=== PATIENT | male | born 1970 | race Caucasian/White ===

== ENCOUNTER 2016-10-01 07:38 | Emergency (ER) | payer OTHER ==
[~2016-10-01] VITALS: Ht 175.3 cm; Wt 98.1 kg
[2016-10-01 07:43] VITALS: BP 171/105
[2016-10-01] MEDS ORDERED: MULT1TAB10 PO (07:46)
[2016-10-01] MEDS ORDERED: AMLO10TA2 PO (07:46)
[2016-10-01] MEDS ORDERED: GABA-283 PO (07:46)
[2016-10-01] MEDS ORDERED: HYDR25TAB PO (07:46)
[2016-10-01] MEDS ORDERED: TETRACAINE 0.5% OPHTH SOLN 4ML OD ONE (08:15)
[2016-10-01] MEDS ORDERED: FLUORESCEIN OPHTH 1 MG STRIP OD ONE (08:15)
[2016-10-01] MEDS ORDERED: OCUF0.25 OD (08:26)
== END 2016-10-01 08:44 | disposition home or self-care (01) ==
LOC: M ED 07:38
DX: S05.01XA Injury of conjunctiva and corneal abrasion without foreign body, right eye, initial encounter (principal); W22.8XXA Striking against or struck by other objects, initial encounter; Y92.019 Unspecified place in single-family (private) house as the place of occurrence of the external cause; Y93.9 Activity, unspecified; Y99.8 Other external cause status; G47.30 Sleep apnea, unspecified; Z87.39 Personal history of other diseases of the musculoskeletal system and connective tissue; Z79.899 Other long term (current) drug therapy

== ENCOUNTER 2017-12-04 08:20 | Emergency (ER) | payer OTHER | END 2017-12-04 08:59 | disposition home or self-care (01) | LOC: M ED 08:20 | DX: S52.592A Other fractures of lower end of left radius, initial encounter for closed fracture (principal); S52.615A Nondisplaced fracture of left ulna styloid process, initial encounter for closed fracture; W01.0XXA Fall on same level from slipping, tripping and stumbling without subsequent striking against object, initial encounter; Y92.410 Unspecified street and highway as the place of occurrence of the external cause; Y93.89 Activity, other specified; Y99.9 Unspecified external cause status; Z79.899 Other long term (current) drug therapy | CPT/HCPCS: 73110 ==

== ENCOUNTER → 2018-05-03 | Outpatient (CLI) | payer OTHER ==
[~2018-05-03] MED LIST: AMLO10TA5 PO; GABA-845 PO; HYDR25TAB PO; MULT1TAB10 PO; OCUF0.25 OD
--- NOTE | 2018-05-04 02:52 | REP ---
Clinical: Trauma. Technique: Frontal view of the chest with six views of the right hemithorax. Findings: Frontal view of the chest best demonstrates an acute posterolateral right 5th rib fracture. Multiple views of the right hemithorax demonstrate acute versus healed lateral right 7th - 10th rib fractures. No consolidation/contusion, effusion, or pneumothorax appreciated. Impression: Acute right lateral fifth rib fracture. Acute versus healed right 7th - 10th rib fractures. Electronically Signed by Vance Lozada MD 05/04/2018 02:43 A
== END ==
LOC: M WUC 18:06
PROVIDERS: ATTEND Physician Assistant
DX: S20.221A Contusion of right back wall of thorax, initial encounter (principal); S22.31XA Fracture of one rib, right side, initial encounter for closed fracture; Y93.9 Activity, unspecified; Y92.9 Unspecified place or not applicable; Y99.9 Unspecified external cause status; X58.XXXA Exposure to other specified factors, initial encounter

== ENCOUNTER 2020-10-13 06:54 | Emergency (ER) | payer OTHER ==
[~2020-10-13] VITALS: Ht 175.3 cm; Wt 99.3 kg
[~2020-10-13 06:54] MED LIST changes: -AMLO10TA5 PO; +AMLO1TAB25 PO; +GABA-283 PO; -GABA-845 PO; +HYDR-3490 PO; -HYDR25TAB PO
[2020-10-13 09:20] LABS: BASO % 0.2 % (0.0-1.0); HEMATOCRIT 46.8 % (42.0-52.0); HEMOGLOBIN 16.6 g/dl (13.5-17.5); LYMPH # 0.9 10^3/uL (1.5-5.0); LYMPH % 7.3 % (24.0-44.0); MEAN CORPUSCULAR HEMOGLOBIN 30.8 pg (27.0-33.0); MEAN CORPUSCULAR HGB CONC 35.5 g/dl (32.0-36.5); MEAN CORPUSCULAR VOLUME 86.8 fl (80.0-96.0); MONO # 0.8 10^3/uL (0.0-0.8); MONO % 6.1 % (2.0-8.0); NEUTROPHILS # 10.6 10^3/uL (1.5-8.5); PLATELET COUNT, AUTOMATED 251 10^3/uL (150-450); RED BLOOD COUNT 5.39 10^6/uL (4.30-6.10); WHITE BLOOD COUNT 12.3 10^3/uL (4.0-10.0)
[2020-10-13 09:52] LABS: ALBUMIN 3.8 GM/DL (3.2-5.2); ALT/SGPT 37 U/L (12-78); BILIRUBIN,DIRECT 0.3 MG/DL (0.0-0.2); BILIRUBIN,TOTAL 0.8 MG/DL (0.2-1.0); BLOOD UREA NITROGEN 16 MG/DL (7-18); CALCIUM LEVEL 8.9 MG/DL (8.5-10.1); CARBON DIOXIDE LEVEL 25 MEQ/L (21-32); CHLORIDE LEVEL 97 MEQ/L (98-107); CREATININE FOR GFR 1.15 MG/DL (0.70-1.30); GLOMERULAR FILTRATION RATE > 60.0 (>60); GLUCOSE, FASTING 111 MG/DL (70-100); POTASSIUM SERUM 3.5 MEQ/L (3.5-5.1); SODIUM LEVEL 132 MEQ/L (136-145); TOTAL PROTEIN 7.6 GM/DL (6.4-8.2)
[2020-10-13] MEDS ORDERED: ZITH500T PO (10:46)
[2020-10-13 11:03] VITALS: BP 126/81
== END 2020-10-13 11:04 | disposition home or self-care (01) ==
LOC: M ED 06:54
DX: A04.5 Campylobacter enteritis (principal); Z79.899 Other long term (current) drug therapy

== ENCOUNTER 2020-10-19 05:11 | Inpatient (IN) | payer OTHER ==
[~2020-10-19] VITALS: Ht 175.3 cm; Wt 89.4 kg
[~2020-10-19 05:11] MED LIST changes: +ZITH500T PO
[2020-10-19] MEDS ORDERED: NS 1,000 ML IV ONE ×2 (07:00→09:10)
[2020-10-19 07:35] LABS: BASO # 0.1 10^3/uL (0.0-0.2); BASO % 0.3 % (0.0-1.0); EOS # 0.2 10^3/uL (0.0-0.5); EOS % 1.1 % (0.0-3.0); HEMATOCRIT 45.9 % (42.0-52.0); HEMOGLOBIN 16.1 g/dl (13.5-17.5); LYMPH # 1.3 10^3/uL (1.5-5.0); MEAN CORPUSCULAR HEMOGLOBIN 30.6 pg (27.0-33.0); MEAN CORPUSCULAR HGB CONC 35.1 g/dl (32.0-36.5); MEAN CORPUSCULAR VOLUME 87.3 fl (80.0-96.0); MONO # 0.6 10^3/uL (0.0-0.8); MONO % 3.3 % (2.0-8.0); NEUTROPHILS # 16.6 10^3/uL (1.5-8.5); NEUTROPHILS % 85.9 % (36.0-66.0); PLATELET COUNT, AUTOMATED 349 10^3/uL (150-450); RED BLOOD COUNT 5.26 10^6/uL (4.30-6.10); WHITE BLOOD COUNT 19.3 10^3/uL (4.0-10.0)
[2020-10-19 07:54] LABS: AMORPHOUS SEDIMENT SMALL (NEGATIVE); APPEARANCE, URINE HAZY (CLEAR); BACTERIA, URINE AUTO 1+ (NEGATIVE); BILIRUBIN, URINE AUTO NEGATIVE (NEGATIVE); BLOOD, URINE BLOOD 3+ (NEGATIVE); COLOR, URINE AMBER (YELLOW); GLUCOSE, URINE (UA) AUTO 1+ mg/dL (NEGATIVE); KETONE, URINE AUTO NEGATIVE (NEGATIVE); LEUKOCYTE ESTERASE, URINE AUTO NEGATIVE (NEGATIVE); MUCUS, URINE SMALL (NEGATIVE); NITRITE, URINE AUTO NEGATIVE (NEGATIVE); PROTEIN, URINE AUTO 2+ mg/dL (NEGATIVE); RBC, URINE AUTO 1 /HPF (0-3); SPECIFIC GRAVITY URINE AUTO 1.009 (1.002-1.035); SQUAMOUS EPITHELIAL CELL UR AU 0 /HPF (0-6); UROBILINOGEN, URINE AUTO 0.2 mg/dL (0.0-2.0); WBC, URINE AUTO 3 /HPF (0-3)
[2020-10-19 08:58] LABS: BILIRUBIN,DIRECT 0.2 MG/DL (0.0-0.2); BILIRUBIN,TOTAL 0.9 MG/DL (0.2-1.0); CALCIUM LEVEL 7.6 MG/DL (8.5-10.1); CREATININE FOR GFR 4.34 MG/DL (0.70-1.30); GLOMERULAR FILTRATION RATE 15.5 (>60); POTASSIUM SERUM 4.2 MEQ/L (3.5-5.1); TOTAL PROTEIN 6.3 GM/DL (6.4-8.2)
[2020-10-19] MEDS ORDERED: GABA-282 PO (09:38)
[2020-10-19] MEDS ORDERED: GLUC500C37 PO (09:44)
[2020-10-19] MEDS ORDERED: SUPETAB44 PO (09:44)
[2020-10-19] MEDS ORDERED: VITMTA PO (09:44)
[2020-10-19] MEDS ORDERED: HOME MED LIST COMPLETE! XX SCH (09:45)
[2020-10-19] MEDS ORDERED: NS 0.45% IV SCH (11:00)
[2020-10-19] MEDS ORDERED: SODIUM BICARBONATE IV SCH (11:00)
[2020-10-19] MEDS ORDERED: POTASSIUM CHLORIDE IV SCH (11:00)
--- NOTE | 2020-10-19 11:14 | HPEPDOC ---
General Date of Admission Oct 19, 2020 at 09:30 Date of Service: Oct 19, 2020 Chief Complaint The patient is a 50-year-old male admitted with a reason for visit of Acute Kidney Injury Rhabdomyolysis. Source: Patient, RN/MD History of Present Illness 50-year-old male with past medical history of hypertension, sleep apnea on CPAP, chronic back pain, obesity, presented to the ED on 10/19/2020 for generalized muscle aches, pains, weakness and inability to ambulate properly. 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 Patient says 'I walk like I am 81 years old". Patient rates the muscle pains as 8/10, dull aching in nature involves his back muscles his leg muscles his arms and hands. Patient was here on 10/13/2020 for diarrhea, abdominal bloating and was found to have a Campylobacter diarrhea and was rachel celestino with a 3-day course of azithromycin which he finished on 10/16/2020. At present his diarrhea has resolved he does not have any nausea or vomiting or abdominal pain. In the ED he was found to have creatinine of 4.5, CPK of over 200,000, AST of over 5000, ALT of 1800. Patient was admitted for rhabdomyolysis and acute kidney injury. Home Medications Scheduled Amlodipine Besylate (Amlodipine Besylate) 10 Mg Tab, 10 MG PO DAILY, (Reported) Folic Acid/Vit B Complex and C (Super B Complex Tablet) 400 Mcg Tablet, 1 TAB PO DAILY, (Reported) Gabapentin (Gabapentin) 300 Mg Capsule, 600 MG PO TID, (Reported) Glucosa Schwarz 2Kcl/Chondroitin Schwarz (Glucosamine & Chondroitin Cap) 1 Each Capsule, 1 CAP PO DAILY, (Reported) Hydrochlorothiazide (Hydrochlorothiazide) 25 Mg Tab, 25 MG PO DAILY, (Reported) Multivitamins (Thera M Plus Tablet) 1 Each Tablet, 1 TAB PO DAILY, (Reported) Allergies Coded Allergies: No Known Allergies (Unverified , 03/04/14) Past Medical History Medical History Hypertension sleep apnea on CPAP chronic back pain obesity Surgical History Right shoulder and left shoulder surgery left bunionectomy right ulnar nerve release at the elbow and the cubital tunnel Family History Significant Family History: Cancer (prostate ca father), Hypertension (mother and father) Social History * Smoker: other (vape) Alcohol: rarely Drugs: denies A-FIB/CHADSVASC A-FIB History Current/History of A-Fib/PAF?: No Review of Systems Constitutional: Reports: Weakness; Denies: Chills, Fever, Night Sweats Eyes: Denies: Pain, Vision change ENT: Denies: Head Aches, Ear Pain, Dysphagia Skin: Denies: Rash, Lesions, Breakdown Pulmonary: Denies: Dyspnea, Cough Cardiovascular: Denies: Chest Pain, Palpitations, Orthopnea, Paroxysmal Noc. Dyspnea, Lt Headedness Gastrointestinal: Denies: Nausea, Vomiting, Abdominal Pain, Diarrhea Genitourinary: Denies: Dysuria, Frequency, Incontinence, Retention Hematologic: Denies: Bruising, Bleeding Excessively Musculoskeletal: Reports: Arm Pain, Leg Pain, Joint Pain, Muscle Pain Neurological: Denies: Change in speech, Confusion Physical Examination General Exam: Positive: Alert, Cooperative, No Acute Distress Eye Exam: Positive: PERRLA, Conjunctiva & lids normal, EOMI; Negative: Sclera icteric ENT Exam: Positive: Atraumatic, Mucous membr. moist/pink, Pharynx Normal Neck Exam: Positive: Supple; Negative: JVD, thyromegaly Chest Exam: Positive: Clear to auscultation, Normal air movement Heart Exam: Positive: Rate Normal, Regular Rhythm, Normal S1, Normal S2; Negative: Murmurs, Rubs Abdomen Exam: Positive: Normal bowel sounds, Soft; Negative: Tenderness, Hepatospenomegaly Extremity Exam: Negative: Clubbing, Cyanosis, Edema Skin Exam: Positive: Nl turgor and temperature; Negative: Breakdown, Lesion Neuro Exam: Positive: Normal Speech, Strength at 5/5 X4 ext, Cranial Nerves 3- 12 NL, Reflexes 2+ Psych Exam: Positive: Memory Intact, Oriented x 3 Vital Signs Vital Signs Date Time Temp Pulse Resp B/P (MAP) Pulse Ox O2 Delivery O2 Flow Rate FiO2 10/19/20 09:15 80 16 147/83 (104) 96 Room Air 10/19/20 07:37 98.6 Laboratory Data Labs 24H Laboratory Tests 2 10/19/20 07:12: Urine Color JALEN, Urine Appearance HAZY, Urine pH 6.0, Urine Specific [place] 1.009, Urine Protein 2+H, Urine Glucose (Auto)(UA) 1+H, Urine Ketones (Auto) NEGATIVE, Urine Blood 3+H, Urine Nitrite NEGATIVE, Urine Bilirubin NEGATIVE, Urine Urobilinogen 0.2, Urine Leukocyte Esterase (Auto) NEGATIVE, Urine WBC (Auto) 3, Urine RBC (Auto) 1, Urine Hyaline Casts (Auto) 0, Urine Bacteria (Auto) 1+H, Urine Squamous Epithelial Cells 0, Urine Amorphous Sediment (Auto) SMALLH, Urine Mucus (Auto) SMALL, Urine Sperm (Auto) , Urine Myoglobin POSITIVE 10/19/20 07:21: Immature Granulocyte % (Auto) 2.4, Neutrophils (%) (Auto) 85.9H, Lymphocytes (%) (Auto) 7.0L, Monocytes (%) (Auto) 3.3, Eosinophils (%) (Auto) 1.1, Basophils (%) (Auto) 0.3, Neutrophils # (Auto) 16.6H, Lymphocytes # (Auto) 1.3L, Monocytes # (Auto) 0.6, Eosinophils # (Auto) 0.2, Basophils # (Auto) 0.1, Nucleated Red Blood Cells % (auto) 0.0, Anion Gap 11, Glomerular Filtration Rate 15.5L, Calc ium Level 7.6L, Total Bilirubin 0.9, Direct Bilirubin 0.2, Aspartate Amino Transf (AST/SGOT) 5624H, Alanine Aminotransferase (ALT/SGPT) 1899H, Alkaline Phosphatase 69, Total Creatine Kinase 183042F, Total Protein 6.3L, Albumin 3.0L, Albumin/Globulin Ratio 0.9 10/19/20 08:56: CBC/BMP Laboratory Tests 10/19/20 07:21 Assessment/Plan 50-year-old male with past medical history of hypertension, sleep apnea on CPAP, chronic back pain, obesity, presented to the ED on 10/19/2020 for generalized muscle aches, pains, weakness and inability to ambulate properly. 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 Patient says 'I walk like I am 81 years old". Patient was here on 10/13/2020 for diarrhea, abdominal bloating and was found to have a Campylobacter diarrhea and was treated with a 3-day course of azithromycin which he finished on 10/16/2020. At present his diarrhea has resolved he does not have any nausea or vomiting or abdominal pain. In the ED he was found to have creatinine of 4.5, CPK of over 200,000, AST of over 5000, ALT of 1800. Patient was admitted for rhabdomyolysis and acute kidney injury. Rhabdomyolysis with ANDREA Received 2 L of fluids in the emergency We will start the patient on bicarb infusion with potassium in it. Intake output every 4 hours, daily weight Nephrology has been consulted Campylobacter diarrhea Resolved Hypertension Continue amlodipine TASHA May use own CPAP Plan / VTE VTE Prophylaxis Ordered?: Yes Hallie Aleman MD Oct 19, 2020 10:03
[2020-10-19 12:00] VITALS: BP 173/102
[2020-10-19] MEDS: POTASSIUM CHLORIDE IV SCH ×3 (12:05→22:49)
[2020-10-19] MEDS: SODIUM BICARBONATE IV SCH ×3 (12:05→22:49)
[2020-10-19] MEDS: NS 0.45% IV SCH ×3 (12:05→22:49)
[2020-10-19 14:00] VITALS: BP 162/79
[2020-10-19 16:34] LABS: ALBUMIN 2.5 GM/DL (3.2-5.2); CALCIUM LEVEL 6.9 MG/DL (8.5-10.1); CREATININE FOR GFR 5.06 MG/DL (0.70-1.30); PHOSPHORUS LEVEL 5.9 MG/DL (2.5-4.9)
[2020-10-19 18:48] LABS: MAGNESIUM LEVEL 2.7 MG/DL (1.8-2.4)
--- NOTE | 2020-10-19 19:08 | CR ---
NEPHROLOGY CONSULTATION DATE: 10/19/2020 REQUESTING PHYSICIAN: Dr. Hallie Aleman CONSULTING PHYSICIAN: Dr. Hans Mcnulty REASON FOR CONSULTATION: Acute renal failure and severe rhabdomyolysis. HISTORY OF PRESENT ILLNESS: Mr. Dunn is a 50-year-old male with a known history of hypertension, sleep apnea and obesity. He is a mar[place] who was here in the Emergency Room on the 13 of October with diarrhea and was found to have Campylobacter and was treated with a 3-day course of Azithromycin which he finished on the . He reports that on the he woke up and could not walk. His muscles have been very sore and limbs and back. He managed to do some things for the last 48 hours, however today he felt very weak and could not walk at all due to which he presented to the Emergency Room. He was found to have a CPK level greater than 200,000 and a creatinine level of 4.5. He is admitted to [facility] and a Nephrology consultation was requested. The patient is seen this afternoon. PAST MEDICAL AND SURGICAL HISTORY: The patient's past medical and surgical history is significant for: 1. Hypertension. 2. Sleep apnea. 3. Obesity. 4. Chronic back pain. PAST SURGICAL HISTORY: The patient's past surgical history is significant for: 1. Right shoulder surgery. 2. Left foot surgery. 3. He also had a right ulnar nerve release. MEDICATIONS: Home medications include: 1. Amlodipine 10 mg daily. 2. Multivitamin one tablet daily. 3. Gabapentin 600 mg three times daily. 4. Glucosamine one capsule daily. 5. Hydrochlorothiazide 25 mg daily. ALLERGIES: He has no known drug allergies. FAMILY HISTORY: The patient's family history is negative for any renal problems. PERSONAL AND SOCIAL HISTORY: The patient rarely drinks alcohol. He denies any drug use. He does vape. REVIEW OF SYSTEMS: Constitutional: The patient did have fever on October 13 when he had diarrhea. Now he denies any fever for the last few days. He developed generalized weakness on the 17 of October. He denies any headache. Ears, Nose and Throat: Unremarkable. Cardiovascular: Significant for hypertension and no leg edema or shortness of breath. Respiratory: He denies any cough or hemoptysis on review of respiratory system. Gastrointestinal: Significant for recent history of diarrhea due to Campylobacter and was treated with Azithromycin for 3 days. He denies any vomiting or diarrhea at present. Genitourinary: Significant for decreased urine output for the last couple of days. Musculoskeletal: Significant for generalized muscle soreness and weakness. Skin: Negative for rashes or ulcers. Neurological: Significant for neuropathy. He denies any history of stroke or seizures. Psychosocial: Negative for depression or anxiety. Endocrine: Negative for diabetes or thyroid problems. PHYSICAL EXAMINATION: VITAL SIGNS: Temperature 97.3 degrees Fahrenheit, heart rate 84 per minute, respiratory rate 16 per minute, blood pressure 162/79 mm of mercury and oxygen saturation is 97% on room air. HEENT: His head is atraumatic. EARS, NOSE AND THROAT: Unremarkable. NECK: Supple and without JVD or thyroid enlargement. HEART: Regular. LUNGS: Clear to auscultation. ABDOMEN: Soft and nontender and bowel sounds are normal. EXTREMITIES: Without any cyanosis or clubbing. NEUROLOGICAL: Awake, alert, oriented x3. SKIN: No rash or ulcers. LABORATORY DATA: Sodium 132, potassium 4.2, CO2 25, chloride 96, BUN 37, creatinine 4.37. Glucose 101 and calcium 7.6. Total bilirubin 0.9, AST 5,624, ALT 1,899 and CPK 200,240. Total protein 6.3 and albumin is 3.0. Urine was positive for myoglobin. Urinalysis showed 2+ protein and 3+ blood. There was only 1 RBC and 3 WBCs. PROBLEMS: 1. Acute renal failure - most likely this is related to rhabdomyolysis and possible dehydration. I have already discussed with the admitting physician and recommended aggressive IV fluid hydration with 200 mL per hour. We are using half normal saline with 50 mEq sodium bicarbonate added. His creatinine is disproportionately elevated due to muscle injury. At this point there is no emergent indication for dialysis. kidney function will be monitored frequently. It is quite likely that the patient might require temporary dialysis, however there is also the possibility that his kidney function will start improving over the next 48 hours. 2. Rhabdomyolysis - The patient has severe rhabdomyolysis with CPK level greater than 200,000. The patient will be hydrated with IV fluids and added sodium bicarbonate in them. CPK level will be repeated again this afternoon and tomorrow morning. 3. Hypertension - blood pressure is slightly elevated. I would recommend not to use Hydrochlorothiazide, however he can take his Amlodipine 10 mg daily. We can also beta bianca if needed. I would also recommend to avoid any hernesto inhibitor or angiotensin receptor blockers in view of acute kidney injury. Thank you for involving me in the care of Mr. Dunn. Nephrology Service will follow him closely.
--- NOTE | 2020-10-19 19:21 | ECGEPIP ---
[facility] - ED Test Date: 2020-10-19 Pat Name: JOSE A HILL Department: Room: - Gender: Male Test Pilot: : 1970 Requested By: STARLA ZAPATA PA-C. Order Number: [id number] Reading MD: Trent Vega Measurements Intervals Shepherd Rate: 78 P: 30 MS: 166 QRS: 12 QRSD: 88 T: 17 QT: 386 QTc: 440 Interpretive Statements Normal sinus rhythm Nonspecific ST T wave changes Delayed R wave progression 07/19/[address] T wave changes Electronically Signed on 10-19-2020 19:21:13 EDT by Trent Vega
[2020-10-19] MEDS: GABAPENTIN 300 MG CAP PO SCH (21:45)
[2020-10-19 22:00] VITALS: BP 154/94
[2020-10-20] MEDS: NS 0.45% IV SCH ×2 (04:24→12:38)
[2020-10-20] MEDS: SODIUM BICARBONATE IV SCH ×2 (04:24→12:38)
[2020-10-20] MEDS: POTASSIUM CHLORIDE IV SCH ×2 (04:24→12:38)
[2020-10-20 06:00] VITALS: BP_SYST 154; BP_SYST 158; BP_DIAS 94
--- NOTE | 2020-10-20 09:20 | IPNPDOC ---
Subjective Date Seen The patient was seen on 10/20/20. Subjective Chief Complaint/HPI Complains of body aches and tightness and stiffness now in thighs, calves. Continues to have difficulty in walking. Objective Physical Examination General Exam: Positive: Alert, Cooperative, No Acute Distress Eye Exam: Positive: PERRLA, Conjunctiva & lids normal, EOMI; Negative: Sclera icteric ENT Exam: Positive: Atraumatic, Mucous membr. moist/pink, Pharynx Normal Neck Exam: Positive: Supple; Negative: JVD, thyromegaly Chest Exam: Positive: Clear to auscultation, Normal air movement Heart Exam: Positive: Rate Normal, Regular Rhythm, Normal S1, Normal S2; Negative: Murmurs, Rubs Abdomen Exam: Positive: Normal bowel sounds, Soft; Negative: Tenderness, Hepatospenomegaly Extremity Exam: Negative: Clubbing, Cyanosis, Edema Skin Exam: Positive: Nl turgor and temperature; Negative: Breakdown, Lesion Neuro Exam: Positive: Normal Speech, Strength at 5/5 X4 ext, Cranial Nerves 3- 12 NL, Reflexes 2+ Psych Exam: Positive: Memory Intact, Oriented x 3 Assessment /Plan Assessment 50-year-old male with past medical history of hypertension, sleep apnea on CPAP, chronic back pain, obesity, presented to the ED on 10/19/2020 for generalized muscle aches, pains, weakness and inability to ambulate properly. 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 Patient says 'I walk like I am 81 years old". Patient was here on 10/13/2020 for diarrhea, abdominal bloating and was found to have a Campylobacter diarrhea and was treated with a 3-day course of azithromycin which he finished on 10/16/2020. At present his diarrhea has resolved he does not have any nausea or vomiting or abdominal pain. In the ED he was found to have creatinine of 4.5, CPK of over 200,000, AST of over 5000, ALT of 1800. Patient was admitted for rhabdomyolysis and acute kidney injury. Rhabdomyolysis with ANDREA Creatinine up to 5.6 yesterday afternoon, Made about 675 urine in the last 24 hours with a positive balance of > 5L , todays lab pending. Will stop the Bicarb gtt. If renal functions does not start improving in the next 24 hours may need HD. Nephrology following. Campylobacter diarrhea Resolved Hypertension Continue amlodipine TASHA May use own CPAP Plan/VTE VTE Prophylaxis Ordered?: Yes VS, I&O, 24H, Fishbone Vital Signs/I&O Vital Signs Date Time Temp Pulse Resp B/P (MAP) Pulse Ox O2 Delivery O2 Flow Rate FiO2 10/20/20 06:00 98.9 78 18 158/94 (115) 96 Room Air I&O- Last 24 Hours up to 6 AM 10/20/20 06:00 Intake Total 7115 ml Output Total 675 ml Balance 6440 ml Laboratory Data 24H LABS Laboratory Tests 2 10/19/20 08:56: Coronavirus (COVID-19)(PCR) NEGATIVE 10/19/20 15:57: Anion Gap 7L, Glomerular Filtration Rate 13.0L, Calcium Level 6.9L, Phosphorus Level 5.9H, Magnesium Level 2.7H, Total Creatine Kinase 02314H, Albumin 2.5L CBC/BMP Laboratory Tests 10/19/20 15:57 Hallie Aleman MD Oct 20, 2020 07:43
[2020-10-20 09:30] LABS: BASO % 0.2 % (0.0-1.0); EOS # 0.2 10^3/uL (0.0-0.5); EOS % 1.1 % (0.0-3.0); HEMATOCRIT 39.7 % (42.0-52.0); LYMPH # 0.9 10^3/uL (1.5-5.0); LYMPH % 5.8 % (24.0-44.0); MEAN CORPUSCULAR HEMOGLOBIN 30.2 pg (27.0-33.0); MEAN CORPUSCULAR VOLUME 86.1 fl (80.0-96.0); MONO # 0.5 10^3/uL (0.0-0.8); MONO % 2.9 % (2.0-8.0); NEUTROPHILS # 14.4 10^3/uL (1.5-8.5); NEUTROPHILS % 88.2 % (36.0-66.0); PLATELET COUNT, AUTOMATED 308 10^3/uL (150-450); RED BLOOD COUNT 4.61 10^6/uL (4.30-6.10); WHITE BLOOD COUNT 16.3 10^3/uL (4.0-10.0)
[2020-10-20 09:34] LABS: HEMOGLOBIN 13.9 g/dl (13.5-17.5)
[2020-10-20] MEDS ORDERED: FUROSEMIDE 100MG/10ML VIAL (J1940) IV ONE ×2 (10:20→17:00)
[2020-10-20 11:20] LABS: ALBUMIN 2.3 GM/DL (3.2-5.2); BILIRUBIN,TOTAL 0.6 MG/DL (0.2-1.0); CALCIUM LEVEL 6.8 MG/DL (8.5-10.1); CREATININE FOR GFR 6.42 MG/DL (0.70-1.30); GLOMERULAR FILTRATION RATE 9.9 (>60); MAGNESIUM LEVEL 2.6 MG/DL (1.8-2.4); PHOSPHORUS LEVEL 5.7 MG/DL (2.5-4.9); POTASSIUM SERUM 4.5 MEQ/L (3.5-5.1); TOTAL PROTEIN 5.4 GM/DL (6.4-8.2)
--- NOTE | 2020-10-20 12:28 | IPN ---
NEPHROLOGY PROGRESS NOTE DATE: 10/20/2020 SUBJECTIVE: Patient was seen and examined at the bedside today morning. He is afebrile, hemodynamically stable. However, he remains oliguric. There is no improvement in the renal function. Creatinine continues to rise. He was complaining of some shortness of breath today morning. He was more than 5 liters positive fluid balance. Primary team already decreased his intravenous (IV) fluids to 100 mL/h. He is still unable to walk to the restroom because of severe muscle weakness. OBJECTIVE: VITAL SIGNS: Temperature 98.9 degrees Fahrenheit, blood pressure 158/94, pulse 78, respiratory rate 18, saturating 96%% on room air. INTAKE AND OUTPUT: Urine output recorded as 350 mL yesterday, 325 mL so far today since overnight. Weight in the bed scale is 108.9 kg. PHYSICAL EXAMINATION: GENERAL: Patient is awake, alert, oriented times three, laying in bed, obese body habitus. HEAD AND NECK EXAM: Extraocular muscles intact. Pupils equally round and reactive to light. Mucous membranes are moist. Neck is supple. There is mildly elevated jugular venous distention (JVD). CARDIOVASCULAR: S1, S2. Regular rate. Trace edema of the bilateral lower extremities. RESPIRATORY: Mildly decreased breath sounds at the bases. Otherwise, no active rales or rhonchi. ABDOMEN: Soft. Positive bowel sounds. Nontender. No organomegaly MUSCULOSKELETAL: Patient moves all extremities; however, he is unable to walk around because of severe weakness. CENTRAL NERVOUS SYSTEM (UPS DRIVER): No focal deficit at this time. He moves extremities an follows commands. LABORATORY REVIEW: CBC showed WBC 16.3, hemoglobin 13.9, platelets 308. BMP showed sodium 128, potassium 4.5, chloride 93, bicarbonate 25, BUN 57, creatinine 6.4, calcium 6.8, phosphorus 5.7, magnesium 2.6. AST 4493, ALT 1735. CPK level is 196,700. Albumin level is 2.3. CURRENT INPATIENT MEDICATIONS: Patient's medications were all reviewed by myself. His IV bicarbonate containing fluid was decreased to 100 mL/h today morning. He continues to be on amlodipine 10 mg by mouth daily. I gave him a dose of Lasix 60 mg IV times one dose. No other significant change in the medications today. ASSESSMENT AND PLAN: 1. Acute oliguric renal failure secondary to rhabdomyolysis. Patient was getting IV fluid hydration, but he is in positive fluid balance right now. IV fluid rate has been decreased. I explained to the patient that I would have a low threshold to start the patient on hemodialysis since he is oliguric and his creatinine continues to rise. I am going to try giving him a dose of Lasix and seeing if his oliguric renal failure can convert into nonoliguric renal failure, and then we can wait for his renal recovery. 2. Acute rhabdomyolysis. Patient's CPK level is still high. However, because of oliguria, the rate of IV fluid has been decreased. He continues to be on bicarbonate containing fluids. Along with the fluid, a dose of IV Lasix has been ordered today. 3. Hypocalcemia. Patient has mild hypocalcemia, but phosphorus levels are high, so I would not give any IV calcium at this time until calcium level drops further. 4. Hyperphosphatemia. It is secondary to rhabdomyolysis and acute renal failure. I am going to start the patient on calcium acetate as a phosphorus binder. 5. Hypertension. Okay to continue amlodipine at this time for high blood pressure. IV fluid rate has been decreased. Avoid the use of angiotensin converting enzyme (FILIPPO) inhibitors at this time.
[2020-10-20] MEDS: CALCIUM ACETATE 667MG GELCAP PO SCH ×2 (12:38→17:23)
[2020-10-20 14:00] VITALS: BP 176/81
[2020-10-20 19:13] LABS: CALCIUM LEVEL 7.1 MG/DL (8.5-10.1); POTASSIUM SERUM 4.4 MEQ/L (3.5-5.1)
[2020-10-20] MEDS: GABAPENTIN 300 MG CAP PO SCH (20:12)
[2020-10-20] MEDS: traMADol 50 MG TAB PO PRN (20:13)
[2020-10-20 22:00] VITALS: BP 171/85
[2020-10-20] MEDS ORDERED: BENZONATATE 100MG CAPSULE PO PRN (23:00)
--- NOTE | 2020-10-21 00:14 | REPVR ---
PROCEDURE INFORMATION: Exam: XR Chest Exam date and time: 10/20/2020 11:25 PM Age: 50 years old Clinical indication: Shortness of breath; Additional info: SOB, cough TECHNIQUE: Imaging protocol: XR of the chest. Views: 1 view. COMPARISON: CR RIBS UNLATERAL WITH PA CHEST 05/03/2018 6:13 PM FINDINGS: Lungs: There is decreased inflation of the lungs. Minimal right base infiltrate or atelectasis since the prior study. The left lung is unchanged. Pleural spaces: Unremarkable. No pleural effusion. No pneumothorax. Heart/Mediastinum: The heart and mediastinum are unchanged. Bones/joints: Degenerative change is noted in the left shoulder. IMPRESSION: 1. Poor inspiratory chest with minimal right base infiltrate or atelectasis since 05/03/2018. 2. Otherwise stable chest. Electronically signed by: Broderick Holley On 10/21/2020 00:13:21 AM
[2020-10-21 06:00] VITALS: BP 180/96
[2020-10-21 06:11] LABS: BASO % 0.2 % (0.0-1.0); EOS # 0.1 10^3/uL (0.0-0.5); EOS % 0.8 % (0.0-3.0); HEMATOCRIT 40.5 % (42.0-52.0); HEMOGLOBIN 14.5 g/dl (13.5-17.5); LYMPH # 0.8 10^3/uL (1.5-5.0); LYMPH % 5.3 % (24.0-44.0); MEAN CORPUSCULAR HEMOGLOBIN 30.8 pg (27.0-33.0); MEAN CORPUSCULAR HGB CONC 35.8 g/dl (32.0-36.5); MONO # 0.4 10^3/uL (0.0-0.8); MONO % 2.9 % (2.0-8.0); NEUTROPHILS # 13.8 10^3/uL (1.5-8.5); NEUTROPHILS % 89.1 % (36.0-66.0); PLATELET COUNT, AUTOMATED 336 10^3/uL (150-450); RED BLOOD COUNT 4.71 10^6/uL (4.30-6.10); WHITE BLOOD COUNT 15.4 10^3/uL (4.0-10.0)
[2020-10-21 07:54] LABS: ALBUMIN 2.4 GM/DL (3.2-5.2); ALT/SGPT 1719 U/L (12-78); BILIRUBIN,TOTAL 0.6 MG/DL (0.2-1.0); BLOOD UREA NITROGEN 75 MG/DL (7-18); CALCIUM LEVEL 7.3 MG/DL (8.5-10.1); CARBON DIOXIDE LEVEL 20 MEQ/L (21-32); CHLORIDE LEVEL 91 MEQ/L (98-107); CPK CREATINE PHOSPHOKINASE 113239 U/L (39-308); CREATININE FOR GFR 8.14 MG/DL (0.70-1.30); GLOMERULAR FILTRATION RATE 7.5 (>60); GLUCOSE, FASTING 97 MG/DL (70-100); MAGNESIUM LEVEL 2.7 MG/DL (1.8-2.4); NT-PRO BNP 3839 PG/ML (<125); POTASSIUM SERUM 4.5 MEQ/L (3.5-5.1); SODIUM LEVEL 123 MEQ/L (136-145); TOTAL PROTEIN 5.6 GM/DL (6.4-8.2)
[2020-10-21 08:09] LABS: CHOLESTEROL LEVEL 148 MG/DL (<200); CHOLESTEROL RISK RATIO 3.894 (<5); HDL CHOLESTEROL 38 MG/DL (>40); LDL CHOLESTEROL 81 MG/DL (<100); NON-HDL-C 110 MG/DL; TRIGLYCERIDES LEVEL 147 MG/DL (<150)
[2020-10-21] MEDS: **hydrALAZINE** 50 MG TAB PO PRN ×2 (08:55→21:37)
[2020-10-21] MEDS: CALCIUM ACETATE 667MG GELCAP PO SCH ×3 (08:55→17:40)
[2020-10-21] MEDS: IPRATROPIUM 0.5MG/ALBUTEROL 2.5MG INH SOL UD 3ML (DUONEB) NEB PRN (09:41)
[2020-10-21 10:29] LABS: HEMOGLOBIN A1c 5.5 %
--- NOTE | 2020-10-21 12:28 | IPNPDOC ---
Date Seen The patient was seen on 10/21/20. Progress Note SUBJECTIVE: Patient was seen and examined at bedside this morning. Continues to express diffuse myalgia. Has made approximately 250 cc of clear urine overnight. I discussion with nephrology, Dr. Pederson. Plan for insertion of a permacath and to receive dialysis this afternoon. Patient complains of abdominal fullness. Patient's creatinine kinase is trending down slowly this morning it is at 113,239 down from 196 700. Patient's BNP is elevated at 3800. Creatinine is significantly elevated at 8.14. OBJECTIVE PHYSICAL EXAMINATION: VITAL SIGNS: please see below General: NAD, comfortable HEENT: PERRLA, EOMI, sclerae clear Neck: supple, normal ROM, no JVD Respiratory: Crackles at lung bases, respiratory effort. CVS: RRR, normal S1, S2, no murmurs Abdo: soft, no masses, no hepatosplenomegaly, BS+, no rebound tenderness Extremities: 1+ edema pulses 2+ MSK: no joint deformities, normal ROM Neuro: no focal neuro deficits, moving all 4 extremities, CN2-12 intact. Strength 5/5 in all 4 extremities. No nystagmus. Psych: calm, cooperative, AAO x 3 LABORATORY DATA, IMAGING STUDIES, MICROBIOLOGY: Please see below. DVT prophylaxis ordered?: Yes ASSESSMENT AND PLAN: Mr. Dunn is a 50-year-old male with a past medical history of hypertension, sleep apnea on CPAP, chronic back pain, obesity, presented to the ER on 10/19 for generalized and diffuse muscle aches and pains with weakness and difficulty ambulating. Patient has been working hard physically as he is a [place] but lately has been very finding very difficult to walk. Patient was recently admitted on 10/13/2020 for diarrhea found to be secondary to Campylobacter. He completed 3-day course of azithromycin. On arrival patient found to have a creatinine phosphokinase level of over 200,000 as well as a creatinine of 4.5. Patient was admitted for treatment of rhabdomyolysis and acute kidney injury. He is being followed by nephrology. Despite IV fluid hydration his creatinine continues to trend upwards this mor george 8.14. Plan is for insertion of a permacath and to start dialysis this afternoon. PROBLEMS: Rhabdomyolysis with ANDREA Creatinine increased to 8.14 from 7 yesterday. UOP 250 cc overnight. Fluids were DC'd. Transaminitis is improved from over 200,000 213,000. AST and ALT slowly trending presently 3617 100 respectively. Will obtain liver ultrasound Nephrology is following, Dr. Laughlin Plan is for insertion of a permacath by vascular surgery Dr. Lester. Plan is for dialysis this afternoon. Campylobacter diarrhea Resolved, completed 3 days course of azithromycin on prior admission Hypertension Continue amlodipine Ordered hydralazine 50 mg every 8 hours as needed for systolic blood pressure above 180 Plan is for hemodialysis afternoon which will help control blood pressure due to fluid overload. Avoid NSAIDs TASHA May use own CPAP VS, I&O, 24H, Fishbone Vital Signs/I&O Vital Signs Date Time Temp Pulse Resp B/P (MAP) Pulse Ox O2 Delivery O2 Flow Rate FiO2 10/21/20 08:55 180/96 10/21/20 08:55 86 10/21/20 06:00 98.9 19 95 Room Air I&O- Last 24 Hours up to 6 AM 10/21/20 06:00 Intake Total 2570 ml Output Total 600 ml Balance 1970 ml Laboratory Data 24H LABS Laboratory Tests 2 10/20/20 15:59: Anion Gap 10, Glomerular Filtration Rate 9.0L, Calcium Level 7.1L, Total Creatine Kinase [id number] 10/21/20 05:52: Estimated Mean Plasma Glucose 111H, Hemoglobin A1c 5.5 10/21/20 06:00: Anion Gap 12, Glomerular Filtration Rate 7.5L, Calcium Level 7.3L, Total Creatine Kinase 636369M, Immature Granulocyte % (Auto) 1.7, Neutrophils (%) (Auto) 89.1H, Lymphocytes (%) (Auto) 5.3L, Monocytes (%) (Auto) 2.9, Eosinophils (%) (Auto) 0.8, Basophils (%) (Auto) 0.2, Neutrophils # (Auto) 13.8H, Lymphocytes # (Auto) 0.8L, Monocytes # (Auto) 0.4, Eosinophils # (Auto) 0.1, Basophils # (Auto) 0.0, Nucleated Red Blood Cells % (auto) 0.0, Magnesium Level 2.7H, Total Bilirubin 0.6, Aspartate Amino Transf (AST/SGOT) 3616H, Alanine Aminotransferase (ALT/SGPT) 1719H, Alkaline Phosphatase 77, DL-Ytx-[id number]-Type Natriuretic Peptide 3839H, Total Protein 5.6L, Albumin 2.4L, Albumin/Globulin Ratio 0.8, Triglycerides Level 147, Total Cholesterol 148, LDL Cholesterol 81, Non-HDL Cholesterol (LDL + VLDL) 110, Total HDL Cholesterol 38L, Cholesterol/HDL Ratio 3.894 CBC/BMP Laboratory Tests 10/20/20 15:59 10/21/20 06:00 JEFERSON MCCRAY MD Oct 21, 2020 12:28
[2020-10-21] MEDS ORDERED: ceFAZolin SOD 2 GM in IV 1 EA IV ONE (15:00)
--- NOTE | 2020-10-21 15:50 | REP ---
INDICATION: transaminitis. COMPARISON: None. TECHNIQUE: Real-time sonographic evaluation of right upper quadrant performed. FINDINGS: The gallbladder demonstrates no evidence of intraluminal sludge or calculi, wall thickening or pericholecystic fluid. There is no intrahepatic or extrahepatic biliary dilatation, common bile duct measures 5 mm in maximum diameter. Diffuse increased echotexture of the liver is most consistent with diffuse fatty infiltration. No gross mass is seen. Pancreas is not visualized due to overlying bowel gas. The right kidney demonstrates no hydronephrosis, with a normal size of 13.5 cm in length. No free fluid is seen. IMPRESSION: Findings most consistent with diffuse fatty infiltration of the liver. <Electronically signed by Jesus Alex > 10/21/20 [id number]
[2020-10-21] MEDS ORDERED: LIDOCAINE 1% MDV 20ML VIAL As Ordered ONE ×2 (16:07→16:56)
[2020-10-21] MEDS ORDERED: fentaNYL 100 MCG/2 ML INJECTION (J3010) As Ordered ONE (16:08)
[2020-10-21] MEDS ORDERED: MIDAZOLAM INJ 2MG/2ML VIAL (J2250 PER 1MG) As Ordered ONE (16:09)
[2020-10-21] MEDS ORDERED: hydrALAZINE 20MG/ML 1ML VIAL (J0360 PER 20MG) As Ordered ONE (16:45)
--- NOTE | 2020-10-21 17:25 | ROOPDOC ---
[facility] Report Of Operation Report of Operation DATE OF PROCEDURE: 10/21/20 PREPROCEDURE DIAGNOSES: Acute Renal Failure POSTPROCEDURE DIAGNOSES: Acute Renal Failure PROCEDURE PERFORMED: 1. Permacath Placement 2. Ultrasound guided percutaneous entry SURGEON: Barbara Lester MD ANESTHESIA: Local and sedation ESTIMATED BLOOD LOSS: Approximately 3 mL. COMPLICATIONS: None FINDINGS: Tip of catheter in good position DESCRIPTION OF PROCEDURE: Patient was brought to the angio suite and placed on the operating table in supine position. After adequate anesthesia was administered, the patient's right neck and chest were prepped and draped in standard surgical fashion. Local anesthetic was administered along the ant icipated route of the tunneled catheter. Using ultrasound guidance, percutaneous entry into the right IJ was performed using a micropuncture needle. Over guidewire exchange, a microsheath was placed and a Nitrex wire than passed into the SVC. A separate incision was made on the right anterior chest just below the clavicle and the dialysis catheter was tunneled from the anterior chest incision to the neck puncture site with the Saran cuff of the catheter located just below the clavicle. Under fluoroscopic guidance, a tear-away sheath was then placed over the wire and into the SVC. The catheter was then placed through the sheath with the tip located at the cavoatrial junction. The sheath was removed and both ports were tested for flow and then flushed with saline solution. IV Heparin was then instilled into both ports. A 2-0 Prolene suture was used to anchor the catheter to the chest and a 4-0 Monocryl suture to close the neck puncture site. Sterile dressings were then placed. BARBARA LESTER MD Oct 21, 2020 17:25
--- NOTE | 2020-10-21 17:27 | CR.PDOC ---
General Date of Consultation: Oct 21, 2020 Referring Provider: ANURADHA CARMICHAEL DO Consultation REASON FOR CONSULTATION/CHIEF COMPLAINT: Permacath placement. Permacath placed as requested. See surgical op note for details. Reconsult prn. Vital Signs/I&O Vital Signs Date Time Temp Pulse Resp B/P (MAP) Pulse Ox O2 Delivery O2 Flow Rate FiO2 10/21/20 17:10 99 16 98 Nasal Cannula 2.0 10/21/20 13:16 98.9 10/21/20 08:55 180/96 I&O- Last 24 Hours up to 6 AM 10/21/20 06:00 Intake Total 2570 ml Output Total 600 ml Balance 1970 ml Laboratory Data Labs 24H Laboratory Tests 2 10/21/20 05:52: Estimated Mean Plasma Glucose 111H, Hemoglobin A1c 5.5 10/21/20 06:00: Immature Granulocyte % (Auto) 1.7, Neutrophils (%) (Auto) 89.1H, Lymphocytes (%) (Auto) 5.3L, Monocytes (%) (Auto) 2.9, Eosinophils (%) (Auto) 0.8, Basophils (%) (Auto) 0.2, Neutrophils # (Auto) 13.8H, Lymphocytes # (Auto) 0.8L, Monocytes # (Auto) 0.4, Eosinophils # (Auto) 0.1, Basophils # (Auto) 0.0, Nucleated Red Blood Cells % (auto) 0.0, Anion Gap 12, Glomerular Filtration Rate 7.5L, Calcium Level 7.3L, Magnesium Level 2.7H, Total Bilirubin 0.6, Aspartate Amino Transf (AST/SGOT) 3616H, Alanine Aminotransferase (ALT/SGPT) 1719H, Alkaline Phosphatase 77, Total Creatine Kinase 575895C, KV-Wxu-B-Type Natriuretic Peptide 3839H, Total Protein 5.6L, Albumin 2.4L, Albumin/Globulin Ratio 0.8, Triglycerides Level 147, Total Cholesterol 148, LDL Cholesterol 81, Non-HDL Cholesterol (LDL + VLDL) 110, Total HDL Cholesterol 38L, Cholesterol/HDL Ratio 3.894 CBC/BMP Laboratory Tests 10/21/20 06:00 Allergies Coded Allergies: No Known Allergies (Unverified , 03/04/14) Home Medications Scheduled Amlodipine Besylate (Amlodipine Besylate) 10 Mg Tab, 10 MG PO DAILY, (Reported) Folic Acid/Vit B Complex and C (Super B Complex Tablet) 400 Mcg Tablet, 1 TAB PO DAILY, (Reported) Gabapentin (Gabapentin) 300 Mg Capsule, 600 MG PO TID, (Reported) Glucosa Schwarz 2Kcl/Chondroitin Schwarz (Glucosamine & Chondroitin Cap) 1 Each Capsule, 1 CAP PO DAILY, (Reported) Hydrochlorothiazide (Hydrochlorothiazide) 25 Mg Tab, 25 MG PO DAILY, (Reported) Multivitamins (Thera M Plus Tablet) 1 Each Tablet, 1 TAB PO DAILY, (Reported) BARBARA PHILIPPE MD Oct 21, 2020 17:26
--- NOTE | 2020-10-21 17:46 | IPN ---
NEPHROLOGY PROGRESS NOTE DATE: 10/21/2020 SUBJECTIVE: Patient was seen and examined at the bedside today morning. He remains oliguric. He got a Leo catheter placed yesterday. He got two doses of Lasix. Despite that, he has not made much urine. His I.V. fluids were stopped yesterday. He is complaining of shortness of breath and he is also complaining of more weakness of the muscles and he is unable to walk out of his bed. OBJECTIVE: VITAL SIGNS: Temperature 98.9 degrees Fahrenheit, blood pressure 180/96, pulse 95, respiratory rate 16, saturating 94% on room air. INTAKE/OUTPUT: Urine output recorded as 675 mL yesterday and 250 mL so far today since overnight. Weight in the bed scale is 110.2 kg. PHYSICAL EXAMINATION: GENERAL: Patient is awake, alert and oriented x3, lying in bed in no apparent distress. HEAD/NECK: Extraocular muscles intact. Pupils equal, round and reactive to light. Mucous membranes are moist. Neck is supple. There is no significant JVD. CVS: S1, S2, regular rate. Trace edema of the bilateral lower extremities. RESPIRATORY: Mildly decreased breath sounds at the bases, otherwise no active rales or rhonchi. ABDOMEN: Soft, positive bowel sounds, nontender. No organomegaly. MUSCULOSKELETAL: Trace edema of the bilateral lower extremities was noted. Patient has weakness of the extremities and he is unable to walk right now. Otherwise, he can follow the commands and move extremities. DRAPERY AND UPHOLSTERY ESTIMATOR: Patient is awake and alert, able to follow commands and move all extremities. LAB REVIEW: CBC showed WBC 15.4, hemoglobin 14.5, platelets 336,000. BMP showed sodium 123, potassium 4.5, chloride 91, bicarb 20, BUN 75, creatinine 8.1. Calcium 7.3, magnesium 2.7. CPK level 113,239. BNP 3,839. IMAGING STUDIES: Ultrasound of the liver was done, which showed diffuse fatty infiltration of the liver. CURRENT INPATIENT MEDICATIONS: Patient's medications were all reviewed by myself. He has been started on Ancef 2 grams I.V. x1 dose. He continues to be on Amlodipine. I.V. fluids have been stopped. He is on Hydralazine 50 mg p.o. every 8 hours p.r.n. systolic blood pressure more than 180. ASSESSMENT/PLAN: 1. Acute oliguric renal failure: It is secondary to rhabdomyolysis, there is no improvement in the renal function. I.V. fluids were stopped. I discussed initiation of hemodialysis with the patient, patient agrees with that. I have requested vascular surgery to place a tunneled dialysis catheter. Patient will be dialyzed after placement of catheter today. 2. Acute rhabdomyolysis: CPK level is slowly trending down, I.V. fluids have been stopped because of oliguria and shortness of breath. 3. Electrolyte abnormality including hypocalcemia and hypophosphatemia: Patient is already on oral calcium acetate for hypophosphatemia. Electrolytes should get better after hemodialysis. 4. Hypertension: It is secondary to positive fluid balance and aggressive I.V. fluid hydration. Okay to use amlodipine and Hydralazine. Two liters of fluid will be removed during dialysis today, that would help improve blood pressure as well. 5. Hyponatremia: Patient has hypervolemic hyponatremia, sodium level should get better with dialysis and ultrafiltration. 6. Normal anion gap metabolic acidosis: It is secondary to adrenal failure, acidosis should get better with dialysis. No need of oral bicarb administration.
[2020-10-21 20:34] LABS: HEPATITIS B SURFACE ANTIBODY POSITIVE (POSITIVE)
[2020-10-21 20:44] LABS: HEPATITIS B SURFACE ANTIGEN NEGATIVE (NEGATIVE)
[2020-10-21 21:12] LABS: HEPATITIS C VIRUS ABY INDEX < 0.0 INDEX (<0.8)
[2020-10-21 21:13] LABS: HEPATITIS B CORE ANTIBODY IGM NEGATIVE (NEGATIVE)
[2020-10-21] MEDS: GABAPENTIN 300 MG CAP PO SCH (21:37)
[2020-10-21 22:26] VITALS: BP 186/100
[2020-10-21 22:41] VITALS: BP 186/97
[2020-10-22 00:08] VITALS: BP 187/97
[2020-10-22] MEDS ORDERED: **hydrALAZINE** 50 MG TAB PO ONE (00:25)
[2020-10-22 02:04] VITALS: BP 186/98
[2020-10-22] MEDS: IPRATROPIUM 0.5MG/ALBUTEROL 2.5MG INH SOL UD 3ML (DUONEB) NEB PRN (04:12)
[2020-10-22] MEDS: CALCIUM ACETATE 667MG GELCAP PO SCH ×3 (06:32→17:52)
[2020-10-22 06:33] LABS: BASO % 0.3 % (0.0-1.0); EOS % 0.1 % (0.0-3.0); HEMOGLOBIN 13.9 g/dl (13.5-17.5); LYMPH # 0.5 10^3/uL (1.5-5.0); MEAN CORPUSCULAR HEMOGLOBIN 30.5 pg (27.0-33.0); MEAN CORPUSCULAR HGB CONC 35.6 g/dl (32.0-36.5); MEAN CORPUSCULAR VOLUME 85.7 fl (80.0-96.0); MONO # 0.6 10^3/uL (0.0-0.8); MONO % 3.6 % (2.0-8.0); NEUTROPHILS # 14.1 10^3/uL (1.5-8.5); NEUTROPHILS % 91.3 % (36.0-66.0); PLATELET COUNT, AUTOMATED 347 10^3/uL (150-450); RED BLOOD COUNT 4.55 10^6/uL (4.30-6.10); WHITE BLOOD COUNT 15.4 10^3/uL (4.0-10.0)
[2020-10-22] MEDS: MIRALAX *UNIT DOSE* 17GM PACKET PO PRN (06:33)
[2020-10-22 06:44] VITALS: BP 187/97
[2020-10-22 08:02] LABS: ALBUMIN 2.2 GM/DL (3.2-5.2); BILIRUBIN,TOTAL 0.5 MG/DL (0.2-1.0); CALCIUM LEVEL 7.7 MG/DL (8.5-10.1); CREATININE FOR GFR 8.47 MG/DL (0.70-1.30); GLOMERULAR FILTRATION RATE 7.2 (>60); MAGNESIUM LEVEL 2.6 MG/DL (1.8-2.4); POTASSIUM SERUM 4.9 MEQ/L (3.5-5.1); TOTAL PROTEIN 5.5 GM/DL (6.4-8.2)
[2020-10-22 10:50] LABS: PHOSPHORUS LEVEL 6.8 MG/DL (2.5-4.9)
--- NOTE | 2020-10-22 13:40 | IPN ---
PROGRESS NOTE DATE: 10/22/2020 SUBJECTIVE: Patient was seen and examined at the bedside today morning during hemodialysis procedure. He is tolerating the hemodialysis procedure well. He reports that he was unable to sleep at night. His blood pressures were high. He was dialyzed yesterday late night as well and he tolerated the hemodialysis procedure well. He remains oliguric at this time. There are no signs of improvement of renal function at this time. OBJECTIVE: VITAL SIGNS: Temperature is 97.5 degrees Fahrenheit, blood pressure is 187/97, pulse is 98, respiratory rate is 18, saturating 95% on room air. INTAKE AND OUTPUT: Urine output recorded as 350 ml. Ultrafiltration with hemodialysis was 2 liters yesterday. Weight on the bed scale is 112.1 kg. GENERAL: The patient is awake, alert and oriented x3, obese body habitus, laying in bed. HEAD AND NECK: Extraocular muscles are intact. Pupils are equally round and reactive to light. Mucous membranes are moist. Neck is supple. There is no significant JVD. CARDIOVASCULAR: S1 and S2, regular rate. There is trace edema of the bilateral lower extremities. RESPIRATORY: Clear to auscultation bilaterally. Bilateral equal air entry. No rales or rhonchi. ABDOMEN: Soft and obese. Positive bowel sounds, nontender. No organomegaly. MUSCULOSKELETAL: No clubbing or cyanosis. EXTREMITIES: Pulses are 2+. HOURLY SIGN LANGUAGE INTERPRETER: No focal deficit. Patient has weakness of the muscles because of rhabdomyolysis and he is unable to walk, otherwise he follows commands and moves extremities. LABORATORY DATA: CBC showed a WBC of 15.4, hemoglobin 13.9, platelets are 347,000, BMP showed a sodium of 128 potassium 4.9, chloride 95, bicarbonate 19, BUN 74, creatinine is 8.4. Calcium is 7.7. Phosphorus is 6.8. Magnesium is 2.6. AST is 2690, ALT is 1278. CPK is 192,500. CURRENT INPATIENT MEDICATIONS: Patient's medications were all reviewed by myself. Patient continues to be on Amlodipine 10 mg p.o. daily. He continues to be on hydralazine as well. No other significant change in the medication today as compared with yesterday. ASSESSMENT AND PLAN: 1. Acute oliguric renal failure secondary to rhabdomyolysis. Patient is dialysis dependent. He was dialyzed yesterday and the second session of dialysis is being done today. If needed, another session will be done tomorrow morning. 2. Hypertension with fluid overload. Patient got aggressive IV fluid hydration as part of the rhabdomyolysis treatment. However, he is oliguric now, IV fluids have been stopped. Volume status is being optimized for dialysis. Continue current dose of amlodipine and hydralazine. If needed, beta blockers can also be given because patient has tachycardia at this time. Avoid use of FILIPPO or ARB at this time. 3. Acute rhabdomyolysis. Patient still reports he needs his Physical Therapy, no need of aggressive IV fluid hydration since the patient is oliguric now. 4. Hypervolemic hyponatremia. The patient's sodium level is getting better with dialysis. 5. Normal anion gap metabolic acidosis. Bicarbonate level is getting better with hemodialysis now.
[2020-10-22 14:00] VITALS: BP 177/99
[2020-10-22] MEDS: DOCUSATE SODIUM 100MG CAPSULE PO SCH ×2 (14:06→21:03)
--- NOTE | 2020-10-22 15:43 | IPNPDOC ---
Date Seen The patient was seen on 10/22/20. Progress Note SUBJECTIVE: Patient was seen and examined at bedside this morning. Continues to express diffuse myalgia. Has made approximately 250 cc of clear urine overnight. I discussion with nephrology, Dr. Laughlin. Plan for insertion of a permacath and to receive dialysis this afternoon. Patient complains of abdominal fullness. Patient's creatinine kinase is trending down slowly this morning it is at 113,239 down from 196,700. Patient's BNP is elevated at 3800. Creatinine is significantly elevated at 8.14. OBJECTIVE PHYSICAL EXAMINATION: VITAL SIGNS: please see below General: NAD, comfortable HEENT: PERRLA, EOMI, sclerae clear Neck: supple, normal ROM, no JVD Respiratory: Crackles at lung bases, respiratory effort. CVS: RRR, normal S1, S2, no murmurs Abdo: soft, no masses, no hepatosplenomegaly, BS+, no rebound tenderness Extremities: 1+ edema pulses 2+ MSK: no joint deformities, normal ROM Neuro: no focal neuro deficits, moving all 4 extremities, CN2-12 intact. Strength 5/5 in all 4 extremities. No nystagmus. Psych: calm, cooperative, AAO x 3 LABORATORY DATA, IMAGING STUDIES, MICROBIOLOGY: Please see below. Liver US IMPRESSION: Findings most consistent with diffuse fatty infiltration of the liver. DVT prophylaxis ordered?: Yes ASSESSMENT AND PLAN: Mr. Dunn is a 50-year-old male with a past medical history of hypertension, sleep apnea on CPAP, chronic back pain, obesity, presented to the ER on 10/19 for generalized and diffuse muscle aches and pains with weakness and difficulty ambulating. Patient has been working hard physically as he is a [place] but lately has been very finding very difficult to walk. Patient was recently admitted on 10/13/2020 for diarrhea found to be secondary to Campylobacter. He completed 3-day course of azithromycin. On arrival patient found to have a creatinine phosphokinase level of over 200,000 as well as a creatinine of 4.5. Patient was admitted for treatment of rhabdomyolysis and acute kidney injury. He is being followed by nephrology. Despite IV fluid hydration his creatinine continues to trend upwards this morning 8.14. Plan is for insertion of a permacath and to start dialysis this afternoon. PROBLEMS: Rhabdomyolysis with ANDREA Fluids were DC'd. CK elevation persists. AST and ALT slowly trending presently 3617 100 respectively. Will obtain liver ultrasound - reviewed as above Nephrology is following, Dr. Qian Grecoacath was inserted by Dr. Lester on 10/21/2020. Patient has received 2 dialysis sessions third session planned for 10/22/20 Campylobacter diarrhea Resolved, completed 3 days course of azithromycin on prior admission Hypertension Continue amlodipine Ordered hydralazine 50 mg every 8 hours as needed for systolic blood pressure above 180 Patient has received 2 hemodialysis sessions thus far plan for an additional session on 10/23/2020 TASHA May use own CPAP Dispo: pending clinical improvement. VS, I&O, 24H, Fishbone Vital Signs/I&O Vital Signs Date Time Temp Pulse Resp B/P (MAP) Pulse Ox O2 Delivery O2 Flow Rate FiO2 10/22/20 14:00 98.7 104 20 177/99 (125) 94 Room Air 10/21/20 17:10 2.0 I&O- Last 24 Hours up to 6 AM 10/22/20 06:00 Intake Total 600 ml Output Total 2000 ml Balance -1400 ml Laboratory Data 24H LABS Laboratory Tests 2 10/22/20 05:49: Immature Granulocyte % (Auto) 1.7, Neutrophils (%) (Auto) 91.3H, Lymphocytes (%) (Auto) 3.0L, Monocytes (%) (Auto) 3.6, Eosinophils (%) (Auto) 0.1, Basophils (%) (Auto) 0.3, Neutrophils # (Auto) 14.1H, Lymphocytes # (Auto) 0.5L, Monocytes # (Auto) 0.6, Eosinophils # (Auto) 0.0, Basophils # (Auto) 0.0, Nucleated Red Blood Cells % (auto) 0.0, Anion Gap 14, Glomerular Filtration Rate 7.2L, Calcium Level 7.7L, Phosphorus Level 6.8H, Magnesium Level 2.6H, Total Bilirubin 0.5, Aspartate Amino Transf (AST/SGOT) 2690H, Alanine Aminotransferase (ALT/SGPT) 1278H, Alkaline Phosphatase 81, Total Creatine Kinase [id number], Total Protein 5.5L, Albumin 2.2L, Albumin/Globulin Ratio 0.7 CBC/BMP Laboratory Tests 10/22/20 05:49 JEFERSON MCCRAY MD Oct 22, 2020 15:43
[2020-10-22] MEDS: GABAPENTIN 300 MG CAP PO SCH (21:03)
[2020-10-22] MEDS: traMADol 50 MG TAB PO PRN (21:03)
[2020-10-22 22:00] VITALS: BP 159/89
[2020-10-23 06:00] VITALS: BP 160/92
[2020-10-23] MEDS: DOCUSATE SODIUM 100MG CAPSULE PO SCH ×2 (08:23→20:51)
[2020-10-23] MEDS: CALCIUM ACETATE 667MG GELCAP PO SCH ×3 (08:23→17:27)
[2020-10-23 09:56] LABS: BASO # 0.1 10^3/uL (0.0-0.2); BASO % 0.3 % (0.0-1.0); EOS # 0.2 10^3/uL (0.0-0.5); HEMATOCRIT 39.8 % (42.0-52.0); HEMOGLOBIN 13.6 g/dl (13.5-17.5); LYMPH # 0.8 10^3/uL (1.5-5.0); LYMPH % 5.2 % (24.0-44.0); MEAN CORPUSCULAR HEMOGLOBIN 30.2 pg (27.0-33.0); MEAN CORPUSCULAR HGB CONC 34.2 g/dl (32.0-36.5); MEAN CORPUSCULAR VOLUME 88.4 fl (80.0-96.0); MONO # 0.9 10^3/uL (0.0-0.8); MONO % 6.3 % (2.0-8.0); NEUTROPHILS # 12.4 10^3/uL (1.5-8.5); NEUTROPHILS % 85.5 % (36.0-66.0); PLATELET COUNT, AUTOMATED 322 10^3/uL (150-450); WHITE BLOOD COUNT 14.5 10^3/uL (4.0-10.0)
[2020-10-23 10:38] LABS: ALBUMIN 2.4 GM/DL (3.2-5.2); BILIRUBIN,TOTAL 0.4 MG/DL (0.2-1.0); CALCIUM LEVEL 8.6 MG/DL (8.5-10.1); CREATININE FOR GFR 6.45 MG/DL (0.70-1.30); GLOMERULAR FILTRATION RATE 9.8 (>60); MAGNESIUM LEVEL 2.7 MG/DL (1.8-2.4); POTASSIUM SERUM 4.2 MEQ/L (3.5-5.1); TOTAL PROTEIN 6.5 GM/DL (6.4-8.2)
--- NOTE | 2020-10-23 11:44 | IPN ---
PROGRESS NOTE DATE: 10/23/2020 SUBJECTIVE: The patient was seen and examined at the bedside today morning during hemodialysis procedure. He remains oliguric. He continues to complain of weakness of the muscles. He is unable to walk around. He is otherwise tolerating the hemodialysis procedure well. Today is the third session of dialysis being done. OBJECTIVE: VITAL SIGNS: Temperature is 99.2 degrees Fahrenheit, blood pressure is 160/92, pulse is 93, respiratory rate is 19, saturating 96% on room air. INTAKE AND OUTPUT: Urine output recorded as 350 ml since overnight. Ultrafiltration with hemodialysis was 3.5 liters yesterday. Weight on the bed scale is 112 kg. GENERAL: Patient is awake, alert and oriented x3, laying in bed getting hemodialysis done. HEAD AND NECK: Extraocular muscles intact. Pupils equally round and reactive to light. Mucous membranes are moist. Neck is supple. There is no JVD. CARDIOVASCULAR: S1 and S2, regular rate. No edema of the bilateral lower extremities. RESPIRATORY: Chest is clear to auscultation bilaterally. Bilateral equal air entry. No rales or rhonchi. ABDOMEN: Soft, positive bowel sounds, nontender. No organomegaly. MUSCULOSKELETAL: No clubbing or cyanosis, pulses are 2+. 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 Power is 5/5 in all extremities. LABORATORY DATA: CBC showed a WBC of 14.5, hemoglobin is 13.6, platelets are 322,000. BMP showed a sodium of 133, potassium 4.2, chloride 101, bicarbonate 23, BUN 61, creatinine is 6.4. Magnesium is 2.7. AST is 1079. CURRENT INPATIENT MEDICATIONS: Patient's medications were all reviewed by myself. There is no significant change in the medications today as compared with yesterday. ASSESSMENT AND PLAN: 1. Acute oliguric renal failure. Patient remains dialysis dependent. Today is the third session of dialysis. I will continue to monitor for renal recovery. Next dialysis session if needed will be done on Tuesday. 2. Acute rhabdomyolysis. The patient still complains of weakness. He is going to have Physical Therapy. No need of aggressive IV fluid hydration since the patient is oliguric. 3. Hypertension, blood pressure is controlled with amlodipine, optimization of fluid status and p.r.n. hydralazine dosage. 4. Hyperphosphatemia, patient is getting PhosLo with meals and phosphorus level is also expected to improve with hemodialysis.
[2020-10-23 14:30] VITALS: BP 175/95
--- NOTE | 2020-10-23 17:01 | IPNPDOC ---
Date Seen The patient was seen on 10/23/20. Progress Note SUBJECTIVE: Patient was seen and examined at bedside this morning. Continues to express diffuse myalgia. Has weakness in the right lower extremity and left upper extremity. Denies chest pain shortness of breath palpitations nausea vomiting or diarrhea. OBJECTIVE PHYSICAL EXAMINATION: VITAL SIGNS: please see below General: NAD, comfortable HEENT: PERRLA, EOMI, sclerae clear Neck: supple, normal ROM, no JVD Respiratory: Crackles at lung bases, respiratory effort. CVS: RRR, normal S1, S2, no murmurs Abdo: soft, no masses, no hepatosplenomegaly, BS+, no rebound tenderness Extremities: 1+ edema pulses 2+ MSK: no joint deformities, normal ROM Neuro: no focal neuro deficits, moving all 4 extremities, CN2-12 intact. Strength 3 out of 5 in the right lower extremity and 4 out of 5 in the left u pper extremity. 5 out of 5 strength in left lower and right upper extremities. no nystagmus. Psych: calm, cooperative, AAO x 3 LABORATORY DATA, IMAGING STUDIES, MICROBIOLOGY: Please see below. Liver US IMPRESSION: Findings most consistent with diffuse fatty infiltration of the liver. DVT prophylaxis ordered?: Yes ASSESSMENT AND PLAN: Mr. Dunn is a 50-year-old male with a past medical hist ory of hypertension, sleep apnea on CPAP, chronic back pain, obesity, presented to the ER on 10/19 for generalized and diffuse muscle aches and pains with weakness and difficulty ambulating. Patient has been working hard physically as he is a [place] but lately has been very finding very difficult to walk. Patient was recently admitted on 10/13/2020 for diarrhea found to be secondary to Campylobacter. He completed 3-day course of azithromycin. On arrival patient found to have a creatinine phosphokinase level of over 200,000 as well as a creatinine of 4.5. Patient was admitted for treatment of rhabdomyolysis and acute kidney injury. He is being followed by nephrology. Plan is for insertion of a permacath and to start dialysis this afternoon. PROBLEMS: Rhabdomyolysis with ANDREA, possibly 2/2 recent campylobacter infection Fluids were DC'd. CK elevation persists. AST and ALT slowly trending down Will obtain liver ultrasound - reviewed as above Nephrology is following, Dr. Laughlin Permacath was inserted by Dr. Lester on 10/21/2020. Patient has received 2 dialysis sessions third session planned for 10/22/20 Campylobacter diarrhea Resolved, completed 3 days course of azithromycin on prior admission Hypertension Continue amlodipine Ordered hydralazine 50 mg every 8 hours as needed for systolic blood pressure above 180 Patient has received 3 hemodialysis sessions thus far [facility] May use own CPAP Dispo: pending clinical improvement. VS, I&O, 24H, Fishbone Vital Signs/I&O Vital Signs Date Time Temp Pulse Resp B/P (MAP) Pulse Ox O2 Delivery O2 Flow Rate FiO2 10/23/20 14:30 98.6 93 18 175/95 (121) 97 10/23/20 06:00 Room Air 10/21/20 17:10 2.0 I&O- Last 24 Hours up to 6 AM 10/23/20 06:00 Intake Total 1530 ml Output Total 4200 ml Balance -2670 ml Laboratory Data 24H LABS Laboratory Tests 2 10/23/20 09:45: Immature Granulocyte % (Auto) 1.7, Neutrophils (%) (Auto) 85.5H, Lymphocytes (%) (Auto) 5.2L, Monocytes (%) (Auto) 6.3, Eosinophils (%) (Auto) 1.0, Basophils (%) (Auto) 0.3, Neutrophils # (Auto) 12.4H, Lymphocytes # (Auto) 0.8L, Monocytes # (Auto) 0.9H, Eosinophils # (Auto) 0.2, Basophils # (Auto) 0.1, Nucleated Red Blood Cells % (auto) 0.0, Anion Gap 9, Glomerular Filtration Rate 9.8L, Calcium Level 8.6, Magnesium Level 2.7H, Total Bilirubin 0.4, Aspartate Amino Transf (AST/SGOT) 1079H, Alanine Aminotransferase (ALT/SGPT) 843H, Alkaline Phosphatase 97, Total Protein 6.5, Albumin 2.4L, Albumin/Globulin Ratio 0.6 CBC/BMP Laboratory Tests 10/23/20 09:45 JEFERSON MCCRAY MD Oct 23, 2020 17:01
[2020-10-23 20:27] VITALS: BP 177/94
[2020-10-23 20:43] VITALS: BP 182/94
[2020-10-23] MEDS: **hydrALAZINE** 50 MG TAB PO PRN (20:50)
[2020-10-23] MEDS: MIRALAX *UNIT DOSE* 17GM PACKET PO PRN (20:50)
[2020-10-23] MEDS: GABAPENTIN 300 MG CAP PO SCH (20:51)
[2020-10-23] MEDS: traMADol 50 MG TAB PO PRN (20:51)
[2020-10-24 05:43] VITALS: BP 162/84
[2020-10-24 08:14] LABS: BASO # 0.1 10^3/uL (0.0-0.2); BASO % 0.6 % (0.0-1.0); EOS # 0.2 10^3/uL (0.0-0.5); EOS % 1.7 % (0.0-3.0); HEMATOCRIT 38.4 % (42.0-52.0); HEMOGLOBIN 13.1 g/dl (13.5-17.5); LYMPH # 0.9 10^3/uL (1.5-5.0); LYMPH % 6.9 % (24.0-44.0); MEAN CORPUSCULAR HEMOGLOBIN 30.3 pg (27.0-33.0); MEAN CORPUSCULAR HGB CONC 34.1 g/dl (32.0-36.5); MEAN CORPUSCULAR VOLUME 88.9 fl (80.0-96.0); MONO % 7.3 % (2.0-8.0); NEUTROPHILS # 10.8 10^3/uL (1.5-8.5); NEUTROPHILS % 81.3 % (36.0-66.0); PLATELET COUNT, AUTOMATED 326 10^3/uL (150-450); RED BLOOD COUNT 4.32 10^6/uL (4.30-6.10); WHITE BLOOD COUNT 13.3 10^3/uL (4.0-10.0)
[2020-10-24] MEDS: DOCUSATE SODIUM 100MG CAPSULE PO SCH ×2 (08:27→21:06)
[2020-10-24] MEDS: CALCIUM ACETATE 667MG GELCAP PO SCH ×3 (08:27→18:07)
[2020-10-24 08:52] LABS: ALBUMIN 2.4 GM/DL (3.2-5.2); BILIRUBIN,TOTAL 0.5 MG/DL (0.2-1.0); CALCIUM LEVEL 8.9 MG/DL (8.5-10.1); CREATININE FOR GFR 7.46 MG/DL (0.70-1.30); GLOMERULAR FILTRATION RATE 8.3 (>60); MAGNESIUM LEVEL 2.8 MG/DL (1.8-2.4); POTASSIUM SERUM 5.6 MEQ/L (3.5-5.1); TOTAL PROTEIN 5.8 GM/DL (6.4-8.2)
[2020-10-24] MEDS ORDERED: SOD POLYSTYRENE SULFONATE SUSP 15 GM/60 ML UD PO ONE (12:00)
[2020-10-24 14:30] VITALS: BP 159/92
--- NOTE | 2020-10-24 14:49 | IPNPDOC ---
Date Seen The patient was seen on 10/24/20. Progress Note SUBJECTIVE: Patient was seen and examined at bedside this morning. Patient is clearly concerned about his weakness and persistent renal failure. Patient has weakness in the left arm and the right leg. Ongoing hemodialysis. CPK remains elevated. OBJECTIVE PHYSICAL EXAMINATION: VITAL SIGNS: please see below General: NAD, comfortable HEENT: PERRLA, EOMI, sclerae clear Neck: supple, normal ROM, no JVD Respiratory: Crackles at lung bases, respiratory effort. CVS: RRR, normal S1, S2, no murmurs Abdo: soft, no masses, no hepatosplenomegaly, BS+, no rebound tenderness Extremities: 1+ edema pulses 2+ MSK: no joint deformities, normal ROM Neuro: no focal neuro deficits, moving all 4 extremities, CN2-12 intact..No nystagmus. Diminished strength in the right leg and left arm. Preserved strength in the left leg and right arm. Psych: calm, cooperative, AAO x 3 LABORATORY DATA, IMAGING STUDIES, MICROBIOLOGY: Please see below. Liver US IMPRESSION: Findings most consistent with diffuse fatty infiltration of the liver. DVT prophylaxis ordered?: Yes ASSESSMENT AND PLAN: Mr. Dunn is a 50-year-old male with a past medical history of hypertension, sleep apnea on CPAP, chronic back pain, obesity, presented to the ER on 10/19 for generalized and diffuse muscle aches and pains with weakness and difficulty ambulating. Patient has been working hard physically as he is a [place] but lately has been very finding very difficult to walk. Patient was recently admitted on 10/13/2020 for diarrhea found to be secondary to Campylobacter. He completed 3-day course of azithromycin. On arrival patient found to have a creatinine phosphokinase level of over 200,000 as well as a creatinine of 4.5. Patient was admitted for treatment of rhabdomyolysis and acute kidney injury. He is being followed by nephrology. Plan is for insertion of a permacath and to start dialysis this afternoon. PROBLEMS: Rhabdomyolysis with ANDREA, possibly 2/2 recent campylobacter infection Fluids were DC'd. CK elevation persists. AST and ALT slowly trending down CPK trended down to 5700 today. Will obtain liver ultrasound - reviewed as above Nephrology is following, Dr. Laughlin Permacath was inserted by Dr. Lester on 10/21/2020. Receiving hemodialysis per nephrology Muscle weakness, asymmetric Possibly 2/2 rhabdo d/w Dr. Eden, placed neuro consult to evaluate for focal weakness in the right arm and left leg. Patient is otherwise neurologically intact. reduced dose of gabapentin to 100 mg qhs. Campylobacter diarrhea Resolved, completed 3 days course of azithromycin on prior admission Hypertension Continue amlodipine Ordered hydralazine 50 mg every 8 hours as needed for systolic blood pressure above 180 Patient has received 3 hemodialysis sessions thus far [facility] May use own CPAP Dispo: pending clinical improvement. Evaluated by PT. Unable to stand with 2 assist. Will likely require rehab. VS, I&O, 24H, Fishbone Vital Signs/I&O Vital Signs Date Time Temp Pulse Resp B/P (MAP) Pulse Ox O2 Delivery O2 Flow Rate FiO2 10/24/20 08:27 87 162/84 10/24/20 05:43 98.3 16 97 Room Air 10/21/20 17:10 2.0 I&O- Last 24 Hours up to 6 AM 10/24/20 06:00 Intake Total 1320 ml Output Total 3040 ml Balance -1720 ml Laboratory Data 24H LABS Laboratory Tests 2 10/24/20 07:26: Immature Granulocyte % (Auto) 2.2, Neutrophils (%) (Auto) 81.3H, Lymphocytes (%) (Auto) 6.9L, Monocytes (%) (Auto) 7.3, Eosinophils (%) (Auto) 1.7, Basophils (%) (Auto) 0.6, Neutrophils # (Auto) 10.8H, Lymphocytes # (Auto) 0.9L, Monocytes # (Auto) 1.0H, Eosinophils # (Auto) 0.2, Basophils # (Auto) 0.1, Nucleated Red Blood Cells % (auto) 0.0, Anion Gap 13, Glomerular Filtration Rate 8.3L, Calcium Level 8.9, Magnesium Level 2.8H, Total Bilirubin 0.5, Aspartate Amino Transf (AST/SGOT) 624H, Alanine Aminotransferase (ALT/SGPT) 673H, Alkaline Phosphatase 122H, Total Creatine Kinase 5789H, Total Protein 5.8L, Albumin 2.4L, Albumin/Globulin Ratio 0.7 CBC/BMP Laboratory Tests 10/24/20 07:26 JEFERSON MCCRAY MD Oct 24, 2020 14:49
[2020-10-24] MEDS: MIRALAX *UNIT DOSE* 17GM PACKET PO PRN (18:07)
[2020-10-24] MEDS ORDERED: MOM 30ML SUSPENSION UDC PO PRN (20:05)
[2020-10-24 21:06] VITALS: BP 184/92
[2020-10-24] MEDS: **hydrALAZINE** 50 MG TAB PO PRN (21:07)
[2020-10-24] MEDS: GABAPENTIN 100 MG CAP PO SCH (21:07)
[2020-10-24] MEDS: traMADol 50 MG TAB PO PRN (21:07)
[2020-10-25 06:19] VITALS: BP 164/94
[2020-10-25 07:30] LABS: BASO # 0.1 10^3/uL (0.0-0.2); BASO % 0.5 % (0.0-1.0); EOS # 0.3 10^3/uL (0.0-0.5); EOS % 2.1 % (0.0-3.0); HEMATOCRIT 38.4 % (42.0-52.0); HEMOGLOBIN 13.1 g/dl (13.5-17.5); LYMPH # 0.8 10^3/uL (1.5-5.0); LYMPH % 6.2 % (24.0-44.0); MEAN CORPUSCULAR HEMOGLOBIN 30.2 pg (27.0-33.0); MEAN CORPUSCULAR HGB CONC 34.1 g/dl (32.0-36.5); MEAN CORPUSCULAR VOLUME 88.5 fl (80.0-96.0); MONO # 1.1 10^3/uL (0.0-0.8); MONO % 8.3 % (2.0-8.0); NEUTROPHILS # 10.6 10^3/uL (1.5-8.5); NEUTROPHILS % 80.7 % (36.0-66.0); PLATELET COUNT, AUTOMATED 353 10^3/uL (150-450); RED BLOOD COUNT 4.34 10^6/uL (4.30-6.10); WHITE BLOOD COUNT 13.1 10^3/uL (4.0-10.0)
[2020-10-25 07:59] LABS: ALBUMIN 2.5 GM/DL (3.2-5.2); BILIRUBIN,TOTAL 0.5 MG/DL (0.2-1.0); CALCIUM LEVEL 8.5 MG/DL (8.5-10.1); CREATININE FOR GFR 9.26 MG/DL (0.70-1.30); GLOMERULAR FILTRATION RATE 6.5 (>60); MAGNESIUM LEVEL 3.1 MG/DL (1.8-2.4); POTASSIUM SERUM 5.4 MEQ/L (3.5-5.1); TOTAL PROTEIN 5.8 GM/DL (6.4-8.2)
[2020-10-25] MEDS: CALCIUM ACETATE 667MG GELCAP PO SCH ×3 (08:00→18:11)
--- NOTE | 2020-10-25 09:37 | IPNPDOC ---
Date Seen The patient was seen on 10/25/20. Progress Note SUBJECTIVE: Patient was seen and examined at bedside this morning. Patient continues to have muscular weakness, and has difficulty ambulating. He states his pain is improving. CPK and liver enzymes are trending down. Denies chest pain, palpitations, SOB. OBJECTIVE PHYSICAL EXAMINATION: VITAL SIGNS: please see below General: NAD, comfortable HEENT: PERRLA, EOMI, sclerae clear Neck: supple, normal ROM, no JVD Respiratory: Crackles at lung bases, respiratory effort. CVS: RRR, normal S1, S2, no murmurs Abdo: soft, no masses, no hepatosplenomegaly, BS+, no rebound tenderness Extremities: 1+ edema pulses 2+ MSK: no joint deformities, normal ROM Neuro: no focal neuro deficits, moving all 4 extremities, CN2-12 intact. Strenght 3/5 RLE. 4/5 in LLE. 4/4. 5/5 in RUE. No nystagmus. Psych: calm, cooperative, AAO x 3 LABORATORY DATA, IMAGING STUDIES, MICROBIOLOGY: Please see below. Liver US IMPRESSION: Findings most consistent with diffuse fatty infiltration of the liver. DVT prophylaxis ordered?: Yes ASSESSMENT AND PLAN: Mr. Dunn is a 50-year-old male with a past medical history of hypertension, sleep apnea on CPAP, chronic back pain, obesity, presented to the ER on 10/19 for generalized and diffuse muscle aches and pains with weakness and difficulty ambulating. Patient has been working hard physically as he is a [place] but lately has been very finding very difficult to walk. Patient was recently admitted on 10/13/2020 for diarrhea found to be secondary to Campylobacter. He completed 3-day course of azithromycin. On arrival patient found to have a creatinine phosphokinase level of over 200,000 as well as a creatinine of 4.5. Patient was admitted for treatment of rhabdo myolysis and acute kidney injury. He is being followed by nephrology. Patient receiving hemodialysis per nephrology. Permacath was placed by vascular. Patient evaluated by neurology does not believe his focal weakness to be related to a neurological cause. PROBLEMS: Rhabdomyolysis with ANDREA, possibly 2/2 recent campylobacter infection Fluids were DC'd. AST and ALT slowly trending down CPK trending down Will obtain liver ultrasound - reviewed as above Nephrology is following, d/w Dr. Mcnulty this morning. Permacath was inserted by Dr. Lester on 10/21/2020. Receiving hemodialysis per nephrology Muscle weakness, asymmetric Possibly 2/2 rhabdo d/w Dr. Eden, placed neuro consult reduced dose of gabapentin to 100 mg qhs. D/w Dr. Eden, does not believe there to a neurological cause for weakness. Gu illaine Frost can cause slight elevation of CPK, but not to these extemes. Campylobacter diarrhea Resolved, completed 3 days course of azithromycin on prior admission Hypertension Continue amlodipine Ordered hydralazine 50 mg every 8 hours as needed for systolic blood pressure above 180 Patient has received 3 hemodialysis sessions thus far [facility] May use own CPAP Dispo: pending clinical improvement. Evaluated by PT. Unable to stand with 2 assist. Will likely require rehab. Placed ARU evaluation on 10/25/20. VS, I&O, 24H, Fishbone Vital Signs/I&O Vital Signs Date Time Temp Pulse Resp B/P (MAP) Pulse Ox O2 Delivery O2 Flow Rate FiO2 10/25/20 06:19 97.9 89 20 164/94 (117) 97 Room Air 10/21/20 17:10 2.0 I&O- Last 24 Hours up to 6 AM 10/25/20 06:00 Intake Total 120 ml Output Total 325 ml Balance -205 ml Laboratory Data 24H LABS Laboratory Tests 2 10/25/20 06:19: Immature Granulocyte % (Auto) 2.2, Neutrophils (%) (Auto) 80.7H, Lymphocytes (%) (Auto) 6.2L, Monocytes (%) (Auto) 8.3H, Eosinophils (%) (Auto) 2.1, Basophils (%) (Auto) 0.5, Neutrophils # (Auto) 10.6H, Lymphocytes # (Auto) 0.8L, Monocytes # (Auto) 1.1H, Eosinophils # (Auto) 0.3, Basophils # (Auto) 0.1, Nucleated Red Blood Cells % (auto) 0.0, Anion Gap 12, Glomerular Filtration Rate 6.5L, Calcium Level 8.5, Magnesium Level 3.1H, Total Bilirubin 0.5, Aspartate Amino Transf (AST/SGOT) 402H, Alanine Aminotransferase (ALT/SGPT) 521H, Alkaline Phosphatase 126H, Total Creatine Kinase 3526H, Total Protein 5.8L, Albumin 2.5L, Albumin/Globulin Ratio 0.8 CBC/BMP Laboratory Tests 10/25/20 06:19 JEFERSON MCCRAY MD Oct 25, 2020 09:37
--- NOTE | 2020-10-25 11:24 | IPNPDOC ---
Text Note Date of Service The patient was seen on 10/24/20. NOTE Subjective: The patient was seen in his room today office coordinator. Patient sta stevan his stamina is getting much better when he was able to get up with the help of assistance and sit at the bedside for a few seconds. Patient states he is working with physical therapy and getting stronger day by day however he understands it is going to be a long process and still is unable to walk. He is oliguric but says he is drinking more now. The color of the urine is still darker(light brown) with no sediments. No overnight events reported by the nurse. OBJECTIVE: GENERAL: Patient is awake alert oriented x3, laying in bed under no acute distress HEENT: Atraumatic, normocephalic, EOMI, PERRLA, moist mucous membranes, no scleral icterus or pallor Cardiovascular: Heart sounds normal, regular rate rhythm. No murmurs rubs or gallops heard. PULMONARY: Chest is clear to auscultation bilaterally, no wheezes or rhonchi or crackles heard. ABDOMEN: Obese, nontender, nondistended, bowel sounds normal. No organomegaly. NEURO: Patient is generally weak muscle weakness 2/5 secondary to weakness, sensations intact ASSESSMENT AND PLAN: 1 acute oliguric renal failure secondary to acute rhabdomyolysis: Patient's numbers are getting better today her his CPK level is down in 5000' s. Creatinine is stable. Continues to be hemodialysis dependent. Weakness persists. Continues to have physical therapy. However reports some improvement. Patient will receive his dialysis on Tuesday. Good oral intake. 2. Hypertension: -Blood pressure levels remain higher however hemodialysis should help with that Continue blood pressure medications. Including amlodipine and as needed hydralazine. 3. Hyperphosphatemia: -Patient continues to be on PhosLo with meals. VS,Fishbone, I+O VS, Fishbone, I+O Laboratory Tests 10/25/20 06:19 Vital Signs Date Time Temp Pulse Resp B/P (MAP) Pulse Ox O2 Delivery O2 Flow Rate FiO2 10/25/20 06:19 97.9 89 20 164/94 (117) 97 Room Air 10/21/20 17:10 2.0 I&O- Last 24 Hours up to 6 AM 10/25/20 06:00 Intake Total 1560 ml Output Total 650 ml Balance 910 ml GME ATTESTATION GME ATTESTATION My faculty preceptor for this patient encounter was physically present during the encounter and was fully available. All aspects of the patient interview, examination, medical decision making process, and medical care plan development were reviewed and approved by the faculty preceptor. The faculty preceptor is aware and concurs with the plan as stated in the body of this note and will attest to such by his/her cosignature. Evan Cortes MD Oct 25, 2020 11:13
--- NOTE | 2020-10-25 12:49 | IPN ---
PROGRESS NOTE DATE: 10/25/2020 Mr. Dunn is seen this morning during hemodialysis. He has oliguric acute renal failure related to severe rhabdomyolysis. He is still very weak, particularly in his lower extremities, and unable to get up. He reports that his hands and arms are moving much better today. He denies any nausea, vomiting, dyspnea, or chest pain. PHYSICAL EXAMINATION: Temperature 97.9 degrees Fahrenheit, heart rate 88 per minute, respiratory rate 20 per minute, blood pressure 164/94 mmHg, and oxygen saturation 97% on room air. Head is atraumatic. Neck supple, and jugular venous distention (JVD) difficult to be assessed. Hemodialysis catheter in right internal jugular vein is noted. His heart sound are regular and lung clear to auscultation. Abdomen soft and nontender, and bowel sounds are normal. Extremities without any cyanosis or clubbing. Peripheral edema is noticed. Neurologically he is awake, alert, and oriented times three. Today's labs show WBC count 13.1, hemoglobin 13,1, and hematocrit 38.4. Sodium 131, potassium 5.4, CO2 of 22, BUN 109, and creatinine 9.26. Calcium 8.5 and magnesium 3.1. AST is down to 402, ALT 521. CPK is down to 3526 and albumin 2.5. PROBLEMS: 1. Oliguric acute renal failure. This is related to rhabdomyolysis. Patient is currently dialysis dependent. We anticipate renal recovery in 1-2 weeks. In the meantime, we will continue with dialysis. 2. Hyponatremia. This is related to acute renal failure and hypervolemia. This will be corrected with dialysis, and no other intervention is needed. 3. Hyperkalemia. Mild hyperkalemia is noted, related to acute renal failure. Patient is being dialyzed with 2.0 mEq potassium bath, and his hyperkalemia will also correct. 4. Rhabdomyolysis. Patient had severe rhabdomyolysis with CPK level greater than 200,000. His CPK level is now down to 3526 today. His muscle strength is now gradually improving. 5. Hypertension. Blood pressure is slightly high; however, patient is also hypervolemic. We are removing 2 liters of fluid today, and we hope that this will help to control his blood pressure. I will recommend to continue with current antihypertensive medications.
[2020-10-25 14:30] VITALS: BP 185/103
[2020-10-25] MEDS: **hydrALAZINE** 50 MG TAB PO PRN (15:00)
[2020-10-25] MEDS: DOCUSATE SODIUM 100MG CAPSULE PO SCH ×2 (15:02→20:16)
[2020-10-25 17:21] VITALS: BP 154/78
[2020-10-25] MEDS: GABAPENTIN 100 MG CAP PO SCH (20:16)
[2020-10-25] MEDS: traMADol 50 MG TAB PO PRN (20:20)
[2020-10-25] MEDS ORDERED: cloNIDine 0.2 MG TAB PO ONE (20:45)
[2020-10-25] MEDS ORDERED: **hydrALAZINE** 50 MG TAB PO ONE (20:45)
[2020-10-25] MEDS ORDERED: cloNIDine 0.1MG TABLET PO ONE (20:55)
[2020-10-25 22:00] VITALS: BP 170/80
[2020-10-26] VITALS: BP 160/80
[2020-10-26 05:40] LABS: BASO # 0.1 10^3/uL (0.0-0.2); BASO % 0.7 % (0.0-1.0); EOS # 0.3 10^3/uL (0.0-0.5); EOS % 2.3 % (0.0-3.0); HEMATOCRIT 38.8 % (42.0-52.0); HEMOGLOBIN 13.1 g/dl (13.5-17.5); LYMPH # 0.9 10^3/uL (1.5-5.0); LYMPH % 7.8 % (24.0-44.0); MEAN CORPUSCULAR HEMOGLOBIN 30.3 pg (27.0-33.0); MEAN CORPUSCULAR HGB CONC 33.8 g/dl (32.0-36.5); MEAN CORPUSCULAR VOLUME 89.8 fl (80.0-96.0); MONO # 1.1 10^3/uL (0.0-0.8); MONO % 9.5 % (2.0-8.0); NEUTROPHILS # 9.2 10^3/uL (1.5-8.5); NEUTROPHILS % 77.8 % (36.0-66.0); PLATELET COUNT, AUTOMATED 342 10^3/uL (150-450); RED BLOOD COUNT 4.32 10^6/uL (4.30-6.10); WHITE BLOOD COUNT 11.8 10^3/uL (4.0-10.0)
[2020-10-26 06:00] VITALS: BP 162/80
[2020-10-26 06:27] LABS: ALBUMIN 2.5 GM/DL (3.2-5.2); BILIRUBIN,TOTAL 0.4 MG/DL (0.2-1.0); CALCIUM LEVEL 8.4 MG/DL (8.5-10.1); POTASSIUM SERUM 5.6 MEQ/L (3.5-5.1); TOTAL PROTEIN 5.8 GM/DL (6.4-8.2)
--- NOTE | 2020-10-26 07:35 | REPVR ---
PROCEDURE INFORMATION: Exam: US Duplex Artery and Vein of the Abdominal and/or Reproductive Organs, Complete Kidneys Exam date and time: 10/26/2020 6:57 AM Age: 50 years old Clinical indication: HTN, acute renal insufficiency; Please include renal artery dopplers TECHNIQUE: Imaging protocol: Real-time duplex ultrasound scan of the arterial and venous flow with color Doppler flow and spectral waveform analysis with image documentation. Complete duplex exam focused on the kidneys. Duplex images required to evaluate vascular conditions. COMPARISON: LIVER US 10/21/2020 2:35 PM FINDINGS: Right kidney: Right kidney measures 14.2 cm. Mild increased echogenicity. No hydronephrosis. Right renal artery: Normal duplex of the renal artery. Duplex waveforms are within normal limits. No hemodynamically significant stenosis. Peak systolic velocity is 54.4 cm/s. Right interlobar/arcuate arteries: Resistive index in the upper pole is 0.80. Midpole is 0.95. Lower pole is 0.82. Right renal vein: Not interrogated. Left kidney: Left kidney measures 14.0 cm. Mild increased echogenicity. No hydronephrosis. Left renal artery: Normal duplex of the renal artery. Duplex waveforms are within normal limits. No hemodynamically significant stenosis. Peak systolic velocity is 60.6 cm/s. Left interlobar/arcuate arteries: Resistive index in the upper pole is 0.88. Midpole is 0.77. Lower pole is 0.87. Left renal vein: Not interrogated. Bladder: Leo in the bladder. Bladder is decompressed. IMPRESSION: 1. No hemodynamically significant stenosis. 2. Mildly echogenic kidneys. 3. Elevated resistive indices in the kidneys bilaterally. Consistent with renal disease of unknown specific etiology. 4. Renal veins were not interrogated. Electronically signed by: Ismael Lindsey On 10/26/2020 07:34:51 AM
[2020-10-26] MEDS: DOCUSATE SODIUM 100MG CAPSULE PO SCH ×2 (08:36→20:43)
[2020-10-26] MEDS: CALCIUM ACETATE 667MG GELCAP PO SCH ×3 (08:36→17:02)
[2020-10-26] MEDS ORDERED: FUROSEMIDE 100MG/10ML VIAL (J1940) IV ONE (09:45)
--- NOTE | 2020-10-26 11:06 | CR ---
CONSULTATION DATE: 10/24/2020 REFERRING PHYSICIAN: Miguelito Hi MD REASON FOR CONSULTATION: Muscle weakness. HISTORY OF PRESENT ILLNESS: The patient is a 50-year-old man with a history of hypertension, sleep apnea, chronic neck and back pain, obesity who presented to [facility] with diarrhea, abdominal pain, bloating two weeks ago on Tuesday. He developed his symptoms after he ate fermented/pickled broccoli which was homemade. He was diagnosed with Campylobacter jejuni infection. He was prescribed Zithromax. A week after he developed diarrhea, he developed muscle aches and pain, weakness and difficulty ambulating. He waited for a day or two and came to [facility] on October 19, 2020. He described his symptoms as if he was 81 years old when he was walking. His muscle pain was 8/10 in intensity, dull, aching throughout his back, his arms, legs and hands. He denies any numbness, tingling of hands and feet, problems controlling his bowel or bladder, dysphagia, dysarthria, diplopia, shortness of breath, falls, loss of consciousness. His CPK was above 200,000, AST was above 5000 and ALT above 1800. His creatinine on admission was 4.5. He was admitted to [facility] with rhabdomyolysis and acute renal injury. He was given intravenous fluids. His renal function further declined and he had hemodialysis three times. His muscle enzyme persistently remained high except in the last 24 hours that it has started declining. 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 HOME MEDICATIONS: 1. Amlodipine 10 mg p.o. daily. 2. Folic acid/vitamin B complex. 3. Gabapentin 600 mg p.o. t.i.d. 4. Hydrochlorothiazide 25 mg p.o. daily. 5. Multivitamin one tablet p.o. daily. 6. Chondroitin and glucosamine. ALLERGIES: None. PAST SURGICAL HISTORY: Right shoulder, left shoulder surgeries, right ulnar nerve transposition. FAMILY HISTORY: Father had prostate cancer. Parents have hypertension. SOCIAL HISTORY: He vapes. He denies illicit drugs. He rarely drinks alcohol. He is a marino. REVIEW OF SYSTEMS: All systems were reviewed and found to be noncontributory except as mentioned in history of present illness. PHYSICAL EXAMINATION: VITAL SIGNS: Temperature 98.6, pulse 80, respiratory rate 16, blood pressure 147/83, 96% saturation on room air. HEART: Regular rate and rhythm. LUNGS: Clear to auscultation. ABDOMEN: Soft, nontender, nondistended. EXTREMITIES: No pedal edema. MUSCULOSKELETAL: No abnormalities. SKIN: No rash. NEUROLOGICAL: No signs of meningeal irritation. The patient is awake, alert, oriented to place, person and time. Normal speech, comprehension and repetition. Extraocular muscles are intact. No facial weakness. Tongue and uvula are midline. Strength in his bilateral iliopsoas, biceps, triceps is 4+/5 and strength in his finger extensors, APB, ADM is 5-/5. Strength in his bilateral iliopsoas is 3/5, quadriceps and hamstrings 4+/5. Foot dorsiflexion and plantarflexion is 5-/5. Deep tendon reflexes are 2+ throughout. Normal sensation to pin prick, cold, vibration in arms and legs. Gait is unsteady and requiring assistance due to significant weakness of arms and legs. DIAGNOSTIC STUDIES: WBC is 19.3, hematocrit 45.9, platelet count 349, creatinine 4.3, sodium 132. Sodium decreased to 128 on October 22, 2020. Creatinine aftab to 8.47 and the patient has been getting hemodialysis. GFR was 7.2. His CK on admission was 202,400 which decreased to 5789 today. His AST was 5624 which decreased to 624 and ALT was 1899 and reduced to 673. His COVID, hepatitis B and C were unremarkable. ASSESSMENT: 1. Severe rhabdomyolysis causing acute renal failure due to mild myoglobinuria. 2. Guillain-Gill syndrome would not present with severe rhabdomyolysis, very high CK in the absence of new sensory symptoms. . PLAN: 1. Continue supportive care. His CK, AST, ALT are all from his muscles and they are declining now. 2. Start physical and occupational therapy and consider inpatient rehabilitation. 3. Follow with our office in two weeks after hospital discharge. Patient discontinuing hemodialysis per nephrology for acute renal failure.
--- NOTE | 2020-10-26 11:35 | ECHO ---
ECHOCARDIOGRAM DATE OF PROCEDURE: 10/22/2020 Age: 50 Gender: Male Height: 5 feet 9 inches Weight: 242 pounds REFERRING PROVIDER: Miguelito Hi M.D. PATIENT LOCATION: Room 5137. REASON FOR THE STUDY: Edema. MEASUREMENTS: 2D Measurements: IVS 1.1 cm LVPW 1.1 cm LV 4.5 cm Aortic root 3.5 cm LA 3.6 cm Doppler Measurements: Peak velocity across the aortic valve 1.75 m/sec Peak velocity across the LVOT 1.15 m/sec Peak gradient across the aortic valve 12.25 mmHg Mean gradient across the aortic valve 7 mmHg Mitral E 1.1 Mitral A 0.9 with a ratio of 1.2 2D COMMENTS: 1. Normal left ventricular size, wall thickness and a normal global left ventricular systolic function with a hyperdynamic left ventricle. The estimated left ventricular systolic ejection fraction is 65-70%. 2. Normal left atrium. Normal right atrium and right ventricle. 3. The atrial septum appeared to be normal without evidence of defect or shunt. 4. Normal aortic root. 5. No pericardial effusion seen. 6. The aortic valve, mitral valve and tricuspid valve appear to be normal. The pulmonic valve also appeared to be normal in limited views. The proximal pulmonary artery branches were not well visualized. 7. The inferior vena cava was not well visualized. DOPPLER: No significant valvular abnormalities detected. Assessment of the left ventricular diastolic function appeared to be normal. IMPRESSION: 1. Normal global left ventricular systolic function with a hyperdynamic left ventricle. Assessment of the left ventricular diastolic function appeared to be normal. 2. No significant valvular heart disease detected. 3. Patient during the test was mildly tachycardic with a heartbeat that varied between 100 beats per minute - 110 beats per minute. MTDD
--- NOTE | 2020-10-26 11:47 | IPNPDOC ---
Date Seen The patient was seen on 10/26/20. Progress Note SUBJECTIVE: Patient was seen and examined at bedside this morning. Patient continues to have muscular weakness, and has difficulty ambulating. He states his pain is improving. CPK and liver enzymes are trending down. Denies chest pain, palpitations, SOB. OBJECTIVE PHYSICAL EXAMINATION: VITAL SIGNS: please see below General: NAD, comfortable HEENT: PERRLA, EOMI, sclerae clear Neck: supple, normal ROM, no JVD Respiratory: Crackles at lung bases, respiratory effort. CVS: RRR, normal S1, S2, no murmurs Abdo: soft, no masses, no hepatosplenomegaly, BS+, no rebound tenderness Extremities: 1+ edema pulses 2+ MSK: no joint deformities, normal ROM Neuro: no focal neuro deficits, moving all 4 extremities, CN2-12 intact. Strenght 3/5 RLE. 4/5 in LLE. 4/4. 5/5 in RUE. No nystagmus. Psych: calm, cooperative, AAO x 3 LABORATORY DATA, IMAGING STUDIES, MICROBIOLOGY: Please see below. Liver US IMPRESSION: Findings most consistent with diffuse fatty infiltration of the liver. DVT prophylaxis ordered?: Yes ASSESSMENT AND PLAN: Mr. Dunn is a 50-year-old male with a past medical history of hypertension, sleep apnea on CPAP, chronic back pain, obesity, presented to the ER on 10/19 for generalized and diffuse muscle aches and pains with weakness and difficulty ambulating. Patient has been working hard physically as he is a [place] but lately has been very finding very difficult to walk. Patient was recently admitted on 10/13/2020 for diarrhea found to be secondary to Campylobacter. He completed 3-day course of azithromycin. On arrival patient found to have a creatinine phosphokinase level of over 200,000 as well as a creatinine of 4.5. Patient was admitted for treatment of rhabdo myolysis and acute kidney injury. He is being followed by nephrology. Plan is for insertion of a permacath and to start dialysis this afternoon. PROBLEMS: Rhabdomyolysis with ANDREA, possibly 2/2 recent campylobacter infection Fluids were DC'd. CK elevation persists. AST and ALT slowly trending down CPK trending down Will obtain liver ultrasound - reviewed as above Nephrology is following, d/w Dr. Mcnulty this morning. Permacath was inserted by Dr. Lester on 10/21/2020. Ongoing hemodialysis Muscle weakness, asymmetric Possibly 2/2 rhabdo d/w Dr. Eden, placed neuro consult reduced dose of gabapentin to 100 mg qhs. D/w Dr. Eden, does not believe there to a neurological cause for weakness. [place] can cause slight elevation of CPK, but not to these extemes. Campylobacter diarrhea Resolved, completed 3 days course of azithromycin on prior admission Hypertension Continue amlodipine Ordered hydralazine 50 mg every 8 hours as needed for systolic blood pressure above 180 Patient has received 4 hemodialysis sessions thus far TASHA May use own CPAP Dispo: pending clinical improvement. Evaluated by PT. Unable to stand with 2 assist. Will likely require rehab. Placed ARU evaluation on 10/25/20. VS, I&O, 24H, [facility] Vital Signs/I&O Vital Signs Date Time Temp Pulse Resp B/P (MAP) Pulse Ox O2 Delivery O2 Flow Rate FiO2 10/26/20 06:00 98.6 83 16 162/80 (107) 96 Room Air 10/21/20 17:10 2.0 I&O- Last 24 Hours up to 6 AM 10/26/20 06:00 Intake Total 1130 ml Output Total 2850 ml Balance -1720 ml Laboratory Data 24H LABS Laboratory Tests 2 10/26/20 05:28: Immature Granulocyte % (Auto) 1.9, Neutrophils (%) (Auto) 77.8H, Lymphocytes (%) (Auto) 7.8L, Monocytes (%) (Auto) 9.5H, Eosinophils (%) (Auto) 2.3, Basophils (%) (Auto) 0.7, Neutrophils # (Auto) 9.2H, Lymphocytes # (Auto) 0.9L, Monocytes # (Auto) 1.1H, Eosinophils # (Auto) 0.3, Basophils # (Auto) 0.1, Nucleated Red Blood Cells % (auto) 0.0, Anion Gap 10, Glomerular Filtration Rate 9.0L, Calcium Level 8.4L, Magnesium Level 3.0H, Total Bilirubin 0.4, Aspartate Amino Transf (AST/SGOT) 238H, Alanine Aminotransferase (ALT/SGPT) 401H, Alkaline Phosphatase 119H, Total Creatine Kinase 1936H, Total Protein 5.8L, Albumin 2.5L, Albumin/Globulin Ratio 0.8 CBC/BMP Laboratory Tests 10/26/20 05:28 JEFERSON MCCRAY MD Oct 26, 2020 11:47
--- NOTE | 2020-10-26 15:15 | IPN ---
NEPHROLOGY PROGRESS NOTE DATE: 10/26/2020 SUBJECTIVE: Mr. Dunn is seen this morning on his bedside. He reports that he had some strange sensations through the night. This morning, he is feeling better and denies any dyspnea, chest pain, nausea or vomiting. He was dialyzed yesterday and he tolerated his dialysis treatment well. PHYSICAL EXAMINATION: VITAL SIGNS: Temperature 97.6 degrees Fahrenheit, heart rate 83 per minute, respiratory rate 16 per minute, blood pressure 160/80 mmHg, oxygen saturation 96% on room air. HEAD: Atraumatic. NECK: Supple and without jugular venous distention (JVD) or thyroid enlargement. Hemodialysis catheter is present in right internal jugular vein. HEART SOUNDS: Regular. LUNGS: Clear to auscultation. ABDOMEN: Soft and nontender. Bowel sounds are normal. EXTREMITIES: Without any cyanosis or clubbing. NEUROLOGIC: He is grossly intact without a focal deficit. LABORATORY DATA: Today's labs show WBC 11.8, hemoglobin 13.1, hematocrit 38.8. Sodium 134, potassium 5.6, CO2 23, BUN 77, creatinine 7.0, calcium level 8.4 AST down to 238, ALT 401. CPK level is now down to 1936. PROBLEMS: 1. Acute renal failure. Patient is still oliguric, but seems to have increasing urine output. I ordered a dose of Lasix earlier at about 11:00, as I did not have any plans for dialysis at that time. His hyperkalemia is most likely related to dietary indiscretion and ongoing rhabdomyolysis. This afternoon, we have changed our plan and will be dialyzing him again today. This will help to improve his electrolytes and volume status. 2. Hyperkalemia. Most likely related to rhabdomyolysis and high potassium diet. Patient is already on a renal diet. He is going to be dialyzed this afternoon with 1.0 mEq potassium bath, which is likely to correct his hyperkalemia. 3. Rhabdomyolysis. Patient had severe rhabdomyolysis; however, it is now improving and CPK level is down to 1936. Patient is still very weak and unable to ambulate. I have reassured him that his muscle strength is likely to improve over the next couple of days and probably needs some rehabilitation. 4. Hypertension. At present, his blood pressure is slightly high and likely to improve with further dialysis today, as we are planning to remove another 2 liters of fluid. I will recommend to continue with his current antihypertensives for now.
[2020-10-26] MEDS: **hydrALAZINE** 50 MG TAB PO PRN (17:02)
[2020-10-26] MEDS: traMADol 50 MG TAB PO PRN (20:43)
[2020-10-26] MEDS: GABAPENTIN 100 MG CAP PO SCH (20:43)
[2020-10-26 21:00] VITALS: BP 159/74
[2020-10-27 06:00] VITALS: BP 173/88
[2020-10-27 08:13] LABS: BASO # 0.1 10^3/uL (0.0-0.2); BASO % 0.4 % (0.0-1.0); EOS # 0.3 10^3/uL (0.0-0.5); EOS % 2.6 % (0.0-3.0); HEMATOCRIT 37.1 % (42.0-52.0); HEMOGLOBIN 12.5 g/dl (13.5-17.5); LYMPH % 8.6 % (24.0-44.0); MEAN CORPUSCULAR HGB CONC 33.7 g/dl (32.0-36.5); MEAN CORPUSCULAR VOLUME 89.2 fl (80.0-96.0); MONO # 1.1 10^3/uL (0.0-0.8); MONO % 9.4 % (2.0-8.0); NEUTROPHILS # 8.7 10^3/uL (1.5-8.5); NEUTROPHILS % 77.6 % (36.0-66.0); PLATELET COUNT, AUTOMATED 367 10^3/uL (150-450); RED BLOOD COUNT 4.16 10^6/uL (4.30-6.10); WHITE BLOOD COUNT 11.2 10^3/uL (4.0-10.0)
[2020-10-27 08:18] LABS: ALBUMIN 2.5 GM/DL (3.2-5.2); BILIRUBIN,TOTAL 0.5 MG/DL (0.2-1.0); CALCIUM LEVEL 8.6 MG/DL (8.5-10.1); CREATININE FOR GFR 6.12 MG/DL (0.70-1.30); GLOMERULAR FILTRATION RATE 10.5 (>60); POTASSIUM SERUM 5.3 MEQ/L (3.5-5.1); TOTAL PROTEIN 5.9 GM/DL (6.4-8.2)
[2020-10-27] MEDS ORDERED: PATIROMER SORBITEX CALCIUM 8.4 GM POWDER PACKET (VELTASSA) PO ONE (08:30)
[2020-10-27] MEDS: CALCIUM ACETATE 667MG GELCAP PO SCH ×3 (09:11→17:48)
[2020-10-27] MEDS: DOCUSATE SODIUM 100MG CAPSULE PO SCH ×2 (09:11→20:56)
[2020-10-27] MEDS: LABETALOL 100MG TAB PO SCH ×2 (10:45→20:55)
--- NOTE | 2020-10-27 10:46 | IPN ---
PROGRESS NOTE DATE: 10/27/2020 SUBJECTIVE: Mr. Dunn is seen and examined this morning at the bedside. He was dialyzed yesterday for 3.5 hours with a 1.0 mEq potassium bath, however despite that he is still mildly hyperkalemic on blood work today and has had essentially no significant in his blood urea nitrogen nor creatinine level over the past 24 hours when I compared yesterday's labs to today. He reports no bowel movement for the past week but he is passing gas. He continues with Leo catheter and is nonoliguric. He reports weakness has improved in his arms and in his left leg but his right leg is still weak. He has not gotten out of bed since admission he tells me. OBJECTIVE: VITAL SIGNS: Temperature is 98.4, pulse is 83, respiratory rate is 14, blood pressure is 172/88, saturating 97% on room air. INTAKE AND OUTPUT: Intake yesterday was 1.2 liters, urine output yesterday was 700. Dialysis yesterday removed 2 liters. Weight on the bed scale today is not recorded. GENERAL: Patient is seen awake, alert and oriented, lying in bed in no distress although he is mildly anxious. HEENT: Extraocular muscles are intact. Tongue is moist. NECK: Supple. Jugular veins are not elevated. HEART: Regular. S1 and S2. EXTREMITIES: There is no leg edema. LUNGS: Clear to auscultation. No crackles or rales. ABDOMEN: Soft and nontender. There are bowel sounds. GENITOURINARY: Leo catheter. EXTREMITIES: Good movement of the arms and of the left leg. He is able to raise it easily while lying in bed, however the right leg is still weak as compared to the other extremities. NEUROLOGIC: He is oriented x3, interactive and conversational and has very good insight. SKIN: Warm, normal turgor. No rashes. LABORATORY DATA: Sodium is 136, potassium is 5.3, bicarbonate 23, BUN 68, creatinine 6.1, creatinine on yesterday's labs 7.0, BUN on yesterday's labs are 77. AST 160, ALT 325. Creatine kinase 1054. Albumin is 2.5. Hemoglobin is 12.5, white count is 11.2. Renal ultrasound done yesterday shows no renal artery stenosis and no hydronephrosis. INPATIENT MEDICATIONS: Reviewed by myself and no changes are noted over the past few days. I did order one dose of Veltassa today. PROBLEMS: 1. Acute kidney injury in the setting of rhabdomyolysis. Patient is non-oliguric at this time; after receiving a dose of Lasix yesterday morning he has made 700 ml of urine in the past 24 hours. He was dialyzed yesterday but there is minimal change in his blood urea nitrogen and serum creatinine levels despite a 3.5 hour dialysis treatment. Likewise, he is still mildly hyperkalemic on today's labs. He is most likely going to get another dialysis treatment tomorrow, October 28 and I will repeat labs postdialysis so that we can ensure that there is no trouble with his Perm-A-Cath. 2. Hyperkalemia, mild, persistent, related to kidney injury and possibly indicative of some trouble with his dialysis catheter. One dose of Veltassa is ordered for today. He is on a renal diet and most likely will be dialyzed again tomorrow, October 28. He was dialyzed yesterday for 3.5 hours with a 1.0 mEq potassium bath and the concern is that there may be some issue with his dialysis catheter. 3. Hypertension, blood pressures are not at goal. Systolics have been 150s to 180, pulse is 80s to 90s. Patient is on amlodipine along with as needed hydralazine. I am going to add low dose beta bianca. 4. Hyperphosphatemia, it was in the setting of acute kidney injury. He is on a phosphorus binder (PhosLo). I have ordered a repeat phosphorus level for tomorrow. 5. Rhabdomyolysis. Creatine kinase level is down to 1000. Patient is still having weakness in his right lower extremity but reports that the remainder of extremity movements have improved. Liver function tests are noted. He is most likely going to need rehabilitation placement.
[2020-10-27 14:00] VITALS: BP 169/93
[2020-10-27] MEDS ORDERED: cloNIDine 0.1MG TABLET PO SCH (14:25)
--- NOTE | 2020-10-27 14:31 | IPNPDOC ---
Date Seen The patient was seen on 10/27/20. Progress Note SUBJECTIVE: Patient was seen and examined at bedside this morning. Patient continues to have muscular weakness, and has difficulty ambulating. Weakness however is improving slowly. He states his pain is improving. CPK and liver enzymes are trending down. Denies chest pain, palpitations, SOB. BP elevated overnight. OBJECTIVE PHYSICAL EXAMINATION: VITAL SIGNS: please see below General: NAD, comfortable HEENT: PERRLA, EOMI, sclerae clear Neck: supple, normal ROM, no JVD Respiratory: Crackles at lung bases, respiratory effort. CVS: RRR, normal S1, S2, no murmurs Abdo: soft, no masses, no hepatosplenomegaly, BS+, no rebound tenderness Extremities: 1+ edema pulses 2+ MSK: no joint deformities, normal ROM Neuro: no focal neuro deficits, moving all 4 extremities, CN2-12 intact. Strenght 3/5 RLE. 4/5 in LLE. 4/4. 5/5 in RUE. No nystagmus. Psych: calm, cooperative, AAO x 3 LABORATORY DATA, IMAGING STUDIES, MICROBIOLOGY: Please see below. Renal US with dopplers (10/26/20): IMPRESSION: 1. No hemodynamically significant stenosis. 2. Mildly echogenic kidneys. 3. Elevated resistive indices in the kidneys bilaterally. Consistent with renal disease of unknown specific etiology. 4. Renal veins were not interrogated. Liver US IMPRESSION: Findings most consistent with diffuse fatty infiltration of the liver. DVT prophylaxis ordered?: Yes ASSESSMENT AND PLAN: Mr. Dunn is a 50-year-old male with a past medical history of hypertension, sleep apnea on CPAP, chronic back pain, obesity, presented to the ER on 10/19 for generalized and diffuse muscle aches and pains with weakness and difficulty ambulating. Patient has been working hard physically as he is a [place] but lately has been very finding very difficult to walk. Patient was recently admitted on 10/13/2020 for diarrhea found to be secondary to Campylobacter. He completed 3-day course of azithromycin. On arrival patient found to have a creatinine phosphokinase level of over 200,000 as well as a creatinine of 4.5. Patient was admitted for treatment of rhabdomyolysis and acute kidney injury. He is being followed by nephrology. Plan is for insertion of a permacath and to start dialysis this afternoon. PROBLEMS: Rhabdomyolysis with ANDREA, possibly 2/2 recent campylobacter infection Fluids were DC'd. AST and ALT slowly trending down CPK trending down Will obtain liver ultrasound - reviewed as above, fatty liver Nephrology is following, d/w Dr. Mcnulty this morning. Permacath was inserted by Dr. Lester on 10/21/2020. Ongoing HD, next session on 10/28/[address] Rima Mcnulty, will check labs after HD to ensure permacath functioing well. Muscle weakness, asymmetric Possibly 2/2 rhabdo d/w Dr. Eden, placed neuro consult reduced dose of gabapentin to 100 mg qhs. D/w Dr. Eden, does not believe there to a neurological cause for weakness. Guill[place] can cause slight elevation of CPK, but not to these extemes. Campylobacter diarrhea Resolved, completed 3 days course of azithromycin on prior admission Hypertension BP is not at goal Continue amlodipine Ordered hydralazine 50 mg every 8 hours as needed for systolic blood pressure above 180 Dr. Rima Mcnulty has added BB to regimen renal US showing no renal artery stenosis. TASHA May use own CPAP Dispo: pending clinical improvement. Evaluated by PT. Unable to stand with 2 assist. Will likely require rehab. Placed ARU evaluation on 10/25/20. VS, I&O, 24H, [facility] Vital Signs/I&O Vital Signs Date Time Temp Pulse Resp B/P (MAP) Pulse Ox O2 Delivery O2 Flow Rate FiO2 10/27/20 09:12 81 174/98 10/27/20 06:00 98.4 14 97 Room Air 10/21/20 17:10 2.0 I&O- Last 24 Hours up to 6 AM 10/27/20 06:00 Intake Total 1200 ml Output Total 2450 ml Balance -1250 ml Laboratory Data 24H LABS Laboratory Tests 2 10/27/20 06:37: Immature Granulocyte % (Auto) 1.4, Neutrophils (%) (Auto) 77.6H, Lymphocytes (%) (Auto) 8.6L, Monocytes (%) (Auto) 9.4H, Eosinophils (%) (Auto) 2.6, Basophils (%) (Auto) 0.4, Neutrophils # (Auto) 8.7H, Lymphocytes # (Auto) 1.0L, Monocytes # (Auto) 1.1H, Eosinophils # (Auto) 0.3, Basophils # (Auto) 0.1, Nucleated Red Blood Cells % (auto) 0.0 10/27/20 06:43: Anion Gap 11, Glomerular Filtration Rate 10.5L, Calcium Level 8.6, Total Bilirubin 0.5, Aspartate Amino Transf (AST/SGOT) 160H, Alanine Aminotransferase (ALT/SGPT) 325H, Alkaline Phosphatase 118H, Total Creatine Kinase 1054H, Total Protein 5.9L, Albumin 2.5L, Albumin/Globulin Ratio 0.7 CBC/BMP Laboratory Tests 10/27/20 06:37 10/27/20 06:43 JEFERSON MCCRAY MD Oct 27, 2020 14:31
[2020-10-27 20:29] VITALS: BP 163/90
[2020-10-27] MEDS: GABAPENTIN 100 MG CAP PO SCH (20:55)
[2020-10-27] MEDS: traMADol 50 MG TAB PO PRN (20:56)
[2020-10-28 05:38] VITALS: BP 167/96
[2020-10-28] MEDS: LABETALOL 100MG TAB PO SCH ×2 (06:26→21:41)
[2020-10-28] MEDS: CALCIUM ACETATE 667MG GELCAP PO SCH ×3 (06:26→18:24)
[2020-10-28] MEDS ORDERED: LIDOCAINE 1% SDV 5ML VIAL SC PRN (07:35)
[2020-10-28] MEDS: DOCUSATE SODIUM 100MG CAPSULE PO SCH ×2 (07:52→21:00)
[2020-10-28 08:02] LABS: CALCIUM LEVEL 8.4 MG/DL (8.5-10.1); CREATININE FOR GFR 8.26 MG/DL (0.70-1.30); GLOMERULAR FILTRATION RATE 7.4 (>60)
--- NOTE | 2020-10-28 12:50 | IPNPDOC ---
Text Note Date of Service The patient was seen on 10/28/20. NOTE Subjective: No new acute events overnight. Patient stated that he feels better today. No fever or chills. Objective: GENERAL APPEARANCE: NAD HEENT: no scleral icterus, no JVD, EOMI CARDIOVASCULAR: S1S2 LUNGS: CTA ABDOMEN: soft & not tender w palpation MUSCULOSKELETAL: no cyanosis, +1 swelling of lower extremities INTEGUMENT: no generalized pallor NEUROLOGICAL: cranial nerve function from 2-12 intact, follows commands, speech not dysarthric Assessment and plan Mr. Dunn is a 50-year-old male with a past medical history of hypertension, sleep apnea on CPAP, chronic back pain, obesity, presented to the ER on 10/19 for generalized and diffuse muscle aches and pains with weakness and difficulty ambulating. Patient has been working hard physically as he is a [place] but lately has been very finding very difficult to walk. Patient was recently admitted on 10/13/2020 for diarrhea found to be secondary to Campylobacter. He completed 3-day course of azithromycin. On arrival patient found to have a creatinine phosphokinase level of over 200,000 as well as a creatinine of 4.5. Patient was admitted for treatment of rhabdomyolysis and acute kidney injury. Nephrology team started dialysis. ANDREA Secondary to rhabdomyolysis Nephrology team follows hemodialysis was done today There is concern that PermCath is not working appropriately. Continue to mon [facility] after dialysis Muscle pain/weakness Secondary to rhabdomyolysis Pain management Campylobacter diarrhea Resolved, completed 3 days course of azithromycin on prior admission Hypertension Continue amlodipine, hydralazine, labetalol with parameters We will regulate volume status with dialysis hopefully it will help with stabilization of blood pressure TASHA May use own CPAP Deconditioning PT/OT DVT prophylaxis with heparin 5000 units twice daily VS,Fishbone, I+O VS, Fishbone, I+O Laboratory Tests 10/28/20 05:46 Vital Signs Date Time Temp Pulse Resp B/P (MAP) Pulse Ox O2 Delivery O2 Flow Rate FiO2 10/28/20 06:26 77 167/96 10/28/20 05:38 98.3 16 97 Room Air I&O- Last 24 Hours up to 6 AM 10/28/20 05:59 Intake Total 1120 ml Output Total 1900 ml Balance -780 ml NEHEMIAS DELAROSA DO Oct 28, 2020 12:50
[2020-10-28 14:00] VITALS: BP 159/78
[2020-10-28 15:28] LABS: CALCIUM LEVEL 8.5 MG/DL (8.5-10.1); CREATININE FOR GFR 4.27 MG/DL (0.70-1.30); GLOMERULAR FILTRATION RATE 15.8 (>60); POTASSIUM SERUM 4.8 MEQ/L (3.5-5.1)
[2020-10-28] MEDS: HEPARIN SOD (PORCINE) 5000UNITS/ML 1ML VIAL/SYRINGE SQ SCH (21:38)
[2020-10-28] MEDS: traMADol 50 MG TAB PO PRN (21:40)
[2020-10-28] MEDS: GABAPENTIN 100 MG CAP PO SCH (21:40)
--- NOTE | 2020-10-28 22:27 | IPN ---
NEPHROLOGY PROGRESS NOTE DATE: 10/28/2020 SUBJECTIVE: Mr. Dunn is seen and examined this morning in the hemodialysis unit receiving a treatment. His dialysis treatments have been uneventful. His urine output appears to slowly be picking up. He made almost 1.5 liters in the past 24 hours and he had minimal fluid removed with dialysis today. He reports he had a bowel movement but has still not gotten out of bed and remains weak and is pending rehabilitation placement. Post dialysis labs were also obtained to insure adequate dialysis catheter function, given his recent persistent hyperkalemia. OBJECTIVE: VITAL SIGNS: Temperature 98.4, pulse 76, respiratory rate 15, blood pressure 159/78, saturating 97% on room air. INTAKE AND OUTPUT: Intake yesterday was 820. Urine output yesterday was 1,450. Weight in the bed scale today is 103.3 kg. PHYSICAL EXAMINATION: GENERAL APPEARANCE: The patient was seen in the hemodialysis unit receiving his treatment, awake, alert, oriented x3 in no apparent distress. HEENT: Extraocular muscles are intact. Tongue is moist. NECK: Supple. Jugular veins were not elevated. Tunneled hemodialysis catheter is in use. HEART: Regular. S1, S2. There is 1+ leg edema noted. Peripheral pulses are palpable. LUNGS: Clear to auscultation. No crackles or rales. ABDOMEN: Soft and nontender. GENITOURINARY: Leo catheter. EXTREMITIES: No cyanosis or clubbing, but there is 1+ edema in the legs. NEUROLOGICAL: He is oriented x3 and moves all four extremities on command. LABORATORY STUDIES: White count 11.2, hemoglobin 12.5, platelet count 367, sodium 133, post dialysis sodium 136, potassium 6.0, post dialysis potassium 4.8, bicarbonate 17, post dialysis bicarbonate 26, BUN 103, post dialysis BUN 44, creatinine 8.2, post dialysis creatinine 4.2, phosphorous 13.0, creatine kinase 980. INPATIENT MEDICATIONS: The patient's medications were reviewed by myself and no change is noted over the past 24 hours with the exception of the Labetalol that he was started on yesterday. PROBLEMS: 1. Acute kidney injury (non-oliguric) in the setting of rhabdomyolysis - The patient remains in renal failure and is hemodialysis dependent at the present time. He has been persistently hyperkalemic the past several days. He was dialyzed for 4 hours today with a 1.0 mEq bath, and we obtained post dialysis labs to ensure adequate function of the dialysis catheter and post dialysis labs were acceptable. He appears to have some improvement in his urine output, and I cut down on the amount of fluid that we removed with dialysis today. We will continue to keep a close eye on him and monitor for signs of renal recovery. He is most likely going to require acute rehabilitation. 2. Rhabdomyolysis with hyperkalemia and hyperphosphatemia his creatine kinase level has all but normalized. Peak creatine kinase level was 200,000 and now less than 1,000. The patient was dialyzed today with a low potassium dialysis bath. He is also on a phosphorous binder and dialysis will help with the hyperphosphatemia as well. I am getting a repeat phosphorous level tomorrow. 3. Hypertension - blood pressures are still not at goal but have improved. He continues on Amlodipine. Labetalol was also recently started and he is receiving Hydralazine (on a p.r.n. basis). 4. Metabolic acidosis it was mild and it has improved with dialysis.
[2020-10-28 22:45] VITALS: BP 165/74
[2020-10-29 06:00] VITALS: BP 164/93
[2020-10-29 06:38] LABS: BASO # 0.1 10^3/uL (0.0-0.2); BASO % 0.5 % (0.0-1.0); EOS # 0.4 10^3/uL (0.0-0.5); EOS % 3.5 % (0.0-3.0); HEMATOCRIT 34.7 % (42.0-52.0); HEMOGLOBIN 11.7 g/dl (13.5-17.5); LYMPH # 1.1 10^3/uL (1.5-5.0); LYMPH % 10.9 % (24.0-44.0); MEAN CORPUSCULAR HEMOGLOBIN 30.2 pg (27.0-33.0); MEAN CORPUSCULAR HGB CONC 33.7 g/dl (32.0-36.5); MEAN CORPUSCULAR VOLUME 89.4 fl (80.0-96.0); MONO % 9.6 % (2.0-8.0); NEUTROPHILS # 7.5 10^3/uL (1.5-8.5); NEUTROPHILS % 74.2 % (36.0-66.0); PLATELET COUNT, AUTOMATED 322 10^3/uL (150-450); RED BLOOD COUNT 3.88 10^6/uL (4.30-6.10); WHITE BLOOD COUNT 10.1 10^3/uL (4.0-10.0)
[2020-10-29 07:16] LABS: ALBUMIN 2.6 GM/DL (3.2-5.2); BILIRUBIN,TOTAL 0.4 MG/DL (0.2-1.0); CREATININE FOR GFR 6.18 MG/DL (0.70-1.30); GLOMERULAR FILTRATION RATE 10.3 (>60); PHOSPHORUS LEVEL 9.7 MG/DL (2.5-4.9); POTASSIUM SERUM 5.2 MEQ/L (3.5-5.1); TOTAL PROTEIN 5.7 GM/DL (6.4-8.2)
[2020-10-29] MEDS: CALCIUM ACETATE 667MG GELCAP PO SCH ×3 (08:33→17:40)
[2020-10-29] MEDS: DOCUSATE SODIUM 100MG CAPSULE PO SCH ×2 (08:34→20:57)
[2020-10-29] MEDS: LABETALOL 100MG TAB PO SCH ×2 (08:34→20:57)
[2020-10-29] MEDS: HEPARIN SOD (PORCINE) 5000UNITS/ML 1ML VIAL/SYRINGE SQ SCH ×2 (08:34→20:59)
--- NOTE | 2020-10-29 11:28 | IPNPDOC ---
Text Note Date of Service The patient was seen on 10/29/20. NOTE Subjective: No any acute events overnight. Patient stated that he feels better today. No fever or chills. I have found that patient was exposed to COVID-19. Objective: GENERAL APPEARANCE: NAD HEENT: no scleral icterus, no JVD, EOMI CARDIOVASCULAR: S1S2 LUNGS: CTA ABDOMEN: soft & not tender w palpation MUSCULOSKELETAL: no cyanosis, +1 swelling of lower extremities INTEGUMENT: no generalized pallor NEUROLOGICAL: cranial nerve function from 2-12 intact, follows commands, speech not dysarthric Assessment and plan Mr. Dunn is a 50-year-old male with a past medical history of hypertension, sleep apnea on CPAP, chronic back pain, obesity, presented to the ER on 10/19 for generalized and diffuse muscle aches and pains with weakness and difficulty ambulating. Patient has been working hard physically as he is a [place] but lately has been very finding very difficult to walk. Patient was recently admitted on 10/13/2020 for diarrhea found to be secondary to Campylobacter. He completed 3-day course of azithromycin. On arrival patient found to have a creatinine phosphokinase level of over 200,000 as well as a creatinine of 4.5. Patient was admitted for treatment of rhabdomyolysis and acute kidney injury. Nephrology team started dialysis. ANDREA nonoliguric Secondary to rhabdomyolysis Nephrology team follows him Rhabdomyolysis/hyperphosphatemia CPK trended down and normalized Continue dialysis Phosphorus binder Muscle pain/weakness Secondary to rhabdomyolysis Pain management Campylobacter diarrhea Resolved, completed 3 days course of azithromycin on prior admission Hypertension Continue amlodipine, hydralazine, labetalol with parameters We will regulate volume status with dialysis hopefully it will help with stabilization of blood pressure I changed hydralazine p.o. as needed to scheduled given increased blood pressure to 178/100 in the morning TASHA May use own CPAP Deconditioning PT/OT Hyperkalemia Potassium 5.2 today Kayexalate p.o. COVID-19 exposure Patient was exposed to COVID-19 and he has a high risk for complications due to immunocompromised status secondary to dialysis I will give him monoclonal antibody infusion. I called the pharmacy, they told me that we do not have Covid vaccine in the hospital DVT prophylaxis with heparin 5000 units twice daily VS,Fishbone, I+O VS, Fishbone, I+O Laboratory Tests 9/7/21 14:36 10/29/20 06:09 Vital Signs Date Time Temp Pulse Resp B/P (MAP) Pulse Ox O2 Delivery O2 Flow Rate FiO2 10/29/20 08:34 77 178/90 10/29/20 06:00 97.7 19 98 Room Air I&O- Last 24 Hours up to 6 AM 10/29/20 06:00 Intake Total 560 ml Output Total 1950 ml Balance -1390 ml NEHEMIAS DELAROSA Oct 29, 2020 11:28
[2020-10-29] MEDS ORDERED: methylPREDNISolone 125MG 2ML VIAL IV PRN (11:40)
[2020-10-29] MEDS ORDERED: EPINEPHrine INJ 1 MG/ML 1ML AMP IM PRN (11:40)
[2020-10-29] MEDS ORDERED: ALBUTEROL SULFATE 2.5 MG/0.5 ML INH NEB SOLN INH PRN (11:40)
[2020-10-29] MEDS ORDERED: ALBUTEROL 90 MCG/ACT 8GM HFA INHALER INH PRN (11:40)
[2020-10-29] MEDS ORDERED: NS 1,000 ML IV SCH (11:40)
[2020-10-29] MEDS ORDERED: diphenhydrAMINE 50MG/ML VIAL (J1200) IV PRN (11:40)
[2020-10-29] MEDS: SUCROFERRIC OXYHYDROXIDE 500MG CHEW TAB (VELPHORO) PO SCH ×2 (12:25→17:40)
[2020-10-29] MEDS ORDERED: SOD POLYSTYRENE SULFONATE SUSP 15 GM/60 ML UD PO ONE (13:00)
--- NOTE | 2020-10-29 13:49 | IPN ---
NEPHROLOGY PROGRESS NOTE DATE: 10/29/2020 SUBJECTIVE: Mr. Dunn is seen and examined this morning at the bedside. He was dialyzed yesterday. There were no issues with his dialysis treatment. He remains satisfactorily non oliguric but remains hemodialysis dependent at this time. He is working with Physical Therapy but has been requiring a StairSteady. OBJECTIVE: PHYSICAL EXAMINATION: VITAL SIGNS: Temperature 97.7, pulse 72, respiratory rate 19, blood pressure 164/93, saturating 98% on room air. INTAKE AND OUTPUT: Intake yesterday was 660, urine output yesterday was 1,250. Hemodialysis removed 700. Weight in the bed scale today is 101 kg. PHYSICAL EXAMINATION: GENERAL APPEARANCE: The patient is seen in lying in bed. He was able to sit up with assistance. HEENT: The extraocular muscles are intact. Tongue is moist. NECK: Supple. Jugular veins are not elevated. CHEST: Tunneled permacath is present in the right chest wall. HEART: Regular. S1, S2. There is trace peripheral edema. LUNGS: Clear to auscultation. No crackles or rales. ABDOMEN: Soft and nontender. GENITOURINARY: Indwelling Leo catheter and clear yellow urine. EXTREMITIES: Trace edema but no clubbing or cyanosis. NEUROLOGIC: He is oriented x3, interactive, conversational, good insight and is generally weak and requires assistance with movement. LABORATORY STUDIES: Sodium 135, potassium 5.2, bicarbonate 23, BUN 71, creatinine 6.1, phosphorous 9.7, AST 100, ALT 212, creatine kinase 699, hemoglobin 11.7. INPATIENT MEDICATIONS: I started the patient on Velphoro 500 mg with each meal. I see he is also getting a dose of Regeneron. He is on Albuterol p.r.n., Benadryl p.r.n. The remainder medications are unchanged as compared to yesterday. PROBLEMS: 1. Non oliguric acute kidney injury in the setting of rhabdomyolysis - The patient continues to be hemodialysis dependent, but he is making more than a liter of urine for the past 2 days in a row and that is favorable. We will keep a close eye for ongoing signs of renal recovery. Next dialysis is likely to be tomorrow, October 30. 2. Hyperphosphatemia Despite dialysis, the patient's phosphorous level is significantly elevated. He is on calcium Acetate for phosphorous binding and I am also adding Velphoro. 3. Hypertension - blood pressures remain poorly controlled. The patient is on Amlodipine. His Hydralazine is now made standing, and he is on Labetalol. He is not suitable for any hernesto, ARB or diuretics at this time. 4. Hyperkalemia it is mild. It is improving. He is on a renal diet and potassium level is controlled with hemodialysis at this time. 5. Hypermagnesemia - magnesium level is 3.0 and I am discontinuing Milk of Magnesia from the medication list. 6. Rhabdomyolysis creatine kinase level peaked at 200,000 but has now been less than 1,000. The patient had renal failure secondary to rhabdomyolysis and remains dialysis dependent at the present time and is generally quite weak and requiring assistance with movement and is going to need acute rehabilitation and Nephrology will continue to follow him through the rehab unit as well.
[2020-10-29 14:00] VITALS: BP 172/92
[2020-10-29] MEDS: **hydrALAZINE** 50 MG TAB PO SCH ×2 (14:30→20:58)
[2020-10-29] MEDS ORDERED: CASIRIVIMAB/IMDEVIMAB 1,200 MG in NS 250 ML IV ONE (15:00)
--- NOTE | 2020-10-29 16:10 | IPN ---
PROGRESS NOTE DATE: 10/29/2020 SUBJECTIVE: Mr. Dunn is seen and examined this morning at the bedside. He was dialyzed yesterday. There were no issues with his dialysis treatment. He remains satisfactorily non-oliguric but remains hemodialysis dependent at this time. He is working with physical therapy but has been requiring a StairSteady. OBJECTIVE: VITAL SIGNS: Temperature 97.7, pulse is 72, respiratory rate is 19, blood pressure is 164/93, saturating 98% on room air. INTAKE AND OUTPUT: Intake yesterday was 660, urine output yesterday was 1250, hemodialysis removed 700, weight on the bed scale today is 101 kg. GENERAL: Patient is seeing lying in bed, was able to sit up with assistance. HEENT: Extraocular muscles are intact. Tongue is moist. NECK: Supple. Jugular veins are not elevated. Tunneled Perm-A-Cath is present in the right chest wall. HEART: Regular. S1, S2. There is trace peripheral edema. LUNGS: Clear to auscultation. No crackles or rales. ABDOMEN: Soft and nontender. GENITOURINARY: Indwelling Leo catheter and clear yellow urine. EXTREMITIES: Trace edema but no clubbing or cyanosis. NEUROLOGICAL: He is oriented x3, interactive, conversational, good insight, and is generally weak and requires assistance with movement. LABORATORY DATA: Sodium 135, potassium 5.2, bicarbonate 23, BUN 71, creatinine 6.1, phosphorus 9.7. AST 100, ALT 212. Creatine kinase 699. Hemoglobin 11.7. INPATIENT MEDICATIONS: I started the patient on Velphoro 500 mg with each meal. I see he is also getting a dose of Regeneron. He is on Albuterol p.r.n., Benadryl p.r.n. The remainder of medications are unchanged as compared to yesterday. PROBLEMS: 1. Nonoliguric acute kidney injury in the setting of rhabdomyolysis. Patient continues to be hemodialysis dependent but he is making more than a liter of urine for the past two days in a row and that is favorable. We will keep a close on him for ongoing signs of renal recovery. Next dialysis is likely to be tomorrow, October 30. 2. Hyperphosphatemia. Despite dialysis, the patient's phosphorus level is significantly elevated. He is on calcium acetate for phosphorus binding and I am also adding Velphoro. 3. Hypertension, blood pressures remain poorly controlled. The patient is on amlodipine. His hydralazine is now made standing. He is on labetalol. He is not suitable for any FILIPPO, ARB or diuretic at this time. 4. Hyperkalemia, it is mild, it is improving. He is on a renal diet and potassium level is controlled with hemodialysis at this time. 5. Hypermagnesemia. Magnesium level is 3.0 and I am discontinuing Milk of Magnesia from the medication list. 6. Rhabdomyolysis. Creatine kinase level peaked at 200,000 but has now been less than 1,000. Patient had renal failure secondary to rhabdomyolysis and remains dialysis dependent at the present time and is generally quite weak and requiring assistance with movement and is going to need acute rehabilitation and Nephrology will continue to follow him through the rehab unit as well.
[2020-10-29] MEDS: GABAPENTIN 100 MG CAP PO SCH (20:58)
[2020-10-29] MEDS: traMADol 50 MG TAB PO PRN (20:59)
[2020-10-29 22:00] VITALS: BP 164/91
[2020-10-30 05:27] VITALS: BP 162/93
[2020-10-30] MEDS: **hydrALAZINE** 50 MG TAB PO SCH ×3 (05:28→21:23)
[2020-10-30] MEDS ORDERED: SODIUM CHLORIDE 0.9% 1000ML IV PRN (07:50)
[2020-10-30] MEDS: LABETALOL 100MG TAB PO SCH ×2 (08:13→21:22)
[2020-10-30] MEDS: SUCROFERRIC OXYHYDROXIDE 500MG CHEW TAB (VELPHORO) PO SCH ×3 (08:14→18:07)
[2020-10-30] MEDS: DOCUSATE SODIUM 100MG CAPSULE PO SCH ×2 (08:14→21:22)
[2020-10-30] MEDS: CALCIUM ACETATE 667MG GELCAP PO SCH ×3 (08:14→18:07)
[2020-10-30] MEDS: HEPARIN SOD (PORCINE) 5000UNITS/ML 1ML VIAL/SYRINGE SQ SCH ×2 (08:15→21:23)
[2020-10-30 09:05] LABS: BASO % 0.3 % (0.0-1.0); EOS # 0.3 10^3/uL (0.0-0.5); EOS % 2.7 % (0.0-3.0); HEMATOCRIT 36.5 % (42.0-52.0); HEMOGLOBIN 12.3 g/dl (13.5-17.5); LYMPH # 0.9 10^3/uL (1.5-5.0); LYMPH % 9.3 % (24.0-44.0); MEAN CORPUSCULAR HEMOGLOBIN 30.1 pg (27.0-33.0); MEAN CORPUSCULAR HGB CONC 33.7 g/dl (32.0-36.5); MEAN CORPUSCULAR VOLUME 89.2 fl (80.0-96.0); MONO # 0.8 10^3/uL (0.0-0.8); MONO % 8.6 % (2.0-8.0); NEUTROPHILS # 7.5 10^3/uL (1.5-8.5); NEUTROPHILS % 78.2 % (36.0-66.0); PLATELET COUNT, AUTOMATED 348 10^3/uL (150-450); RED BLOOD COUNT 4.09 10^6/uL (4.30-6.10); WHITE BLOOD COUNT 9.7 10^3/uL (4.0-10.0)
[2020-10-30 09:37] LABS: ALBUMIN 2.8 GM/DL (3.2-5.2); BILIRUBIN,TOTAL 0.4 MG/DL (0.2-1.0); CALCIUM LEVEL 8.6 MG/DL (8.5-10.1); CREATININE FOR GFR 7.98 MG/DL (0.70-1.30); GLOMERULAR FILTRATION RATE 7.7 (>60); MAGNESIUM LEVEL 3.6 MG/DL (1.8-2.4); POTASSIUM SERUM 4.7 MEQ/L (3.5-5.1); TOTAL PROTEIN 6.8 GM/DL (6.4-8.2)
--- NOTE | 2020-10-30 13:45 | IPN ---
PROGRESS NOTE DATE: 10/30/2020 SUBJECTIVE: Mr. Dunn is seen and examined this morning in the hemodialysis unit receiving a treatment. His Leo catheter was removed yesterday. He reports he is voiding without any issues. His blood pressures remain above goal. His dialysis treatment was uneventful. Perm-A-Cath is in good use. He denies any shortness of breath. Denies any nausea or vomiting. He did have diarrhea after getting a dose of Kayexalate yesterday. OBJECTIVE: VITAL SIGNS: Temperature is 98.0, pulse is 75, respiratory rate is 20, blood pressure is 162/93, saturating 97% on room air. INTAKE AND OUTPUT: Intake yesterday was 1620, urine output yesterday was 1 liter, urine output thus far this morning was already 1.1 liters. Weight on the bed scale today is 100.5 kg which is decreased as compared to prior days. GENERAL: Patient is seen in the dialysis unit receiving his treatment, awake, alert and oriented x4, in good spirits, in no distress. HEENT: Extraocular muscles are intact. Tongue is moist. NECK: Supple. Jugular veins are not elevated. There is a tunneled Perm-A-Cath in the right chest wall presently in use. HEART: Regular S1 and S2. There is no dependent edema. There is no peripheral edema. Peripheral pulses are 2+ and palpable. LUNGS: Clear to auscultation bilaterally. No crackle or rales. ABDOMEN: Soft and nontender. GENITOURINARY: The catheter has been removed. NEUROLOGIC: He is oriented x4. He moves all four extremities on command. LABORATORY DATA: Sodium is 134, potassium is 4.7, bicarbonate is 21, BUN 101, creatinine 7.9. Magnesium is 3.6, AST is 97, ALT 198. Phosphorus level yesterday was 9.7. Hemoglobin 12.3, platelets were 348,000. INPATIENT MEDICATIONS: Reviewed by myself. I note he got a dose of Kayexalate yesterday. He was also started on Velphoro 500 mg p.o. with meals yesterday, the remainder of medications are all unchanged as compared with previous day. PROBLEMS: 1. Acute kidney injury, nonoliguric, in the setting of severe rhabdomyolysis. Patient continues to be hemodialysis dependent but we are dialyzing him for clearance only at this point given that his urine output has been adequate. We will continue to keep a close eye for ongoing signs of renal recovery. He continues to have a significant rise in interdialytic blood urea nitrogen and creatinine and will continue with dialysis for clearance purposes. Medication list is reviewed daily, patient is not receiving any nephrotoxics. Leo catheter was removed yesterday and the patient is voiding without issues to the urinal. 2. Hyperphosphatemia, despite dialysis the patient's phosphorus level has had ongoing elevation. He is on PhosLo and Velphoro now for phosphorus binder. I will get a repeat phosphorus level tomorrow. 3. Hypertension, uncontrolled. He is on amlodipine, hydralazine and labetalol. He is not suitable for FILIPPO or ARB at this time. We can add low dose beta bianca. 4. Hyperkalemia, it is improving. He did get a dose of Kayexalate yesterday, there is no need for any further Kayexalate. I think his potassium levels will be managed with renal diet and dialysis going forward until his renal function recovers. 5. Hypermagnesemia. His magnesium level has risen further. He is not receiving any magnesium containing medications. We will repeat the magnesium level tomorrow, it should improve with dialysis today. 6. Rhabdomyolysis. Creatine kinase levels have essentially normalized. Peak level was 200,000. Patient remains in renal failure and is hemodialysis dependent at this time and is weak and requiring assistance with movements and his going to most likely need acute rehabilitation and nephrology will continue to follow.
[2020-10-30 14:00] VITALS: BP 165/92
--- NOTE | 2020-10-30 14:27 | IPNPDOC ---
Text Note Date of Service The patient was seen on 10/30/20. NOTE Subjective: No any acute events overnight. Patient refused monoclonal antibody infusion. He was tested negative for Covid yesterday Objective: GENERAL APPEARANCE: NAD HEENT: no scleral icterus, no JVD, EOMI CARDIOVASCULAR: S1S2 LUNGS: CTA ABDOMEN: soft & not tender w palpation MUSCULOSKELETAL: no cyanosis, +1 swelling of lower extremities INTEGUMENT: no generalized pallor NEUROLOGICAL: cranial nerve function from 2-12 intact, follows commands, speech not dysarthric Assessment and plan Mr. Dunn is a 50-year-old male with a past medical history of hypertension, sleep apnea on CPAP, chronic back pain, obesity, presented to the ER on 10/19 for generalized and diffuse muscle aches and pains with weakness and difficulty ambulating. Patient has been working hard physically as he is a [place] but lately has been very finding very difficult to walk. Patient was recently admitted on 10/13/2020 for diarrhea found to be secondary to Campylobacter. He completed 3-day course of azithromycin. On arrival patient found to have a creatinine phosphokinase level of over 200,000 as well as a creatinine of 4.5. Patient was admitted for treatment of rhabdomyolysis and acute kidney injury. Nephrology team started dialysis. ANDREA nonoliguric Secondary to rhabdomyolysis Nephrology team follows him Rhabdomyolysis/hyperphosphatemia CPK trended down and normalized Continue dialysis Phosphorus binder Muscle pain/weakness Secondary to rhabdomyolysis Pain management Campylobacter diarrhea Resolved, completed 3 days course of azithromycin on prior admission Hypertension Continue amlodipine, hydralazine, labetalol with parameters We will regulate volume status with dialysis hopefully it will help with stabilization of blood pressure I changed hydralazine p.o. as needed to scheduled given increased blood pressure to 178/100 in the morning TASHA May use own CPAP Deconditioning PT/OT Hyperkalemia Resolved today Hypermagnesemia Will be regulated by dialysis Continue to monitor COVID-19 exposure Patient refused monoclonal antibody infusion. DVT prophylaxis with heparin 5000 units twice daily VS,Fishbone, I+O VS, Fishbone, I+O Laboratory Tests 10/30/20 08:37 Vital Signs Date Time Temp Pulse Resp B/P (MAP) Pulse Ox O2 Delivery O2 Flow Rate FiO2 10/30/20 13:55 161/86 10/30/20 08:14 116 10/30/20 05:27 98.0 20 97 NIPPV (BIPAP/CPAP) I&O- Last 24 Hours up to 6 AM 10/30/20 05:59 Intake Total 1770 ml Output Total 1450 ml Balance 320 ml NEHEMIAS DELAROSA DO Oct 30, 2020 14:27
[2020-10-30 21:19] VITALS: BP 173/94
[2020-10-30] MEDS: traMADol 50 MG TAB PO PRN (21:22)
[2020-10-30] MEDS: GABAPENTIN 100 MG CAP PO SCH (21:23)
[2020-10-31 05:40] VITALS: BP 163/91
[2020-10-31] MEDS: **hydrALAZINE** 50 MG TAB PO SCH ×3 (05:45→21:09)
[2020-10-31 07:29] LABS: BASO # 0.1 10^3/uL (0.0-0.2); BASO % 0.5 % (0.0-1.0); EOS # 0.2 10^3/uL (0.0-0.5); EOS % 2.1 % (0.0-3.0); HEMATOCRIT 36.9 % (42.0-52.0); HEMOGLOBIN 12.1 g/dl (13.5-17.5); LYMPH # 1.2 10^3/uL (1.5-5.0); LYMPH % 11.6 % (24.0-44.0); MEAN CORPUSCULAR HEMOGLOBIN 29.4 pg (27.0-33.0); MEAN CORPUSCULAR HGB CONC 32.8 g/dl (32.0-36.5); MEAN CORPUSCULAR VOLUME 89.8 fl (80.0-96.0); MONO # 0.8 10^3/uL (0.0-0.8); MONO % 8.3 % (2.0-8.0); NEUTROPHILS # 7.6 10^3/uL (1.5-8.5); NEUTROPHILS % 76.7 % (36.0-66.0); PLATELET COUNT, AUTOMATED 324 10^3/uL (150-450); RED BLOOD COUNT 4.11 10^6/uL (4.30-6.10)
[2020-10-31 07:56] LABS: ALBUMIN 2.8 GM/DL (3.2-5.2); BILIRUBIN,TOTAL 0.5 MG/DL (0.2-1.0); CALCIUM LEVEL 8.5 MG/DL (8.5-10.1); CREATININE FOR GFR 6.04 MG/DL (0.70-1.30); GLOMERULAR FILTRATION RATE 10.6 (>60); MAGNESIUM LEVEL 3.1 MG/DL (1.8-2.4); PHOSPHORUS LEVEL 8.2 MG/DL (2.5-4.9); POTASSIUM SERUM 4.1 MEQ/L (3.5-5.1); TOTAL PROTEIN 6.2 GM/DL (6.4-8.2)
[2020-10-31] MEDS: HEPARIN SOD (PORCINE) 5000UNITS/ML 1ML VIAL/SYRINGE SQ SCH ×2 (08:22→21:09)
[2020-10-31] MEDS: CALCIUM ACETATE 667MG GELCAP PO SCH ×3 (08:22→17:55)
[2020-10-31] MEDS: SUCROFERRIC OXYHYDROXIDE 500MG CHEW TAB (VELPHORO) PO SCH ×3 (08:22→17:55)
[2020-10-31 08:23] VITALS: BP 164/90
[2020-10-31] MEDS: DOCUSATE SODIUM 100MG CAPSULE PO SCH ×2 (08:23→21:00)
[2020-10-31] MEDS: LABETALOL 100MG TAB PO SCH ×3 (08:23→21:08)
--- NOTE | 2020-10-31 13:12 | IPN ---
PROGRESS NOTE DATE: 10/31/2020 SUBJECTIVE: Mr. Dunn is seen and examined this morning at the beside. He is in good spirits. He reports that the strength his arms feels "pretty much back to normal" but that his legs are still weak and that is requiring assistance getting up and has taken a few steps with the walker. Denies any shortness of breath. Urine output is nicely improving and in the past 24 hours he made more than 2 liters of urine. Hyperkalemia has not recurred. OBJECTIVE: VITAL SIGNS: Temperature is 98.5, pulse is 79, respiratory rate is 18, blood pressure is 163/91, saturating 97% on room air. INTAKE AND OUTPUT: Intake yesterday was 900. Urine output was 2.2 liters. Weight on the bed scale today is 97.5 kg which is decreased from prior. GENERAL: Patient is awake, alert and oriented x4, in good spirits. HEENT: Extraocular muscles are intact. Tongue is moist. NECK: Supple. Jugular veins are not elevated. There is a tunneled dialysis catheter in the right chest wall with a clean dressing. HEART: Heart sounds are regular, S1 and S2. LUNGS: Clear to auscultation bilaterally. No crackle or rale. ABDOMEN: Soft and nontender. There are bowel sounds. EXTREMITIES: Negative for clubbing, cyanosis or edema. He moves all four extremities on command. His weakest extremity is his right leg. Peripheral pulses are palpable. LABORATORY DATA: Sodium 136, potassium is 4.1, bicarbonate 24, BUN 62, creatinine 6.0, glucose is 79, phosphorus 8.2, magnesium 3.1, hemoglobin 12.1. INPATIENT MEDICATIONS: Reviewed by myself. No changes are noted over the past 24 hours. PROBLEMS: 1. Acute kidney injury, nonoliguric, in the setting of rhabdomyolysis. Patient remains hemodialysis dependent, however has had nice improvement in his urine output and we are optimistic that he will eventually have recovery of renal function. We will continue to monitor for signs of renal recovery. For the time being, he continues to have a rise in his interdialytic creatinine. Next dialysis will be November 01 and we will continue to follow the patient. I expect he will go to rehabilitation. 2. Hyperphosphatemia, phosphorus remains elevated but has improved. He is on both Velphoro and PhosLo and phosphorous level has gone from a peak of 13 down to 8.2 on the latest labs. We will repeat the phosphorus level again over the weekend and adjust the phosphorus binders if it remains elevated. 3. Hypertension, blood pressures remain uncontrolled. Systolic is 160s to 170s. He is on amlodipine, hydralazine and labetalol. I am going to increase the dose of the labetalol. 4. Weakness and debility. Patient continues with Physical Therapy and Occupational Therapy and is likely going to need acute rehabilitation. 5. Hypermagnesemia, it has improved with dialysis. Will repeat the magnesium level again tomorrow and he is also off of magnesium containing compounds.
[2020-10-31 13:18] VITALS: BP 163/90
--- NOTE | 2020-10-31 14:08 | IPNPDOC ---
Text Note Date of Service The patient was seen on 10/31/20. NOTE Subjective: No any acute events overnight. Objective: GENERAL APPEARANCE: NAD HEENT: no scleral icterus, no JVD, EOMI CARDIOVASCULAR: S1S2 LUNGS: CTA ABDOMEN: soft & not tender w palpation MUSCULOSKELETAL: no cyanosis, +1 swelling of lower extremities INTEGUMENT: no generalized pallor NEUROLOGICAL: cranial nerve function from 2-12 intact, follows commands, speech not dysarthric Assessment and plan Mr. Dunn is a 50-year-old male with a past medical history of hypertension, sleep apnea on CPAP, chronic back pain, obesity, presented to the ER on 10/19 for generalized and diffuse muscle aches and pains with weakness and difficulty ambulating. Patient has been working hard physically as he is a [place] but lately has been very finding very difficult to walk. Patient was recently admitted on 10/13/2020 for diarrhea found to be secondary to Campylobacter. He completed 3-day course of azithromycin. On arrival patient found to have a creatinine phosphokinase level of over 200,000 as well as a creatinine of 4.5. Patient was admitted for treatment of rhabdomyolysis and acute kidney injury. Nephrology team started dialysis. ANDREA nonoliguric Secondary to rhabdomyolysis Nephrology team follows him Rhabdomyolysis/hyperphosphatemia CPK trended down and normalized Continue dialysis Phosphorus binder Muscle pain/weakness Secondary to rhabdomyolysis Pain management Campylobacter diarrhea Resolved, completed 3 days course of azithromycin on prior admission Hypertension Continue amlodipine, hydralazine We will regulate volume status with dialysis hopefully it will help with stabilization of blood pressure I changed hydralazine p.o. as needed to scheduled given increased blood pressure to 178/100 in the morning I increased the dose of labetalol to 100 every every 8 hours TASHA May use own CPAP Deconditioning PT/OT Hyperkalemia Resolved today Hypermagnesemia Improved Continue to monitor COVID-19 exposure Patient refused monoclonal antibody infusion. DVT prophylaxis with heparin 5000 units twice daily VS,Fishbone, I+O VS, Fishbone, I+O Laboratory Tests 10/31/20 06:56 Vital Signs Date Time Temp Pulse Resp B/P (MAP) Pulse Ox O2 Delivery O2 Flow Rate FiO2 10/31/20 13:18 163/90 10/31/20 08:23 80 10/31/20 05:40 98.5 18 97 Room Air I&O- Last 24 Hours up to 6 AM 10/31/20 06:00 Intake Total 1060 ml Output Total 3425 ml Balance -2365 ml NEHEMIAS DELAROSA DO Oct 31, 2020 14:08
[2020-10-31 14:53] VITALS: BP 162/89
[2020-10-31 20:33] VITALS: BP 162/88
[2020-10-31] MEDS: GABAPENTIN 100 MG CAP PO SCH (21:09)
[2020-10-31] MEDS: traMADol 50 MG TAB PO PRN (21:10)
[2020-11-01] MEDS: LABETALOL 100MG TAB PO SCH ×3 (05:35→21:59)
[2020-11-01] MEDS: **hydrALAZINE** 50 MG TAB PO SCH ×3 (05:35→22:00)
[2020-11-01 05:43] VITALS: BP 159/89
[2020-11-01] MEDS ORDERED: SODIUM CHLORIDE 0.9% 1000ML IV PRN (07:45)
[2020-11-01] MEDS: CALCIUM ACETATE 667MG GELCAP PO SCH ×3 (07:57→17:16)
[2020-11-01] MEDS: DOCUSATE SODIUM 100MG CAPSULE PO SCH ×3 (07:57→21:57)
[2020-11-01] MEDS: SUCROFERRIC OXYHYDROXIDE 500MG CHEW TAB (VELPHORO) PO SCH ×3 (07:58→17:15)
[2020-11-01] MEDS: HEPARIN SOD (PORCINE) 5000UNITS/ML 1ML VIAL/SYRINGE SQ SCH ×2 (07:58→21:56)
[2020-11-01 09:27] LABS: BASO % 0.4 % (0.0-1.0); EOS # 0.3 10^3/uL (0.0-0.5); EOS % 2.7 % (0.0-3.0); HEMATOCRIT 34.5 % (42.0-52.0); HEMOGLOBIN 11.6 g/dl (13.5-17.5); LYMPH % 9.9 % (24.0-44.0); MEAN CORPUSCULAR HEMOGLOBIN 30.4 pg (27.0-33.0); MEAN CORPUSCULAR HGB CONC 33.6 g/dl (32.0-36.5); MEAN CORPUSCULAR VOLUME 90.3 fl (80.0-96.0); MONO # 0.8 10^3/uL (0.0-0.8); MONO % 7.5 % (2.0-8.0); NEUTROPHILS # 7.9 10^3/uL (1.5-8.5); NEUTROPHILS % 78.9 % (36.0-66.0); PLATELET COUNT, AUTOMATED 332 10^3/uL (150-450); RED BLOOD COUNT 3.82 10^6/uL (4.30-6.10); WHITE BLOOD COUNT 10.1 10^3/uL (4.0-10.0)
[2020-11-01 10:59] LABS: ALBUMIN 2.9 GM/DL (3.2-5.2); BILIRUBIN,TOTAL 0.5 MG/DL (0.2-1.0); CALCIUM LEVEL 8.9 MG/DL (8.5-10.1); CREATININE FOR GFR 7.89 MG/DL (0.70-1.30); GLOMERULAR FILTRATION RATE 7.8 (>60); MAGNESIUM LEVEL 3.3 MG/DL (1.8-2.4); POTASSIUM SERUM 3.9 MEQ/L (3.5-5.1)
[2020-11-01 14:00] VITALS: BP 150/84
--- NOTE | 2020-11-01 16:40 | IPN ---
PROGRESS NOTE DATE: 11/01/2020 SUBJECTIVE: Mr. Dunn is seen and examined this morning in the hemodialysis unit receiving his treatments. He has no new complaints. His dialysis is uneventful and improving urine output all week long up to 2.7 liters in the past 24 hours and I encouraged the patient for oral hydration. Laboratory studies continue to show ongoing rise in interdialytic creatinine signifying ongoing hemodialysis needs. The patient denies shortness of breath, nausea, vomiting, chest pain, diarrhea. OBJECTIVE: Temperature 97.4, pulse 75, respiratory rate 20, blood pressure 156/86, saturating 94% on room air. Intake yesterday was 1.3 liters. Urine output yesterday was 2.7 liters. Weight in the bed scale today is 94.6 kg. General: The patient is seen awake, alert, oriented, comfortable, receiving hemodialysis, in on distress, lying flat in bed. Extraocular muscles are intact. Tongue is moist. Jugular veins are not elevated. Heart sounds are regular. S1, S2, no murmur. No leg edema. Peripheral. Peripheral pulses are 2+. Tunnel hemodialysis catheter in the right chest wall is in use. Lungs are clear to auscultation. No crackles, rales or rhonchus. Abdomen is soft and nontender. Neurologic: He is oriented x3. He moves all four extremities on command. His strength has improved. LABORATORY DATA: Shows sodium 136, potassium 3.9, bicarbonate 25, BUN 191, creatinine 7.8, magnesium 3.3, AST 111, ALT 159, albumin 2.9, hemoglobin 11.6, white count 10.1. INPATIENT MEDICATIONS: Reviewed by myself and no changes are noted as compared to yesterday. PROBLEMS : 1. Nonoliguric acute kidney injury in the setting of rhabdomyolysis. The patient continues to have brisk rise in interdialytic blood urea nitrogen and serum creatinine. Despite improving urine output all week long, he continues to have hemodialysis needs, but we are optimistic about his chances for renal recovery. He was dialyzed today for clearance only. We no longer removed fluid with is dialysis treatments given his excellent urine output. His electrolytes and volume status are acceptable. His permacath hemostasis no issues and medication list is reviewed daily. The patient is not receiving any potentially nephrotoxic agents. 2. Hypermagnesemia. Magnesium level is noted to be persistently elevated in the low 3s. The patient is not receiving any potentially nephrotoxic agents. 3. Hypermagnesemia. Magnesemia level is noted to be persistently elevated in the low 3s. The patient is not on any magnesium containing compounds. It does improve with dialysis. 4. Hypertension. He is on amlodipine, labetalol and hydralazine. Blood pressures are reasonable. 5. Hyperphosphatemia. Repeat phosphorus level is ordered for tomorrow. The patient is on both PhosLo and Velphoro and on a renal diet. Phosphorus binders will be adjusted based upon tomorrow's level. 6. Rhabdomyolysis. The patient continues to have persistent elevation in AST and ALT and is still weak and debilitated and will most likely require acute rehabilitation. From a nephrology point of view, the patient can be transferred to the acute rehabilitation unit whenever the primary team sees fit.
--- NOTE | 2020-11-01 17:58 | IPNPDOC ---
Text Note Date of Service The patient was seen on 11/01/20. NOTE Subjective: No any acute events overnight. No fever or chills Objective: GENERAL APPEARANCE: NAD HEENT: no scleral icterus, no JVD, EOMI CARDIOVASCULAR: S1S2 LUNGS: CTA ABDOMEN: soft & not tender w palpation MUSCULOSKELETAL: no cyanosis, +1 swelling of lower extremities INTEGUMENT: no generalized pallor NEUROLOGICAL: cranial nerve function from 2-12 intact, follows commands, speech not dysarthric Assessment and plan Mr. Dunn is a 50-year-old male with a past medical history of hypertension, sleep apnea on CPAP, chronic back pain, obesity, presented to the ER on 10/19 for generalized and diffuse muscle aches and pains with weakness and difficulty ambulating. Patient has been working hard physically as he is a [place] but lately has been very finding very difficult to walk. Patient was recently admitted on 10/13/2020 for diarrhea found to be secondary to Campylobacter. He completed 3-day course of azithromycin. On arrival patient found to have a creatinine phosphokinase level of over 200,000 as well as a creatinine of 4.5. Patient was admitted for treatment of rhabdomyolysis and acute kidney injury. Nephrology team started dialysis. ANDREA nonoliguric Secondary to rhabdomyolysis Nephrology team follows him Rhabdomyolysis/hyperphosphatemia CPK trended down and normalized Continue dialysis Phosphorus binder Muscle pain/weakness Secondary to rhabdomyolysis Pain management Campylobacter diarrhea Resolved, completed 3 days course of azithromycin on prior admission Hypertension Continue amlodipine, hydralazine We will regulate volume status with dialysis hopefully it will help with stabilization of blood pressure I changed hydralazine p.o. as needed to scheduled given increased blood pressure to 178/100 in the morning I increased the dose of labetalol to 100 every every 8 hours Blood pressure improved today TASHA May use own CPAP Deconditioning PT/OT Hyperkalemia Resolved today Hypermagnesemia Continue to monitor Patient is not on any serum magnesium supplementation COVID-19 exposure Patient refused monoclonal antibody infusion. DVT prophylaxis with heparin 5000 units twice daily VS,Fishbone, I+O VS, Fishbone, I+O Laboratory Tests 11/01/20 08:58 Vital Signs Date Time Temp Pulse Resp B/P (MAP) Pulse Ox O2 Delivery O2 Flow Rate FiO2 11/01/20 14:00 98.5 77 19 150/84 (106) 95 Room Air I&O- Last 24 Hours up to 6 AM 11/01/20 06:00 Intake Total 1340 ml Output Total 2875 ml Balance -1535 ml NEHEMIAS DELAROSA DO Nov 01, 2020 17:58
[2020-11-01] MEDS: GABAPENTIN 100 MG CAP PO SCH (21:57)
[2020-11-01] MEDS: traMADol 50 MG TAB PO PRN (21:58)
[2020-11-01 22:34] VITALS: BP 139/84
[2020-11-02 06:17] VITALS: BP 145/84
[2020-11-02] MEDS: LABETALOL 100MG TAB PO SCH ×3 (06:34→21:33)
[2020-11-02] MEDS: **hydrALAZINE** 50 MG TAB PO SCH ×3 (06:34→21:32)
[2020-11-02 07:02] LABS: BASO % 0.4 % (0.0-1.0); EOS # 0.4 10^3/uL (0.0-0.5); EOS % 4.3 % (0.0-3.0); HEMATOCRIT 36.5 % (42.0-52.0); HEMOGLOBIN 12.2 g/dl (13.5-17.5); LYMPH # 1.2 10^3/uL (1.5-5.0); LYMPH % 11.9 % (24.0-44.0); MEAN CORPUSCULAR HEMOGLOBIN 30.7 pg (27.0-33.0); MEAN CORPUSCULAR HGB CONC 33.4 g/dl (32.0-36.5); MEAN CORPUSCULAR VOLUME 91.7 fl (80.0-96.0); MONO # 0.8 10^3/uL (0.0-0.8); NEUTROPHILS # 7.2 10^3/uL (1.5-8.5); NEUTROPHILS % 74.7 % (36.0-66.0); PLATELET COUNT, AUTOMATED 316 10^3/uL (150-450); RED BLOOD COUNT 3.98 10^6/uL (4.30-6.10); WHITE BLOOD COUNT 9.6 10^3/uL (4.0-10.0)
[2020-11-02 07:29] LABS: CREATININE FOR GFR 5.79 MG/DL (0.70-1.30); GLOMERULAR FILTRATION RATE 11.1 (>60); PHOSPHORUS LEVEL 7.2 MG/DL (2.5-4.9); POTASSIUM SERUM 4.1 MEQ/L (3.5-5.1)
[2020-11-02 07:30] LABS: ALBUMIN 3.1 GM/DL (3.2-5.2); BILIRUBIN,TOTAL 0.5 MG/DL (0.2-1.0); MAGNESIUM LEVEL 2.9 MG/DL (1.8-2.4); TOTAL PROTEIN 6.6 GM/DL (6.4-8.2)
[2020-11-02] MEDS: CALCIUM ACETATE 667MG GELCAP PO SCH ×3 (08:27→16:58)
[2020-11-02] MEDS: HEPARIN SOD (PORCINE) 5000UNITS/ML 1ML VIAL/SYRINGE SQ SCH ×2 (08:29→21:32)
[2020-11-02] MEDS: SUCROFERRIC OXYHYDROXIDE 500MG CHEW TAB (VELPHORO) PO SCH ×3 (08:29→16:58)
[2020-11-02] MEDS: DOCUSATE SODIUM 100MG CAPSULE PO SCH ×3 (08:30→21:33)
[2020-11-02 10:36] VITALS: BP 146/85
--- NOTE | 2020-11-02 15:45 | IPNPDOC ---
Text Note Date of Service The patient was seen on 11/02/20. NOTE Subjective: No any acute events overnight. His blood pressure under control and improved Objective: GENERAL APPEARANCE: NAD HEENT: no scleral icterus, no JVD, EOMI CARDIOVASCULAR: S1S2 LUNGS: CTA ABDOMEN: soft & not tender w palpation MUSCULOSKELETAL: no cyanosis, +1 swelling of lower extremities INTEGUMENT: no generalized pallor NEUROLOGICAL: cranial nerve function from 2-12 intact, follows commands, speech not dysarthric Assessment and plan Mr. Dunn is a 50-year-old male with a past medical history of hypertension, sleep apnea on CPAP, chronic back pain, obesity, presented to the ER on 10/19 for generalized and diffuse muscle aches and pains with weakness and difficulty ambulating. Patient has been working hard physically as he is a [place] but lately has been very finding very difficult to walk. Patient was recently admitted on 10/13/2020 for diarrhea found to be secondary to Campylobacter. He completed 3-day course of azithromycin. On arrival patient found to have a creatinine phosphokinase level of over 200,000 as well as a creatinine of 4.5. Patient was admitted for treatment of rhabdomyolysis and acute kidney injury. Nephrology team started dialysis. ANDREA nonoliguric Secondary to rhabdomyolysis Nephrology team follows him Rhabdomyolysis/hyperphosphatemia CPK trended down and normalized Continue dialysis Phosphorus binder Muscle pain/weakness Secondary to rhabdomyolysis Pain management Campylobacter diarrhea Resolved, completed 3 days course of azithromycin on prior admission Hypertension Continue amlodipine, hydralazine We will regulate volume status with dialysis hopefully it will help with stabilization of blood pressure I changed hydralazine p.o. as needed to scheduled given increased blood pressure to 178/100 in the morning I increased the dose of labetalol to 100 every every 8 hours Blood pressure improved TASHA May use own CPAP Deconditioning PT/OT Hyperkalemia Resolved today Hypermagnesemia Continue to monitor Patient is not on any serum magnesium supplementation COVID-19 exposure Patient refused monoclonal antibody infusion. DVT prophylaxis with heparin 5000 units twice daily VS,Fishbone, I+O VS, Fishbone, I+O Laboratory Tests 11/02/20 06:08 Vital Signs Date Time Temp Pulse Resp B/P (MAP) Pulse Ox O2 Delivery O2 Flow Rate FiO2 11/02/20 13:40 82 138/79 11/02/20 06:17 98.1 18 98 Room Air I&O- Last 24 Hours up to 6 AM 11/02/20 05:59 Intake Total 820 ml Output Total 1850 ml Balance -1030 ml NEHEMIAS DELAROSA DO Nov 02, 2020 15:45
[2020-11-02 16:00] VITALS: BP 138/79
[2020-11-02] MEDS: GABAPENTIN 100 MG CAP PO SCH (21:33)
[2020-11-02 22:48] VITALS: BP 164/84
--- NOTE | 2020-11-02 23:09 | IPN ---
PROGRESS NOTE DATE: 11/02/2020 SUBJECTIVE: Mr. Dunn is seen and examined this morning at the bedside. He is in good spirits. He continues to note improving urine output. He was dialyzed yesterday for clearance only. There have been no issues with his dialysis treatment. He is looking forward to starting acute rehabilitation. OBJECTIVE: Vital signs: Temperature 98.1, pulse 72, respiratory rate 18, blood pressure 145/84, saturation 98% on room air. Intake yesterday was 1.1 liters. Urine output yesterday was 2.8 liters. Weight in the bed scale today is 92.7 kg. General: The patient is seen awake, alert, oriented, comfortable in no distress. Extraocular muscles are intact. Tongue is moist. Neck is supple. Jugular veins are not elevated. Tunnel hemodialysis catheter in the right chest wall has a clean dressing. Heart sounds are regular, S1, S2. There is absolutely no peripheral edema. No dependent edema. Lungs are clear to auscultation bilaterally. No crackle, rale or rhonchus. Abdomen is soft and nontender. Neurologic: The muscle strength in his upper extremities has improved and is better than the muscle strength in his lower extremities. LABORATORY: White count 9.6, hemoglobin 12.2, platelets 316. Sodium 136, potassium 4.1, bicarbonate 25, BUN 63, creatinine 5.7, magnesium 2.9, phosphorus 7.2. INPATIENT MEDICATIONS: Reviewed by myself, there are no changes over the past 24 hours. PROBLEMS: 1. Nonoliguric acute renal failure in the setting of rhabdomyolysis over the past week. The patient's daily urine output has increased from one liter a day up to just shy of 3 liters a day. However, the patient continues to require hemodialysis for clearance only at this point. We will continue to keep a close eye for further signs of renal recovery and will discontinue dialysis at the appropriate time. I am optimistic of the patient's probability of renal recovery. Please void all nephrotoxic medications. Medication list is reviewed daily 2. Hyperphosphatemia. The patient's phosphorus level is still no goal, but it is improving from a peak level of 13.0 down to 7.2 on the latest labs. He is on both Velphoro and PhosLo and I am making no changes today. 3. Hypermagnesemia. The patient is not on any magnesium containing medications. He is on a renal diet. His magnesium level is slowly coming down and improving with hemodialysis. 4. Rhabdomyolysis and weakness, particularly of the lower extremities. The patient is going to require acute rehabilitation. Nephrology will continue to see him and keep watch for signs of renal recovery and continued dialysis until that point arrives.
[2020-11-03] MEDS: HEPARIN SOD (PORCINE) 5000UNITS/ML 1ML VIAL/SYRINGE SQ SCH ×2 (05:55→21:18)
[2020-11-03] MEDS: SUCROFERRIC OXYHYDROXIDE 500MG CHEW TAB (VELPHORO) PO SCH ×3 (05:56→17:36)
[2020-11-03] MEDS: LABETALOL 100MG TAB PO SCH ×3 (05:56→21:20)
[2020-11-03] MEDS: **hydrALAZINE** 50 MG TAB PO SCH ×3 (05:56→21:20)
[2020-11-03] MEDS: CALCIUM ACETATE 667MG GELCAP PO SCH ×3 (05:56→17:37)
[2020-11-03] MEDS: DOCUSATE SODIUM 100MG CAPSULE PO SCH ×2 (05:58→21:00)
[2020-11-03] MEDS ORDERED: SODIUM CHLORIDE 0.9% 1000ML IV PRN (06:00)
[2020-11-03 06:46] VITALS: BP 159/86
[2020-11-03 07:08] LABS: BASO # 0.1 10^3/uL (0.0-0.2); BASO % 0.5 % (0.0-1.0); EOS # 0.5 10^3/uL (0.0-0.5); EOS % 5.6 % (0.0-3.0); HEMATOCRIT 37.1 % (42.0-52.0); HEMOGLOBIN 12.1 g/dl (13.5-17.5); LYMPH # 1.2 10^3/uL (1.5-5.0); LYMPH % 12.6 % (24.0-44.0); MEAN CORPUSCULAR HEMOGLOBIN 29.9 pg (27.0-33.0); MEAN CORPUSCULAR HGB CONC 32.6 g/dl (32.0-36.5); MEAN CORPUSCULAR VOLUME 91.6 fl (80.0-96.0); MONO # 0.7 10^3/uL (0.0-0.8); MONO % 7.2 % (2.0-8.0); NEUTROPHILS % 73.6 % (36.0-66.0); PLATELET COUNT, AUTOMATED 323 10^3/uL (150-450); RED BLOOD COUNT 4.05 10^6/uL (4.30-6.10); WHITE BLOOD COUNT 9.5 10^3/uL (4.0-10.0)
[2020-11-03 07:33] LABS: ALBUMIN 3.5 GM/DL (3.2-5.2); BILIRUBIN,TOTAL 0.5 MG/DL (0.2-1.0); CALCIUM LEVEL 9.3 MG/DL (8.5-10.1); CREATININE FOR GFR 7.16 MG/DL (0.70-1.30); GLOMERULAR FILTRATION RATE 8.7 (>60); POTASSIUM SERUM 4.2 MEQ/L (3.5-5.1); TOTAL PROTEIN 7.2 GM/DL (6.4-8.2)
[2020-11-03 14:00] VITALS: BP 156/89
--- NOTE | 2020-11-03 15:36 | IPNPDOC ---
Text Note Date of Service The patient was seen on 11/03/20. NOTE Subjective: No any acute events overnight. No fever or chills overnight Objective: GENERAL APPEARANCE: NAD HEENT: no scleral icterus, no JVD, EOMI CARDIOVASCULAR: S1S2 LUNGS: CTA ABDOMEN: soft & not tender w palpation MUSCULOSKELETAL: no cyanosis, +1 swelling of lower extremities INTEGUMENT: no generalized pallor NEUROLOGICAL: cranial nerve function from 2-12 intact, follows commands, speech not dysarthric Assessment and plan Mr. uDnn is a 50-year-old male with a past medical history of hypertension, sleep apnea on CPAP, chronic back pain, obesity, presented to the ER on 10/19 for generalized and diffuse muscle aches and pains with weakness and difficulty ambulating. Patient has been working hard physically as he is a [place] but lately has been very finding very difficult to walk. Patient was recently admitted on 10/13/2020 for diarrhea found to be secondary to Campylobacter. He completed 3-day course of azithromycin. On arrival patient found to have a c reatinine phosphokinase level of over 200,000 as well as a creatinine of 4.5. Patient was admitted for treatment of rhabdomyolysis and acute kidney injury. Nephrology team started dialysis. ANDREA nonoliguric Secondary to rhabdomyolysis Nephrology team follows him Rhabdomyolysis/hyperphosphatemia CPK trended down and normalized Continue dialysis Phosphorus binder Muscle pain/weakness Secondary to rhabdomyolysis Pain management Campylobacter diarrhea Resolved, completed 3 days course of azithromycin on prior admission Hypertension Continue amlodipine, hydralazine We will regulate volume status with dialysis hopefully it will help with stabilization of blood pressure I changed hydralazine p.o. as needed to scheduled given increased blood pressure to 178/100 in the morning I increased the dose of labetalol to 100 every every 8 hours Blood pressure improved TASHA May use own CPAP Deconditioning PT/OT Hyperkalemia Resolved today Hypermagnesemia Continue to monitor Improved today COVID-19 exposure Patient refused monoclonal antibody infusion. DVT prophylaxis with heparin 5000 units twice daily VS,Fishbone, I+O VS, Fishbone, I+O Laboratory Tests 11/03/20 06:32 Vital Signs Date Time Temp Pulse Resp B/P (MAP) Pulse Ox O2 Delivery O2 Flow Rate FiO2 11/03/20 14:01 68 154/87 11/03/20 14:00 98.5 18 97 Room Air I&O- Last 24 Hours up to 6 AM 11/03/20 06:00 Intake Total 1700 ml Output Total 2775 ml Balance -1075 ml NEHEMIAS DELAROSA DO Nov 03, 2020 15:36
--- NOTE | 2020-11-03 21:08 | IPN ---
NEPHROLOGY PROGRESS NOTE DATE: 10/19/2020 SUBJECTIVE: Mr. Dunn is seen this morning at his bedside. He is being dialyzed again today. The patient has acute renal failure due to severe rhabdomyolysis. His urine output has improved, however his BUN and creatinine are still increasing. His electrolytes have been stable. The patient denies any nausea, vomiting, dyspnea or chest pain. His muscle strength is gradually improving, however he is still unable to walk and is looking forward to acute rehab. OBJECTIVE: PHYSICAL EXAMINATION: VITAL SIGNS: Temperature 98.2 degrees Fahrenheit, heart rate 78 per minute, respiratory rate 18 per minute, blood pressure 159/86 mm of mercury and oxygen saturation is 97% on room air. INTAKE AND OUTPUT: Intake and output records from the last 24 hours revealed a total intake of 1,160 which is probably under recorded. His urine output was 2,575 mL. WEIGHT ON THE BED SCALE: Today he weighed about the same as yesterday at 92.5 kg. HEENT: His head is atraumatic. NECK: Supple and without JVD or thyroid enlargement. CHEST: Dialysis catheter is intact in the right upper chest. HEART: Regular. LUNGS: Clear to auscultation. ABDOMEN: Soft and nontender and bowel sounds are normal. EXTREMITIES: Without any cyanosis or clubbing. NEUROLOGICAL: Awake, alert, and oriented x3. LABORATORY STUDIES: His WBC count is 9.5, hemoglobin 12.1 and hematocrit 37.1, platelet count 323. Sodium 135, potassium 4.2, CO2 24, BUN 87 and creatinine 7.16. Yesterday his BUN was 63 and creatinine 5.79. Calcium level 9.3 and magnesium 3.0. PROBLEMS: 1. Acute renal failure related to rhabdomyolysis - This patient is non-oliguric, however BUN and creatinine are still increased compared with yesterday. He is being dialyzed today. We will continue to monitor his renal function on a daily basis. 2. Rhabdomyolysis - The patient had severe rhabdomyolysis with CPK levels peaking about 300,000. His CPK level now has come down to normal range. His muscle strength is gradually improving. 3. Hypertension - blood pressure has been reasonably well controlled on the current antihypertensive medications. He remains on Labetalol 100 mg every 8 hours, Hydralazine 50 mg every 8 hours and Amlodipine 10 mg daily. 4. Hyperphosphatemia - The patient had severe hyperphosphatemia and is now on phosphate binder with calcium Acetate 2 tablets three times daily with meals. 5. Weakness and difficulty walking - The patient is waiting for a decision about acute rehab.
[2020-11-03] MEDS: traMADol 50 MG TAB PO PRN (21:19)
[2020-11-03] MEDS: GABAPENTIN 100 MG CAP PO SCH (21:20)
[2020-11-03 23:20] VITALS: BP 156/88
[2020-11-04] MEDS: **hydrALAZINE** 50 MG TAB PO SCH (06:27)
[2020-11-04] MEDS: LABETALOL 100MG TAB PO SCH (06:27)
[2020-11-04 06:32] LABS: BASO # 0.1 10^3/uL (0.0-0.2); BASO % 0.6 % (0.0-1.0); EOS # 0.7 10^3/uL (0.0-0.5); EOS % 6.7 % (0.0-3.0); HEMATOCRIT 35.5 % (42.0-52.0); HEMOGLOBIN 11.7 g/dl (13.5-17.5); LYMPH # 1.6 10^3/uL (1.5-5.0); LYMPH % 15.3 % (24.0-44.0); MONO # 0.9 10^3/uL (0.0-0.8); MONO % 8.6 % (2.0-8.0); NEUTROPHILS # 6.9 10^3/uL (1.5-8.5); NEUTROPHILS % 68.2 % (36.0-66.0); PLATELET COUNT, AUTOMATED 258 10^3/uL (150-450); WHITE BLOOD COUNT 10.1 10^3/uL (4.0-10.0)
[2020-11-04 06:43] VITALS: BP 158/90
[2020-11-04 07:00] LABS: ALBUMIN 3.3 GM/DL (3.2-5.2); BILIRUBIN,TOTAL 0.5 MG/DL (0.2-1.0); CALCIUM LEVEL 9.7 MG/DL (8.5-10.1); CREATININE FOR GFR 5.12 MG/DL (0.70-1.30); GLOMERULAR FILTRATION RATE 12.8 (>60); MAGNESIUM LEVEL 2.6 MG/DL (1.8-2.4); POTASSIUM SERUM 3.8 MEQ/L (3.5-5.1); TOTAL PROTEIN 7.6 GM/DL (6.4-8.2)
[2020-11-04] MEDS: DOCUSATE SODIUM 100MG CAPSULE PO SCH (09:00)
[2020-11-04 09:20] VITALS: BP 158/90
[2020-11-04] MEDS: SUCROFERRIC OXYHYDROXIDE 500MG CHEW TAB (VELPHORO) PO SCH ×2 (09:20→12:33)
[2020-11-04] MEDS: HEPARIN SOD (PORCINE) 5000UNITS/ML 1ML VIAL/SYRINGE SQ SCH (09:20)
[2020-11-04] MEDS: CALCIUM ACETATE 667MG GELCAP PO SCH ×2 (09:20→12:33)
[2020-11-04] MEDS ORDERED: HYDR50TA PO (11:08)
[2020-11-04] MEDS ORDERED: LABE100T4 PO (11:08)
--- NOTE | 2020-11-04 11:42 | IPNPDOC ---
Text Note Date of Service The patient was seen on 11/04/20. 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 Patient st ates his stamina is getting much better when he was able to get up with the help of assistance and sit at the bedside and pleased to have his breakfast. He is excited about moving to the rehab unit and understands that his recovery is going to take at least 1 or 2 weeks. No overnight events reported by the nurse. OBJECTIVE: GENERAL: Patient is awake alert oriented x3, sitting by the bedside under no acute distress HEENT: Atraumatic, normocephalic, EOMI, PERRLA, moist mucous membranes, no sc leral icterus or pallor Cardiovascular: Heart sounds normal, regular rate rhythm. No murmurs rubs or gallops heard. PULMONARY: Chest is clear to auscultation bilaterally, no wheezes or rhonchi or crackles heard. ABDOMEN: Obese, nontender, nondistended, bowel sounds normal. No organomegaly. NEURO: Patient is generally weak muscle weakness 2/5 secondary to weakness, sensations intact ASSESSMENT AND PLAN: 1 Non- oliguric renal failure secondary to acute rhabdomyolysis: Patient's numbers are getting better today her his CPK level is down. Creatinine is stable. Patient is making appropriate amount of urine about 1025 mL in the past 8 hours. Continues to be hemodialysis dependent. Weakness persists. Continues to have physical therapy. However reports some improvement. Patient is able to prop himself up with assistance but has mild difficulty walking. Good oral intake. Patient is going to be transferred to acute rehab today for further intense physical therapy however nephrology will keep an eye on him continue him on dialysis until his kidney function improves almost to baseline We are optimistic for the patient not bleeding dialysis permanently. However he still has a long way to go. Acute tubular necrosis will require 1 or 2 weeks for the kidneys to recover appropriately. No other changes in his management today. 2. Hypertension: -Blood pressure levels remain higher . Continue blood pressure medications. Including amlodipine and as needed hydralazine. 3. Hyperphosphatemia: -Patient continues to be on PhosLo with meals. VS,Fishbone, I+O VS, Fishbone, I+O Laboratory Tests 11/04/20 06:11 Vital Signs Date Time Temp Pulse Resp B/P (MAP) Pulse Ox O2 Delivery O2 Flow Rate FiO2 11/04/20 09:20 65 158/90 11/04/20 06:43 97.4 18 99 Room Air I&O- Last 24 Hours up to 6 AM 11/04/20 06:00 Intake Total 1310 ml Output Total 2770 ml Balance -1460 ml GME ATTESTATION GME ATTESTATION My faculty preceptor for this patient encounter was physically present during the encounter and was fully available. All aspects of the patient interview, examination, medical decision making process, and medical care plan development were reviewed and approved by the faculty preceptor. The faculty preceptor is aware and concurs with the plan as stated in the body of this note and will attest to such by his/her cosignature. Evan Cortes MD Nov 04, 2020 11:41
[2020-11-04 14:00] VITALS: BP 155/89
--- NOTE | 2020-11-04 15:31 | DS.PDOC ---
Discharge Summary General Date of Admission Oct 19, 2020 at 09:30 Date of Discharge 11/04/20 Discharge Summary PROCEDURES PERFORMED DURING STAY: [None]. ADMITTING DIAGNOSES: ANDREA nonoliguric Rhabdomyolysis/hyperphosphatemia Muscle pain/weakness Campylobacter diarrhea Hypertension TASHA Deconditioning Hyperkalemia Hypermagnesemia COVID-19 exposure DISCHARGE DIAGNOSES: ANDREA nonoliguric Rhabdomyolysis/hyperphosphatemia Muscle pain/weakness Campylobacter diarrhea Hypertension TASHA Deconditioning Hyperkalemia Hypermagnesemia COVID-19 exposure COMPLICATIONS/CHIEF COMPLAINT: Acute Kidney Injury Rhabdomyolysis. HISTORY OF PRESENT ILLNESS: Mr. Dunn is a 50-year-old male with a past medical history of hypertension, sleep apnea on CPAP, chronic back pain, obesity, presented to the ER on 10/19 for generalized and diffuse muscle aches and pains with weakness and difficulty ambulating. Patient has been working hard physically as he is a [place] but lately has been very finding very difficult to walk. Patient was recently admitted on 10/13/2020 for diarrhea found to be secondary to Campylobacter. He completed 3-day course of azithromycin. On arrival patient found to have a creatinine phosphokinase level of over 200,000 as well as a creatinine of 4.5. Patient was admitted for treatment of rhabdomyolysis and acute kidney injury. Nephrology team started dialysis. HOSPITAL COURSE: During the hospital stay the following issues addressed ANDREA nonoliguric During hospital stay patient received dialysis treatment. His kidney function continues to slowly improving. He developed severe kidney injury secondary to rhabdomyolysis Nephrology team follows him. Rhabdomyolysis/hyperphosphatemia CPK trended down and normalized Continue dialysis Patient received phosphorus binder Muscle pain/weakness Secondary to rhabdomyolysis Pain management Improved Campylobacter diarrhea Resolved, completed 3 days course of azithromycin on prior admission Hypertension Continue amlodipine, hydralazine I increased the dose of labetalol to 100 every every 8 hours Blood pressure improved DISCHARGE MEDICATIONS: Please see below. ALLERGIES: Please see below. PHYSICAL EXAMINATION ON DISCHARGE: VITAL SIGNS: Please see below. GENERAL APPEARANCE: NAD HEENT: no scleral icterus, no JVD, EOMI CARDIOVASCULAR: S1S2 LUNGS: CTA ABDOMEN: soft & not tender w palpation MUSCULOSKELETAL: no cyanosis, +1 swelling of lower extremities INTEGUMENT: no generalized pallor NEUROLOGICAL: cranial nerve function from 2-12 intact, follows commands, speech not dysarthric LABORATORY DATA: Please see below. PROGNOSIS: fair ACTIVITY: [As tolerated]. DIET: Renal DISPOSITION: 62 D/T Rehab Facility. ITEMS TO FOLLOWUP ON ON OUTPATIENT: Follow-up with cloth hauler and PCP DISCHARGE CONDITION: [Stable]. TIME SPENT ON DISCHARGE: 40minutes. Vital Signs/I&Os Vital Signs Date Time Temp Pulse Resp B/P (MAP) Pulse Ox O2 Delivery O2 Flow Rate FiO2 11/04/20 14:00 98.3 76 18 155/89 (111) 98 Room Air I&O- Last 24 Hours up to 6 AM 11/04/20 06:00 Intake Total 1310 ml Output Total 2770 ml Balance -1460 ml Laboratory Data Labs 24H Laboratory Tests 2 11/04/20 06:11: Immature Granulocyte % (Auto) 0.6, Neutrophils (%) (Auto) 68.2H, Lymphocytes (%) (Auto) 15.3L, Monocytes (%) (Auto) 8.6H, Eosinophils (%) (Auto) 6.7H, Basophils (%) (Auto) 0.6, Neutrophils # (Auto) 6.9, Lymphocytes # (Auto) 1.6, Monocytes # (Auto) 0.9H, Eosinophils # (Auto) 0.7H, Basophils # (Auto) 0.1, Nucleated Red Blood Cells % (auto) 0.0, Anion Gap 9, Glomerular Filtration Rate 12.8L, Calcium Level 9.7, Magnesium Level 2.6H, Total Bilirubin 0.5, Aspartate Amino Transf (AST/SGOT) 86H, Alanine Aminotransferase (ALT/SGPT) 152H, Alkaline Phosphatase 97, Total Protein 7.6, Albumin 3.3, Albumin/Globulin Ratio 0.8 CBC/BMP Laboratory Tests 11/04/20 06:11 Discharge Medications Scheduled Amlodipine Besylate (Amlodipine Besylate) 10 Mg Tab, 10 MG PO DAILY, (Reported) Folic Acid/Vit B Complex and C (Super B Complex Tablet) 400 Mcg Tablet, 1 TAB PO DAILY, (Reported) Gabapentin (Gabapentin) 300 Mg Capsule, 600 MG PO TID, (Reported) Glucosa Schwarz 2Kcl/Chondroitin Schwarz (Glucosamine & Chondroitin Cap) 1 Each Capsule, 1 CAP PO DAILY, (Reported) Hydralazine HCl (Hydralazine HCl) 50 Mg Tablet, 50 MG PO Q8H Labetalol HCl (Labetalol HCl) 100 Mg Tablet, 100 MG PO Q8H Multivitamins (Thera M Plus Tablet) 1 Each Tablet, 1 TAB PO DAILY, (Reported) Allergies Coded Allergies: No Known Allergies (Unverified , 03/04/14) NEHEMIAS DELAROSA DO Nov 04, 2020 15:31
== END 2020-11-04 14:45 | DRG 674 ==
LOC: M ED 05:11 → M ED INP 09:30 → ENRESERV 09:56 → M MS5PR 11:34
PROVIDERS: ADMIT Internal Medicine Nephrology; ATTEND Internal Medicine
PROC: 02HV33Z Insertion of Infusion Device into Superior Vena Cava, Percutaneous Approach (ICD-10-PCS; 2020-10-21)
PROC: 0JH63XZ Insertion of Tunneled Vascular Access Device into Chest Subcutaneous Tissue and Fascia, Percutaneous Approach (ICD-10-PCS; principal; 2020-10-21 14:00)
PROC: 5A1D70Z Performance of Urinary Filtration, Intermittent, Less than 6 Hours Per Day (ICD-10-PCS; 2020-10-23)
DX: N17.0 Acute kidney failure with tubular necrosis (principal); M62.82 Rhabdomyolysis; E87.1 Hypo-osmolality and hyponatremia; E87.2 Acidosis; R82.1 Myoglobinuria; I10 Essential (primary) hypertension; G47.33 Obstructive sleep apnea (adult) (pediatric); E66.9 Obesity, unspecified; F17.290 Nicotine dependence, other tobacco product, uncomplicated; M54.2 Cervicalgia; E83.51 Hypocalcemia; E83.39 Other disorders of phosphorus metabolism; E87.5 Hyperkalemia; E83.41 Hypermagnesemia; R53.1 Weakness; R26.2 Difficulty in walking, not elsewhere classified; Z68.36 Body mass index [BMI] 36.0-36.9, adult; Z79.899 Other long term (current) drug therapy; Z20.822 Contact with and (suspected) exposure to COVID-19

== ENCOUNTER 2020-11-04 12:42 | Inpatient (IN) | payer OTHER ==
[~2020-11-04] VITALS: Ht 175.3 cm; Wt 83.3 kg
[~2020-11-04 12:42] MED LIST changes: +GABA-282 PO; +GLUC500C37 PO; +HYDR50TA PO; +LABE100T4 PO; +SUPETAB44 PO; +VITMTA PO
[2020-11-04 14:47] VITALS: BP 160/90
[2020-11-04] MEDS ORDERED: BISACODYL 10 MG SUPP PR PRN (16:25)
[2020-11-04] MEDS ORDERED: MIRALAX *UNIT DOSE* 17GM PACKET PO PRN (16:25)
[2020-11-04] MEDS: CALCIUM ACETATE 667MG GELCAP PO SCH (18:05)
[2020-11-04] MEDS: SUCROFERRIC OXYHYDROXIDE 500MG CHEW TAB (VELPHORO) PO SCH (18:05)
[2020-11-04] MEDS: GABAPENTIN 100 MG CAP PO SCH (20:58)
[2020-11-04] MEDS: DOCUSATE SODIUM 100MG CAPSULE PO SCH (20:59)
[2020-11-04] MEDS: traMADol 50 MG TAB PO PRN (20:59)
[2020-11-04] MEDS: SENNA 8.6 MG TAB (SENOKOT) PO SCH (20:59)
[2020-11-04] MEDS: COMBIVENT RESPIMAT 100-20MCG INHALER 4GM INH SCH (21:00)
[2020-11-04] MEDS: HEPARIN SOD (PORCINE) 5000UNITS/ML 1ML VIAL/SYRINGE SC SCH (21:00)
[2020-11-04] MEDS: REMEDY PHYTOPLEX Z-GUARD PASTE 113GM TUBE (FROM STOREROOM PRODUCT) TOP SCH (21:00)
[2020-11-04 21:06] VITALS: BP 174/82
[2020-11-04] MEDS: **hydrALAZINE** 50 MG TAB PO SCH (21:10)
[2020-11-04 22:00] VITALS: BP 160/80
[2020-11-04] MEDS: LABETALOL 100MG TAB PO SCH (23:20)
[2020-11-05 06:00] VITALS: BP 181/91
[2020-11-05] MEDS: LABETALOL 100MG TAB PO SCH ×3 (06:06→21:48)
[2020-11-05 06:07] VITALS: BP 162/90
[2020-11-05] MEDS: **hydrALAZINE** 50 MG TAB PO SCH (06:07)
[2020-11-05] MEDS: COMBIVENT RESPIMAT 100-20MCG INHALER 4GM INH SCH ×3 (07:13→19:38)
[2020-11-05 07:56] LABS: BASO % 0.4 % (0.0-1.0); EOS # 0.7 10^3/uL (0.0-0.5); EOS % 7.8 % (0.0-3.0); HEMATOCRIT 37.9 % (42.0-52.0); HEMOGLOBIN 12.7 g/dl (13.5-17.5); LYMPH # 1.2 10^3/uL (1.5-5.0); LYMPH % 13.1 % (24.0-44.0); MEAN CORPUSCULAR HEMOGLOBIN 30.1 pg (27.0-33.0); MEAN CORPUSCULAR HGB CONC 33.5 g/dl (32.0-36.5); MEAN CORPUSCULAR VOLUME 89.8 fl (80.0-96.0); MONO # 0.6 10^3/uL (0.0-0.8); MONO % 6.8 % (2.0-8.0); NEUTROPHILS # 6.7 10^3/uL (1.5-8.5); NEUTROPHILS % 71.4 % (36.0-66.0); PLATELET COUNT, AUTOMATED 308 10^3/uL (150-450); RED BLOOD COUNT 4.22 10^6/uL (4.30-6.10); WHITE BLOOD COUNT 9.4 10^3/uL (4.0-10.0)
[2020-11-05 08:14] LABS: ALBUMIN 3.9 GM/DL (3.2-5.2); BILIRUBIN,TOTAL 0.9 MG/DL (0.2-1.0); CALCIUM LEVEL 9.9 MG/DL (8.5-10.1); CREATININE FOR GFR 5.87 MG/DL (0.70-1.30); POTASSIUM SERUM 4.2 MEQ/L (3.5-5.1); TOTAL PROTEIN 7.7 GM/DL (6.4-8.2)
[2020-11-05] MEDS: SUCROFERRIC OXYHYDROXIDE 500MG CHEW TAB (VELPHORO) PO SCH ×3 (08:38→18:03)
[2020-11-05] MEDS: HEPARIN SOD (PORCINE) 5000UNITS/ML 1ML VIAL/SYRINGE SC SCH ×2 (08:38→20:31)
[2020-11-05] MEDS: CALCIUM ACETATE 667MG GELCAP PO SCH ×3 (08:38→18:03)
[2020-11-05] MEDS: PANTOPRAZOLE 40MG TAB (PROTONIX) PO SCH (08:38)
[2020-11-05] MEDS: REMEDY PHYTOPLEX Z-GUARD PASTE 113GM TUBE (FROM STOREROOM PRODUCT) TOP SCH ×3 (08:40→19:49)
[2020-11-05] MEDS: DOCUSATE SODIUM 100MG CAPSULE PO SCH ×2 (09:00→19:48)
--- NOTE | 2020-11-05 09:41 | HPEPDOC ---
Cmm Operator Note DATE OF ADMISSION: 11-04-20 DATE OF SERVICE: 11-05-20 TIME OF ADMISSION: Please refer to physician's admission order. SOURCE OF ADMISSION INFORMATION: [facility] record and patient CHIEF COMPLAINT: weakness HISTORY OF PRESENT ILLNESS: 50M pmh HTN, sleep apnea, chronic low back pain, obesity, with a recent diagnosis of campylobacter diarrhea with worsening weakness and pain with walking presented to [facility] ED on [id number] where he was found to have a CPK of >200,000, elevated LFTs, and a creatinine of 4.5. He was diagnosed with ANDREA with rhabdomyolysis. He was given IVF, however he had oliguria and shortness of breath with electrolyte abnormalities and it was determined that he needed to be placed on dialysis. Neurology was consulted to evaluate for worsening lower extremity weakness and it was deemed to be due to rhabdomyolysis and not Guill[place] syndrome given no sensory complaints. Patient had elevated blood pressures which requiring medications adjustment, persistent mobility and ADL impairments below his prior level of function and deemed medically appropriate for discharge to ARU on 11-04-20. REVIEW OF SYSTEMS: The following is a completed review of systems and has been reviewed. Review of systems otherwise unremarkable. PAIN: Patient self reports leg cramping EYES: No recent vision changes EARS, NOSE, & THROAT: No throat pain, or dysphagia, or rhinorrhea CARDIOVASCULAR: Denies chest pain or palpitations PULMONARY: Denies shortness of breath GASTROINTESTINAL: Denies constipation/diarrhea GENITOURINARY: denies dysuria or oliguria MUSCULOSKELETAL: LE weakness NEUROLOGICAL: denies paresthesias HEMATOLOGICAL: denies easy bruising SKIN: denies rash PSYCHIATRIC: Unremarkable All other review of systems found to be negative. PAST MEDICAL HISTORY: as per HPI PAST SURGICAL HISTORY: foot surgery ALLERGIES: Please see below. MEDICATIONS: Please see below. FAMILY HISTORY: HTN and prostate cancer SOCIAL HISTORY: Vapes, no drugs, occasional etoh DIET: low sodium PHYSICAL EXAMINATION: VITAL SIGNS: Please see below. GENERAL: Pleasant and cooperative. No acute distress. HEENT: PERRL. Extraocular movements intact. Clear conjunctiva CARDIOVASCULAR: Regular rate and rhythm. No murmurs, rubs, or gallops LUNGS: Clear to auscultation bilaterally. No wheezes. No rhonchi ABDOMEN: Soft, nontender, nondistended. Positive bowel sounds. Normal active bowel sounds NEUROLOGICAL: Alert and oriented times three. Cranial nerves II through XII grossly intact. Sensation grossly intact (-) Homans bilat EXTREMITIES: 5\5 strength bilateral upper extremities. 4\5 strength right lower extremity. 4/5 strength in left lower extremity. +atrophy of quad muscles and calf muscles LABORATORY DATA: Please see below. IMAGING:Imaging documentation personally reviewed by record FUNCTIONAL STATUS: Premorbid: Independent with all activities of daily life as well as mobility On Admission: Min assist for bed mobility, functional transfers, ambulation, toileting GOALS: Mod-I for bed mobility, functional transfers, ambulation, toileting, dressing, bathing, stairs ASSESSMENT:50-year-old M with past medical history of HTN who presents status post rhabdomyolysis with ANDREA requiring dialysis and severe muscles weakness PLAN: 1. Rehab- PT/OT advance mobility an ADLs, strengthen/stretch/maintain ROM all 4 limbs, balance training 2. NEuro- patient with muscle atrophy and weakness due to severe rhabdomyolysis causing gait and mobility deficits, cont therapy for strengthening 3. Cardiac- hx of HTN cont BP meds, adjust prn -medicine consulted to assist in overall management 4. Resp- monitor for infection, cont CPAP for TASHA 5. Renal- acute kidney failure in setting of rhabdomyolysis following Campylobacter infection, cont dialysis, patient urinating well, renal following -cont calcium acetate for hypocalcemia and velphoro for hyperphosphatemia 6. GI ppx- protonix 7. DVT ppx heparin and teds 8. Pain- tylenol, gabapentin, tramadol 9. Dispo- TBD POST ADMISSION PHYSICIAN EVALUATION: Medical and functional status: Description of medical status, medical assessment: As above. Rehabilitation diagnosis and current and prior cold morbid medical conditions as above. Risk of complications and plans to mitigate them as above. Description of functional status current status is as above. Prior status as above. Status compared to preadmission: There are no clinically significant differences between the patient's current status and the information described on the preadmission screening document. Treatment plan anticipated: Treatment plan is as described above. Required disciplines including physical therapy, occupational therapy, others as noted above. Intensity of services: 3 hours a day, 6 days a week. Special considerations: There are no specific special or safety considerations that would likely preclude immediate implementation of an intensive rehabilitation program or subsequently influence the plan of care. ATTESTATION: Considering all the information above, it is my best judgment that this patient requires intensive rehabilitation therapy as described above and an inpatient hospital environment due to the complexity of nursing, medical, and rehabilitation needs required by the patient. Furthermore, this patient can reasonably be expected to participate in an benefit from an inpatient rehabilitation stay with an interdisciplinary team approach to the delivery of rehabilitation care under the direction and supervision of rehabilitation physician. PROGNOSIS: Excellen ESTIMATED LENGTH OF STAY:12-14 days. PROJECTED DISCHARGE DESTINATION: Home with family support and any durable medical equipment required to increase functional safety and mobility TIME SPENT COUNSELING AND COORDINATING INITIAL CARE: Greater than 70 minutes. Vital Signs Vital Sign - Last 24 Hours 11/04/20 11/04/20 11/04/20 11/04/20 14:47 20:59 21:06 21:10 Temp 98.6 Pulse 70 Resp 18 18 B/P (MAP) 160/90 (113) 174/82 (112) 174/82 Pulse Ox 98 O2 Delivery Room Air 11/04/20 11/04/20 11/04/20 11/05/20 21:29 22:00 23:20 06:00 Temp 98.7 97.8 Pulse 71 76 62 Resp 18 18 18 B/P (MAP) 160/80 (106) 172/90 181/91 (121) Pulse Ox 96 99 O2 Delivery Room Air Room Air 11/05/20 11/05/20 11/05/20 11/05/20 06:06 06:07 06:07 08:38 Pulse 63 63 B/P (MAP) 162/90 162/90 162/90 (114) 162/90 Laboratory Data CBC/BMP Laboratory Tests 11/05/20 07:15 Labs 24H Laboratory Tests 2 11/05/20 07:15: Immature Granulocyte % (Auto) 0.5, Neutrophils (%) (Auto) 71.4H, Lymphocytes (%) (Auto) 13.1L, Monocytes (%) (Auto) 6.8, Eosinophils (%) (Auto) 7.8H, Basophils (%) (Auto) 0.4, Neutrophils # (Auto) 6.7, Lymphocytes # (Auto) 1.2L, Monocytes # (Auto) 0.6, Eosinophils # (Auto) 0.7H, Basophils # (Auto) 0.0, Nucleated Red Blood Cells % (auto) 0.0, Anion Gap 14, Glomerular Filtration Rate 11.0L, Calcium Level 9.9, Total Bilirubin 0.9#, Aspartate Amino Transf (AST/SGOT) 83H, Alanine Aminotransferase (ALT/SGPT) 145H, Alkaline Phosphatase 110, Total Protein 7.7, Albumin 3.9, Albumin/Globulin Ratio 1.0 Home Medications Scheduled Amlodipine Besylate (Amlodipine Besylate) 10 Mg Tab, 10 MG PO DAILY, (Reported) Folic Acid/Vit B Complex and C (Super B Complex Tablet) 400 Mcg Tablet, 1 TAB PO DAILY, (Reported) Gabapentin (Gabapentin) 300 Mg Capsule, 600 MG PO TID, (Reported) Glucosa Schwarz 2Kcl/Chondroitin Schwarz (Glucosamine & Chondroitin Cap) 1 Each Capsule, 1 CAP PO DAILY, (Reported) Hydralazine HCl (Hydralazine HCl) 50 Mg Tablet, 50 MG PO Q8H Labetalol HCl (Labetalol HCl) 100 Mg Tablet, 100 MG PO Q8H Multivitamins (Thera M Plus Tablet) 1 Each Tablet, 1 TAB PO DAILY, (Reported) Allergies Coded Allergies: No Known Allergies (Unverified , 03/04/14) A-FIB/CHADSVASC A-FIB History Current/History of A-Fib/PAF?: No Current PO Anticoag Therapy: No KATHLEEN GILES MD Nov 05, 2020 09:41
--- NOTE | 2020-11-05 12:40 | IPNPDOC ---
Text Note Date of Service The patient was seen on 11/05/20. 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 Patient was working with physical therapy to get off the bed with mild assistance and has placed walked 80 feet yesterday he states his physical therapy is going to go on until noon today. He seemed more motivated and encouraged from the amount of strength he has regained over the past few weeks. He had some questions about his kidney recovery and whether he would need dialysis again today. He does not report any other acute complaints OBJECTIVE: GENERAL: Patient is awake alert oriented x3, sitting by the bedside under no acute distress HEENT: Atraumatic, normocephalic, EOMI, PERRLA, moist mucous membranes, no scleral icterus or pallor Cardiovascular: Heart sounds normal, regular rate rhythm. No murmurs rubs or gallops heard. PULMONARY: Chest is clear to auscultation bilaterally, no wheezes or rhonchi or crackles heard. ABDOMEN: Obese, nontender, nondistended, bowel sounds normal. No organomegaly. NEURO: Patient is generally weak muscle weakness 2/5 secondary to weakness, sensations intact ASSESSMENT AND PLAN: 1 Non- oliguric renal failure secondary to acute rhabdomyolysis: Patient's numbers are getting better today her his CPK level is down. Creatinine is stable. Patient is making appropriate amount of urine about mL in the past 8 hours. Patient's creatinine levels are not dramatically going up now leg raises pretty mild 5.8 this morning so we are holding off hemodialysis as the kidneys have started recovering. The decision for hemodialysis will be made after close monitoring of creatinine tomorrow again. If the creatinine levels keep on going up we might need to give 1 more session of dialysis however if the kidney function or creatinine stays stable or trends down patient might not need hemodialysis at all. At this point permacath is in place decision to remove it will be made in the coming consecutive days. Good oral intake. No other changes in his management today. Nephrology will still be on board for watching the patient's kidney numbers while the patient recovers in acute rehabilitation unit 2. Hypertension: -Blood pressure levels remain higher . Continue blood pressure medications. Including amlodipine and as needed hydralazine. 3. Hyperphosphatemia: -Patient continues to be on PhosLo with meals. VS,Fishbone, I+O VS, Fishbone, I+O Laboratory Tests 11/05/20 07:15 Vital Signs Date Time Temp Pulse Resp B/P (MAP) Pulse Ox O2 Delivery O2 Flow Rate FiO2 11/05/20 08:38 63 162/90 11/05/20 06:00 97.8 18 99 Room Air I&O- Last 24 Hours up to 6 AM 11/05/20 06:00 Intake Total 1050 ml Output Total 2375 ml Balance -1325 ml GME ATTESTATION GME ATTESTATION My faculty preceptor for this patient encounter was physically present during the encounter and was fully available. All aspects of the patient interview, examination, medical decision making process, and medical care plan development were reviewed and approved by the faculty preceptor. The faculty preceptor is aware and concurs with the plan as stated in the body of this note and will attest to such by his/her cosignature. Evan Cortes MD Nov 05, 2020 12:34
[2020-11-05 14:00] VITALS: BP 157/85
[2020-11-05] MEDS: **hydrALAZINE HCL** 25 MG TAB PO SCH ×2 (15:04→21:49)
[2020-11-05] MEDS: SENNA 8.6 MG TAB (SENOKOT) PO SCH (19:48)
[2020-11-05] MEDS: GABAPENTIN 100 MG CAP PO SCH (20:30)
[2020-11-05] MEDS: traMADol 50 MG TAB PO PRN (20:30)
[2020-11-05] MEDS ORDERED: ANALGESIC BALM CRM 3OZ TOP PRN (20:55)
[2020-11-05 23:00] VITALS: BP 158/94
[2020-11-06] MEDS: LABETALOL 100MG TAB PO SCH ×3 (05:48→21:05)
[2020-11-06] MEDS: **hydrALAZINE HCL** 25 MG TAB PO SCH ×3 (05:49→21:05)
[2020-11-06 06:00] VITALS: BP 158/92
[2020-11-06 07:31] LABS: CALCIUM LEVEL 9.8 MG/DL (8.5-10.1); CREATININE FOR GFR 5.61 MG/DL (0.70-1.30); GLOMERULAR FILTRATION RATE 11.6 (>60)
[2020-11-06] MEDS: COMBIVENT RESPIMAT 100-20MCG INHALER 4GM INH SCH ×3 (08:00→19:48)
[2020-11-06] MEDS: HEPARIN SOD (PORCINE) 5000UNITS/ML 1ML VIAL/SYRINGE SC SCH ×2 (09:00→20:58)
[2020-11-06] MEDS: DOCUSATE SODIUM 100MG CAPSULE PO SCH ×3 (09:00→20:58)
[2020-11-06] MEDS: REMEDY PHYTOPLEX Z-GUARD PASTE 113GM TUBE (FROM STOREROOM PRODUCT) TOP SCH (09:00)
[2020-11-06] MEDS: PANTOPRAZOLE 40MG TAB (PROTONIX) PO SCH (09:13)
[2020-11-06] MEDS: ACETAMINOPHEN TAB 650MG DOSE (2X325MG) PO PRN (09:14)
[2020-11-06] MEDS: SUCROFERRIC OXYHYDROXIDE 500MG CHEW TAB (VELPHORO) PO SCH ×3 (09:17→16:48)
[2020-11-06] MEDS: CALCIUM ACETATE 667MG GELCAP PO SCH ×3 (09:18→16:48)
--- NOTE | 2020-11-06 13:39 | IPNPDOC ---
Text Note Date of Service The patient was seen on 11/06/20. NOTE Subjective: no any acute events overnight. No fever or chills Objective: GENERAL APPEARANCE: NAD HEENT: no scleral icterus, no JVD, EOMI CARDIOVASCULAR: S1S2 LUNGS: CTA ABDOMEN: soft & not tender w palpation MUSCULOSKELETAL: no cyanosis, +1 swelling of lower extremities INTEGUMENT: no generalized pallor NEUROLOGICAL: cranial nerve function from 2-12 intact, follows commands, speech not dysarthric Assessment and plan Mr. Dunn is a 50-year-old male with a past medical history of hypertension, sleep apnea on CPAP, chronic back pain, obesity, presented to the ER on 10/19 for generalized and diffuse muscle aches and pains with weakness and difficulty ambulating. Patient was found to have ANDREA secondary to rhabdomyolysis requiring dialysis treatment. After stabilization patient was transferred to ARU ANDREA nonoliguric Secondary to rhabdomyolysis Nephrology team follows him Rhabdomyolysis/hyperphosphatemia CPK normalized Muscle pain/weakness Improved Secondary to rhabdomyolysis Pain management Hypertension Continue amlodipine, hydralazine, labetalol p.o. TASHA May use own CPAP Deconditioning PT/OT VS,Fishbone, I+O VS, Fishbone, I+O Laboratory Tests 11/06/20 06:53 Vital Signs Date Time Temp Pulse Resp B/P (MAP) Pulse Ox O2 Delivery O2 Flow Rate FiO2 11/06/20 09:23 70 152/90 11/06/20 06:00 98.3 19 97 Room Air I&O- Last 24 Hours up to 6 AM 11/06/20 06:00 Intake Total 930 ml Output Total 3100 ml Balance -2170 ml NEHEMIAS DELAROSA DO Nov 06, 2020 13:39
[2020-11-06 14:00] VITALS: BP 139/86
[2020-11-06 20:00] VITALS: BP 150/87
[2020-11-06] MEDS: GABAPENTIN 100 MG CAP PO SCH (20:58)
[2020-11-06] MEDS: SENNA 8.6 MG TAB (SENOKOT) PO SCH (20:58)
[2020-11-06] MEDS: traMADol 50 MG TAB PO PRN (21:00)
--- NOTE | 2020-11-06 22:26 | IPN ---
PROGRESS NOTE DATE: 11/06/2020 SUBJECTIVE: Mr. Dunn is seen this morning on his bedside in acute rehab. He is feeling better and reports that his ability to walk is gradually improving. He denies any dyspnea, chest pain, nausea or vomiting. PHYSICAL EXAMINATION: VITALS: Temperature 98.3 degrees Fahrenheit, heart rate 70 per minute, respiratory rate 18 per minute, blood pressure 152/90 mmHg, oxygen saturation 97% on room air. INTAKE/OUTPUT: Records from yesterday show a negative fluid balance of about 2 liters. His weight is 1 kg higher than yesterday. I feel that his intake is probably not accurately recorded. HEENT: Head is atraumatic. Neck supple and without JVD or thyroid enlargement. Dialysis catheter on right upper chest is intact. HEART: Heart sounds are regular. LUNGS: Clear to auscultation. ABDOMEN: Soft and nontender and bowel sounds are normal. EXTREMITIES: Without any cyanosis or clubbing. He does not have any peripheral edema. NEUROLOGIC: He is awake, alert and oriented x3 without a focal deficit. LABORATORY STUDIES: Today's labs show sodium 134, potassium 4.0, chloride 97, CO2 22, BUN 105, creatinine 5.6. Glucose 93 and calcium 9.8. PROBLEMS: 1. Acute renal failure: Patient had acute renal failure secondary to rhabdomyolysis and has been dialysis dependent for over two weeks. He is nonoliguric with good urine output and in fact he has been in negative fluid balance. I have explained to him that his creatinine has come down to 5.6 today from 5.87 yesterday. His BUN did go up to 105 from 85 yesterday. I am concerned about the possibility of volume depletion and have encouraged the patient to increase his oral fluid intake. I was planning to remove his Permacath today, however, I will wait for another 24 hours and ensure further improvement in his BUN and creatinine before we decide to pull his catheter out. I have reassured the patient that in my opinion he is not going to require any further dialysis at this point. 2. Anemia: His anemia is very mild and does not need any intervention. His CBC will be checked again tomorrow. 3. Rhabdomyolysis and muscle weakness: His rhabdomyolysis has resolved and muscle strength is gradually increasing with rehab. He is likely to return back to his baseline over a period of time. 4. Hyponatremia: He has very mild hyponatremia for which no intervention is needed. 5. Hypertension: Blood pressure has been well controlled and he remains on Hydralazine 75 mg every 8 hours and Amlodipine 10 mg daily in addition to Labetalol 100 mg every 8 hours. He is not suitable for FILIPPO inhibitor or angiotensin receptor bianca at this point due to acute kidney injury.
[2020-11-07] MEDS: LABETALOL 100MG TAB PO SCH ×3 (05:39→21:29)
[2020-11-07] MEDS: **hydrALAZINE HCL** 25 MG TAB PO SCH ×3 (05:39→21:29)
[2020-11-07 06:00] VITALS: BP 150/96
[2020-11-07 06:40] LABS: BASO % 0.4 % (0.0-1.0); EOS % 11.5 % (0.0-3.0); HEMATOCRIT 35.7 % (42.0-52.0); HEMOGLOBIN 12.1 g/dl (13.5-17.5); LYMPH # 1.3 10^3/uL (1.5-5.0); LYMPH % 14.2 % (24.0-44.0); MEAN CORPUSCULAR HEMOGLOBIN 30.3 pg (27.0-33.0); MEAN CORPUSCULAR HGB CONC 33.9 g/dl (32.0-36.5); MEAN CORPUSCULAR VOLUME 89.5 fl (80.0-96.0); MONO # 0.7 10^3/uL (0.0-0.8); MONO % 7.7 % (2.0-8.0); NEUTROPHILS # 5.9 10^3/uL (1.5-8.5); NEUTROPHILS % 65.6 % (36.0-66.0); PLATELET COUNT, AUTOMATED 307 10^3/uL (150-450); RED BLOOD COUNT 3.99 10^6/uL (4.30-6.10); WHITE BLOOD COUNT 8.9 10^3/uL (4.0-10.0)
[2020-11-07] MEDS: COMBIVENT RESPIMAT 100-20MCG INHALER 4GM INH SCH ×3 (07:06→20:16)
[2020-11-07 07:10] LABS: BILIRUBIN,TOTAL 0.5 MG/DL (0.2-1.0); CALCIUM LEVEL 9.6 MG/DL (8.5-10.1); CREATININE FOR GFR 5.26 MG/DL (0.70-1.30); GLOMERULAR FILTRATION RATE 12.4 (>60); MAGNESIUM LEVEL 2.3 MG/DL (1.8-2.4); POTASSIUM SERUM 3.7 MEQ/L (3.5-5.1)
[2020-11-07] MEDS: DOCUSATE SODIUM 100MG CAPSULE PO SCH ×2 (09:00→20:47)
[2020-11-07] MEDS: HEPARIN SOD (PORCINE) 5000UNITS/ML 1ML VIAL/SYRINGE SC SCH ×2 (09:00→20:47)
[2020-11-07] MEDS: SUCROFERRIC OXYHYDROXIDE 500MG CHEW TAB (VELPHORO) PO SCH (09:03)
[2020-11-07] MEDS: PANTOPRAZOLE 40MG TAB (PROTONIX) PO SCH (09:03)
[2020-11-07] MEDS: CALCIUM ACETATE 667MG GELCAP PO SCH ×3 (09:03→18:18)
[2020-11-07 14:00] VITALS: BP 165/93
[2020-11-07 20:00] VITALS: BP 142/84
[2020-11-07] MEDS: SENNA 8.6 MG TAB (SENOKOT) PO SCH (20:47)
[2020-11-07] MEDS: GABAPENTIN 100 MG CAP PO SCH (20:47)
--- NOTE | 2020-11-07 21:37 | IPN ---
NEPHROLOGY PROGRESS NOTE DATE: 11/07/2020 SUBJECTIVE: Mr. Dunn is seen this morning on his bedside. He is feeling better and denies any nausea, vomiting, dyspnea or chest pain. He reports that he has been drinking more fluid since yesterday. PHYSICAL EXAMINATION: VITAL SIGNS: Temperature 98.3 degrees Fahrenheit, heart rate 72 per minute, respiratory rate 18 per minute, blood pressure 165/93 mmHg, oxygen saturation 98% on room air. HEAD: Atraumatic. NECK: Supple and without jugular venous distention (JVD) or thyroid enlargement. Permacath is present on right upper chest. HEART SOUNDS: Regular. LUNGS: Clear to auscultation. ABDOMEN: Soft and nontender. Bowel sounds are normal. EXTREMITIES: Without any cyanosis or clubbing. NEUROLOGIC: He is at his baseline mentation without a focal neurological deficit. LABORATORY DATA: Today's labs show WBC 8.9, hemoglobin 12.1, hematocrit 35.7. Sodium 133, potassium 3.7, CO2 24, BUN 106, creatinine down to 5.26, calcium level 9.6. PROBLEMS: 1. Acute kidney injury. Kidney function is now gradually improving. He has good urine output and I anticipate further improvement in kidney function over the next few days. He does not need dialysis anymore and I am going to remove his Permacath today. 2. Hypertension. Blood pressure is slightly on the high side. I will consider to increase his hydralazine dose to 100 mg three times a day if blood pressure is not better in the next 24 hours. At this point, we will avoid angiotensin converting enzyme (FILIPPO) inhibitor or angiotensin receptor bianca in view of recovering from acute kidney injury. 3. Anemia. His anemia is mild and likely to resolve. 4. Rhabdomyolysis with muscle weakness. Patient had severe rhabdomyolysis and now his muscle weakness is improving with acute rehabilitation. 4. Dialysis catheter. I have explained to the patient that he does not need dialysis anymore and his catheter will need to be removed. He is willing to proceed and has consented.
--- NOTE | 2020-11-07 22:16 | RO ---
OPERATIVE NOTE DATE OF OPERATION: 11/07/2020 PREOPERATIVE DIAGNOSIS: Removal of right internal jugular vein Permacath. INDICATION FOR PROCEDURE: Recovery of acute renal failure and no need for further dialysis. PRE-PROCEDURE DIAGNOSIS: Recovery of acute renal failure and no need for further dialysis. POST-PROCEDURE DIAGNOSIS: Recovery of acute renal failure and no need for further dialysis. SURGEON: Hans Mcnulty M.D. EXTERNAL RELATIONS DIRECTOR: ANESTHESIA: DESCRIPTION OF PROCEDURE: Patient is very well aware that his kidney function has improved and he does not need dialysis anymore. He was last dialyzed on Tuesday this week and since then he has not required dialysis anymore. At this point, dialysis catheter is not needed at the risk of infection, so it will be removed on his bedside. We removed the dressing from the catheter and removed both sutures. Catheter site was then cleaned and with a constant pull, catheter was pulled out. The catheter cuff was dislodged easily and whole catheter was removed intact without any problem. Patient tolerated the procedure very well. Digital pressure held at the catheter exit site and pressure dressing then applied. No complications and patient tolerated the procedure well. There was no blood loss. MTDD
[2020-11-08 05:45] VITALS: BP 150/88
[2020-11-08] MEDS: **hydrALAZINE HCL** 25 MG TAB PO SCH ×3 (05:49→21:20)
[2020-11-08] MEDS: LABETALOL 100MG TAB PO SCH ×3 (05:50→21:19)
[2020-11-08] MEDS: COMBIVENT RESPIMAT 100-20MCG INHALER 4GM INH SCH ×3 (07:05→18:16)
[2020-11-08 07:44] LABS: ALBUMIN 4.1 GM/DL (3.2-5.2); BILIRUBIN,TOTAL 0.5 MG/DL (0.2-1.0); CALCIUM LEVEL 9.5 MG/DL (8.5-10.1); CREATININE FOR GFR 4.55 MG/DL (0.70-1.30); GLOMERULAR FILTRATION RATE 14.7 (>60); MAGNESIUM LEVEL 2.2 MG/DL (1.8-2.4); PHOSPHORUS LEVEL 5.2 MG/DL (2.5-4.9); POTASSIUM SERUM 3.6 MEQ/L (3.5-5.1); TOTAL PROTEIN 7.9 GM/DL (6.4-8.2)
[2020-11-08] MEDS: DOCUSATE SODIUM 100MG CAPSULE PO SCH ×2 (09:00→21:00)
[2020-11-08] MEDS: HEPARIN SOD (PORCINE) 5000UNITS/ML 1ML VIAL/SYRINGE SC SCH ×2 (09:00→21:00)
[2020-11-08] MEDS: PANTOPRAZOLE 40MG TAB (PROTONIX) PO SCH (09:34)
[2020-11-08] MEDS: CALCIUM ACETATE 667MG GELCAP PO SCH ×3 (09:34→17:24)
--- NOTE | 2020-11-08 11:41 | IPNPDOC ---
Text Note Date of Service The patient was seen on 11/08/20. 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 Patient looks comfortable had just finished physical therapy and said he felt really good however sore after physical therapy and [facility] a bio wave muscle soothing device to help with soreness. OBJECTIVE: GENERAL: Patient is awake alert oriented x3, sitting by the bedside under no acute distress HEENT: Atraumatic, normocephalic, EOMI, PERRLA, moist mucous membranes, no scleral icterus or pallor Cardiovascular: Heart sounds normal, regular rate rhythm. No murmurs rubs or gallops heard. PULMONARY: Chest is clear to auscultation bilaterally, no wheezes or rhonchi or crackles heard. ABDOMEN: Obese, nontender, nondistended, bowel sounds normal. No organomegaly. NEURO: Patient is generally weak muscle weakness 2/5 secondary to weakness, sensations intact ASSESSMENT AND PLAN: 1 Non- oliguric renal failure secondary to acute rhabdomyolysis: Patient's rhabdomyolysis is still clearing. His creatinine was down to 4 today. Kidney function is improving and the decision to stop dialysis was made. Yesterday the permacatheter was removed to decrease the risk of any further infection, patient tolerated the procedure well. Today the dressing is removed and underneath the incision shows no signs of inflammation or infection. Good oral intake. No other changes in his management today. Nephrology will still be on board for watching the patient's kidney numbers while the patient recovers in acute rehabilitation unit 2. Hypertension: -Blood pressure levels remain higher . We talked to the patient about this. He said he will follow it up outpatient with his primary care provider for optimization of blood pressure. Continue blood pressure medications. Including amlodipine and as needed hydralazine. 3. Hyperphosphatemia: -Hyperphosphatemia has gotten better. -We have stopped PhosLo for the patient VS,Fishbone, I+O VS, Fishbone, I+O Laboratory Tests 11/08/20 06:57 Vital Signs Date Time Temp Pulse Resp B/P (MAP) Pulse Ox O2 Delivery O2 Flow Rate FiO2 11/08/20 09:35 72 150/80 11/08/20 05:45 98.2 18 97 Room Air I&O- Last 24 Hours up to 6 AM 11/08/20 06:00 Intake Total 720 ml Output Total 2955 ml Balance -2235 ml GME ATTESTATION GME ATTESTATION My faculty preceptor for this patient encounter was physically present during the encounter and was fully available. All aspects of the patient interview, examination, medical decision making process, and medical care plan development were reviewed and approved by the faculty preceptor. The faculty preceptor is aware and concurs with the plan as stated in the body of this note and will attest to such by his/her cosignature. Evan Cortes MD Nov 08, 2020 11:35
[2020-11-08 14:00] VITALS: BP 164/82
[2020-11-08 20:00] VITALS: BP 164/83
[2020-11-08] MEDS: SENNA 8.6 MG TAB (SENOKOT) PO SCH (21:00)
[2020-11-08] MEDS: GABAPENTIN 100 MG CAP PO SCH (21:19)
[2020-11-09 05:02] VITALS: BP 137/78
[2020-11-09] MEDS: LABETALOL 100MG TAB PO SCH ×3 (05:22→21:07)
[2020-11-09] MEDS: **hydrALAZINE HCL** 25 MG TAB PO SCH ×3 (05:22→21:06)
[2020-11-09] MEDS: COMBIVENT RESPIMAT 100-20MCG INHALER 4GM INH SCH ×3 (08:00→20:00)
[2020-11-09 08:16] LABS: ALBUMIN 4.1 GM/DL (3.2-5.2); BILIRUBIN,TOTAL 0.8 MG/DL (0.2-1.0); CALCIUM LEVEL 9.8 MG/DL (8.5-10.1); CREATININE FOR GFR 4.05 MG/DL (0.70-1.30); GLOMERULAR FILTRATION RATE 16.8 (>60); MAGNESIUM LEVEL 2.3 MG/DL (1.8-2.4); POTASSIUM SERUM 3.4 MEQ/L (3.5-5.1); TOTAL PROTEIN 7.8 GM/DL (6.4-8.2)
[2020-11-09] MEDS: DOCUSATE SODIUM 100MG CAPSULE PO SCH ×4 (09:00→21:08)
[2020-11-09] MEDS: HEPARIN SOD (PORCINE) 5000UNITS/ML 1ML VIAL/SYRINGE SC SCH ×2 (09:00→21:00)
[2020-11-09] MEDS: PANTOPRAZOLE 40MG TAB (PROTONIX) PO SCH (09:17)
[2020-11-09] MEDS: CALCIUM ACETATE 667MG GELCAP PO SCH ×3 (09:18→17:17)
[2020-11-09] MEDS ORDERED: POTASSIUM CHLORIDE 10MEQ SR TABLET PO ONE (10:00)
[2020-11-09 14:00] VITALS: BP 137/84
--- NOTE | 2020-11-09 18:48 | IPN ---
NEPHROLOGY PROGRESS NOTE DATE: 11/09/2020 SUBJECTIVE: Mr. Dunn is seen this morning on his bedside. He is sitting in the wheelchair and reports that he just finished his personal hygiene. He is feeling well and denies any nausea, vomiting, dyspnea or chest pain. His muscle strength is improving and he is able to walk a few steps without any assistance. He is walking mostly with the walker. PHYSICAL EXAMINATION: VITAL SIGNS: Temperature 99 degrees Fahrenheit, heart rate 70 per minute, respiratory rate 18 per minute, blood pressure 135/80 mmHg, oxygen saturation 98% on room air. HEAD: Atraumatic. NECK: Supple and without jugular venous distention (JVD) or thyroid enlargement. Permacath removal site is clean and Band-Aid is in place. HEART SOUNDS: Regular. LUNGS: Clear to auscultation. ABDOMEN: Soft and nontender. Bowel sounds are normal. EXTREMITIES: Without any cyanosis or clubbing. SKIN: No rash or ulcers. NEUROLOGIC: He is awake, alert and oriented times three. LABORATORY DATA: Today's chemistry shows sodium 136, potassium 3.4, CO2 26, BUN 92, creatinine 4.05, calcium level 9.8. Yesterday, his phosphorus was 5.2. PROBLEMS: 1. Acute renal failure. Kidney function is improving slowly but surely. No further need for dialysis and Permacath has already been removed. 2. Hypokalemia. He has mild hypokalemia and is being given one dose of potassium chloride 40 mEq today. Patient has been advised to eat a regular diet. He is not currently in need of any dietary restrictions. 3. Hyperphosphatemia. His phosphorus level is also improving as his kidney function is improving. One of his phosphorus binders, Velphoro, has already been stopped. I am also going to cut down his calcium acetate dose to 667 mg with meals. We can most likely stop his phosphorus binder in the next couple of days as his kidney function improves further. 4. Hypertension. Blood pressure has been very well controlled and no changes are being made in his antihypertensive medications. 5. Rhabdomyolysis with severe generalized muscle weakness. Patient had severe rhabdomyolysis and is now recovering. His muscle strength is gradually improving with acute rehabilitation.
[2020-11-09 20:00] VITALS: BP 159/85
[2020-11-09] MEDS: SENNA 8.6 MG TAB (SENOKOT) PO SCH (21:00)
[2020-11-09] MEDS: GABAPENTIN 100 MG CAP PO SCH (21:06)
[2020-11-10] MEDS: LABETALOL 100MG TAB PO SCH ×3 (05:37→21:29)
[2020-11-10] MEDS: **hydrALAZINE HCL** 25 MG TAB PO SCH ×3 (05:37→21:29)
[2020-11-10 06:00] VITALS: BP 154/93
[2020-11-10 06:27] VITALS: BP 153/94
[2020-11-10 06:30] LABS: ALBUMIN 3.9 GM/DL (3.2-5.2); BILIRUBIN,TOTAL 0.6 MG/DL (0.2-1.0); CALCIUM LEVEL 9.6 MG/DL (8.5-10.1); CREATININE FOR GFR 3.56 MG/DL (0.70-1.30); GLOMERULAR FILTRATION RATE 19.5 (>60); MAGNESIUM LEVEL 2.1 MG/DL (1.8-2.4); POTASSIUM SERUM 3.7 MEQ/L (3.5-5.1); TOTAL PROTEIN 7.6 GM/DL (6.4-8.2)
[2020-11-10] MEDS: COMBIVENT RESPIMAT 100-20MCG INHALER 4GM INH SCH ×3 (08:00→17:27)
[2020-11-10] MEDS: CALCIUM ACETATE 667MG GELCAP PO SCH ×3 (08:09→18:26)
[2020-11-10] MEDS: DOCUSATE SODIUM 100MG CAPSULE PO SCH ×2 (08:10→20:39)
[2020-11-10] MEDS: PANTOPRAZOLE 40MG TAB (PROTONIX) PO SCH (08:10)
[2020-11-10] MEDS: HEPARIN SOD (PORCINE) 5000UNITS/ML 1ML VIAL/SYRINGE SC SCH ×2 (08:10→20:40)
--- NOTE | 2020-11-10 10:51 | IPNPDOC ---
PM&R Progress Note DATE OF SERVICE: Nov 07, 2020 Health And Safety Consultant Progress Note Subjective: Patient reporting he feels his pain is well controlled and that he does not need a stronger nerve pain medication. He reports he is happy to be on the rehab unit because he feels much weaker than is baseline. REVIEW OF SYSTEMS: The following is a completed review of systems and has been reviewed. Review of systems otherwise unremarkable. PAIN: Patient self reports leg cramping EYES: No recent vision changes EARS, NOSE, & THROAT: No throat pain, or dysphagia, or rhinorrhea CARDIOVASCULAR: Denies chest pain or palpitations PULMONARY: Denies shortness of breath GASTROINTESTINAL: Denies constipation/diarrhea GENITOURINARY: denies dysuria or oliguria MUSCULOSKELETAL: LE weakness NEUROLOGICAL: denies paresthesias HEMATOLOGICAL: denies easy bruising SKIN: denies rash PSYCHIATRIC: Unremarkable All other review of systems found to be negative. PHYSICAL EXAMINATION: VITAL SIGNS: Please see below. GENERAL: Pleasant and cooperative. No acute distress. HEENT: PERRL. Extraocular movements intact. Clear conjunctiva CARDIOVASCULAR: Regular rate and rhythm. No murmurs, rubs, or gallops LUNGS: Clear to auscultation bilaterally. No wheezes. No rhonchi ABDOMEN: Soft, nontender, nondistended. Positive bowel sounds. Normal active bowel sounds NEUROLOGICAL: Alert and oriented times three. Cranial nerves II through XII grossly intact. Sensation grossly intact (-) Homans bilat EXTREMITIES: 5\5 strength bilateral upper extremities. 4\5 strength right lower extremity. 4/5 strength in left lower extremity. +atrophy of quad muscles and calf muscles ASSESSMENT:50-year-old M with past medical history of HTN who presents status post rhabdomyolysis with ANDREA requiring dialysis and severe muscles weakness PLAN: 1. Rehab- PT/OT advance mobility an ADLs, strengthen/stretch/maintain ROM all 4 limbs, balance training-ambulating with RW 2. NEuro- patient with muscle atrophy and weakness due to severe rhabdomyolysis causing gait and mobility deficits, cont therapy for strengthening 3. Cardiac- hx of HTN cont BP meds, adjust prn -medicine consulted to assist in overall management 4. Resp- monitor for infection, cont CPAP for TASHA 5. Renal- acute kidney failure in setting of rhabdomyolysis following Campylobacter infection, patient urinating well, permacath removed, patient now off dialysis, renal following -cont calcium acetate for hypocalcemia and velphoro for hyperphosphatemia 6. GI ppx- protonix 7. DVT ppx heparin and teds 8. Pain- tylenol, gabapentin, tramadol 9. Dispo- TBD Allergies Coded Allergies: No Known Allergies (Unverified , 03/04/14) Vital Signs Vital Signs Date Time Temp Pulse Resp B/P (MAP) Pulse Ox O2 Delivery O2 Flow Rate FiO2 11/10/20 08:10 74 153/94 11/10/20 06:00 98.4 20 95 Room Air Laboratory Data CBC/BMP Laboratory Tests 11/10/20 05:28 Labs 24H Laboratory Tests 2 11/10/20 05:28: Anion Gap 11, Glomerular Filtration Rate 19.5L, Calcium Level 9.6, Magnesium Level 2.1, Total Bilirubin 0.6, Aspartate Amino Transf (AST/SGOT) 37, Alanine Aminotransferase (ALT/SGPT) 78, Alkaline Phosphatase 102, Total Protein 7.6, Albumin 3.9, Albumin/Globulin Ratio 1.1 Current Medications Current Medications Current Medications Medications (Trade) Dose Ordered Sig/Dago Route PRN Reason Start Time Stop Time Status Last Admin Dose Admin Acetaminophen (Tylenol Tab) 650 mg Q4HP PRN PO fever/MILD PAIN (PS 1-4) 11/04/20 16:25 11/06/20 09:14 Albuterol/ Ipratropium (Combivent Respimat 100-20mcg) 1 puff RTID INH 11/04/20 21:00 11/07/20 20:16 Amlodipine Besylate (Norvasc) 10 mg DAILY PO 11/05/20 09:00 11/10/20 08:10 Bisacodyl (Dulcolax Suppository) 10 mg DAILYPRN PRN [place] CONSTIPATION 11/04/20 16:25 Calcium Acetate (Phoslo) 667 mg WM PO 11/10/20 08:00 11/10/20 08:09 Calcium Acetate (Phoslo) 1,334 mg WM PO 11/04/20 18:00 11/09/20 18:16 DC 11/09/20 17:17 Docusate Sodium (Colace) 100 mg BID PO 11/04/20 21:00 Gabapentin (Neurontin) 100 mg QHS PO 11/04/20 21:00 11/09/20 21:06 Heparin Sodium (Porcine) (Heparin) 5,000 units Q12H SC 11/04/20 21:00 11/05/20 20:31 Hydralazine HCl (Apresoline) 50 mg Q8H PO 11/04/20 22:00 11/05/20 09:42 DC 11/05/20 06:07 Hydralazine HCl (Apresoline) 75 mg Q8H PO 11/05/20 14:00 11/10/20 05:37 Labetalol HCl (Normodyne, Trandate) 100 mg Q8H PO 11/04/20 22:00 11/10/20 05:37 Menthol/Methyl Salicylate (Bengay Cream) apply to lower extremit... TIDP PRN TOP mild pain 11/05/20 20:55 Pantoprazole Sodium (Protonix) 40 mg DAILY PO 11/05/20 09:00 11/10/20 08:10 Polyethylene Glycol (Miralax) 1 pkt DAILY PRN PO CONSTIPATION 11/04/20 16:25 Senna (Senokot) 1 tab QHS PO 11/04/20 21:00 Sucroferric Oxyhydroxide (Velphoro) 500 mg WM PO 11/04/20 18:00 11/07/20 12:25 DC 11/07/20 09:03 Tramadol HCl (Ultram) 50 mg Q4HP PRN PO MODERATE PAIN (PS 5-7) 11/04/20 16:25 11/06/20 21:00 KATHLEEN GILES MD Nov 10, 2020 10:51
--- NOTE | 2020-11-10 10:52 | IPNPDOC ---
PM&R Progress Note DATE OF SERVICE: Nov 10, 2020 Candy Forming Machine Operator Progress Note Subjective: Patient stating he is feeling good and thinks he is getting stronger. He has no complaints today. REVIEW OF SYSTEMS: The following is a completed review of systems and has been reviewed. Review of systems otherwise unremarkable. PAIN: Patient self reports leg cramping EYES: No recent vision changes EARS, NOSE, & THROAT: No throat pain, or dysphagia, or rhinorrhea CARDIOVASCULAR: Denies chest pain or palpitations PULMONARY: Denies shortness of breath GASTROINTESTINAL: Denies constipation/diarrhea GENITOURINARY: denies dysuria or oliguria MUSCULOSKELETAL: LE weakness NEUROLOGICAL: denies paresthesias HEMATOLOGICAL: denies easy bruising SKIN: denies rash PSYCHIATRIC: Unremarkable All other review of systems found to be negative. PHYSICAL EXAMINATION: VITAL SIGNS: Please see below. GENERAL: Pleasant and cooperative. No acute distress. HEENT: PERRL. Extraocular movements intact. Clear conjunctiva CARDIOVASCULAR: Regular rate and rhythm. No murmurs, rubs, or gallops LUNGS: Clear to auscultation bilaterally. No wheezes. No rhonchi ABDOMEN: Soft, nontender, nondistended. Positive bowel sounds. Normal active bowel sounds NEUROLOGICAL: Alert and oriented times three. Cranial nerves II through XII grossly intact. Sensation grossly intact (-) Homans bilat EXTREMITIES: 5\5 strength bilateral upper extremities. 4\5 strength right lower extremity. 4/5 strength in left lower extremity. +atrophy of quad muscles and calf muscles (improving) ASSESSMENT:50-year-old M with past medical history of HTN who presents status post rhabdomyolysis with ANDREA requiring dialysis and severe muscles weakness PLAN: 1. Rehab- PT/OT advance mobility an ADLs, strengthen/stretch/maintain ROM all 4 limbs, balance training-ambulating with RW 2. NEuro- patient with muscle atrophy and weakness due to severe rhabdomyolysis causing gait and mobility deficits, cont therapy for strengthening 3. Cardiac- hx of HTN cont BP meds, adjust prn -medicine consulted to assist in overall management 4. Resp- monitor for infection, cont CPAP for TASHA 5. Renal- acute kidney failure in setting of rhabdomyolysis following Campylobacter infection, patient urinating well, permacath removed, patient now off dialysis, renal following -s/p course of calcium acetate for hypocalcemia and velphoro for hyperphosphatemia 6. GI ppx- protonix 7. DVT ppx heparin and teds 8. Pain- tylenol, gabapentin, tramadol 9. Dispo- TBD Allergies Coded Allergies: No Known Allergies (Unverified , 03/04/14) Vital Signs Vital Signs Date Time Temp Pulse Resp B/P (MAP) Pulse Ox O2 Delivery O2 Flow Rate FiO2 11/10/20 08:10 74 153/94 11/10/20 06:00 98.4 20 95 Room Air Laboratory Data CBC/BMP Laboratory Tests 11/10/20 05:28 Labs 24H Laboratory Tests 2 11/10/20 05:28: Anion Gap 11, Glomerular Filtration Rate 19.5L, Calcium Level 9.6, Magnesium Level 2.1, Total Bilirubin 0.6, Aspartate Amino Transf (AST/SGOT) 37, Alanine Aminotransferase (ALT/SGPT) 78, Alkaline Phosphatase 102, Total Protein 7.6, Albumin 3.9, Albumin/Globulin Ratio 1.1 Current Medications Current Medications Current Medications Medications (Trade) Dose Ordered Sig/Dago Route PRN Reason Start Time Stop Time Status Last Admin Dose Admin Acetaminophen (Tylenol Tab) 650 mg Q4HP PRN PO fever/MILD PAIN (PS 1-4) 11/04/20 16:25 11/06/20 09:14 Albuterol/ Ipratropium (Combivent Respimat 100-20mcg) 1 puff RTID INH 11/04/20 21:00 11/07/20 20:16 Amlodipine Besylate (Norvasc) 10 mg DAILY PO 11/05/20 09:00 11/10/20 08:10 Bisacodyl (Dulcolax Suppository) 10 mg DAILYPRN PRN [place] CONSTIPATION 11/04/20 16:25 Calcium Acetate (Phoslo) 667 mg WM PO 11/10/20 08:00 11/10/20 08:09 Calcium Acetate (Phoslo) 1,334 mg WM PO 11/04/20 18:00 11/09/20 18:16 DC 11/09/20 17:17 Docusate Sodium (Colace) 100 mg BID PO 11/04/20 21:00 Gabapentin (Neurontin) 100 mg QHS PO 11/04/20 21:00 11/09/20 21:06 Heparin Sodium (Porcine) (Heparin) 5,000 units Q12H SC 11/04/20 21:00 11/05/20 20:31 Hydralazine HCl (Apresoline) 50 mg Q8H PO 11/04/20 22:00 11/05/20 09:42 DC 11/05/20 06:07 Hydralazine HCl (Apresoline) 75 mg Q8H PO 11/05/20 14:00 11/10/20 05:37 Labetalol HCl (Normodyne, Trandate) 100 mg Q8H PO 11/04/20 22:00 11/10/20 05:37 Menthol/Methyl Salicylate (Bengay Cream) apply to lower extremit... TIDP PRN TOP mild pain 11/05/20 20:55 Pantoprazole Sodium (Protonix) 40 mg DAILY PO 11/05/20 09:00 11/10/20 08:10 Polyethylene Glycol (Miralax) 1 pkt DAILY PRN PO CONSTIPATION 11/04/20 16:25 Senna (Senokot) 1 tab QHS PO 11/04/20 21:00 Sucroferric Oxyhydroxide (Velphoro) 500 mg WM PO 11/04/20 18:00 11/07/20 12:25 DC 11/07/20 09:03 Tramadol HCl (Ultram) 50 mg Q4HP PRN PO MODERATE PAIN (PS 5-7) 11/04/20 16:25 11/06/20 21:00 KATHLEEN GILES MD Nov 10, 2020 10:51
[2020-11-10 14:00] VITALS: BP 182/90
[2020-11-10 20:00] VITALS: BP 157/96
[2020-11-10] MEDS: GABAPENTIN 100 MG CAP PO SCH (20:37)
[2020-11-10] MEDS: SENNA 8.6 MG TAB (SENOKOT) PO SCH (20:40)
[2020-11-10] MEDS ORDERED: RAMELTEON 8 MG TAB (ROZEREM) PO PRN (21:10)
--- NOTE | 2020-11-10 22:26 | IPNPDOC ---
Subjective CC/HPI The patient is a 50-year-old male admitted with a reason for visit of Neuromuscular Disorder. Events since last encounter Feeling much better, walks with a walker, Renal function is improving, Non oliguria now. HTN controlled General: Denies: ROS Unobtainable, Chills, Night Sweats, Fatigue, Malaise, N ormal Appetite, Other Symptoms Constitutional: Denies: Chills, Fever, Malaise, Night Sweats, Weakness, Fatigue, Weight Loss, Lethargy, Other ENT: Denies: Head Aches, Ear Pain, Dysphagia, Sinus Congestion, Post Nasal Drip, Sore Throat, Epistaxis, Other Symptoms Skin: Denies: Rash, Lesions, Jaundice, Bruising, Itching, Dry, Breakdown, Nail Changes, Other Pulmonary: Denies: Dyspnea, Cough, Pleuritic Chest Pain, Other Symptoms Cardiovascular: Denies: Chest Pain, Palpitations, Orthopnea, Paroxysmal Noc. Dyspnea, Edema, Lt Headedness, Other Symptoms Gastrointestinal: Denies: Nausea, Vomiting, Abdominal Pain, Diarrhea, Constipation, Melena, Hematochezia, Other Symptoms Genitourinary: Denies: Dysuria, Frequency, Incontinence, Hematuria, Retention, Other Symptoms Hematologic: Denies: Bruising, Bleeding Excessively, Petecchia, Purpura, Enlarged Lymph Nodes, Other Hematologic Endocrine: Denies: Polydipsia, Polyphagia, Polyuria, Heat Intolerance, Cold Intolerance, Other Endocrine Sx Musculoskeletal: Denies: Neck Pain, Back Pain, Shoulder Pain, Arm Pain, Hand Pain, Leg Pain, Foot Pain, Joint Pain, Muscle Pain, Spasms, Other Symptoms Neurological: Reports: Weakness; Denies: Confusion Psych: Reports: Mood Normal Objective Physical Examination General Exam: Alert, No Acute Distress EYE EXAM: PERRLA, Conjunctiva & lids normal, EOMI ENT EXAM: Atraumatic, Mucous membr. moist/pink Neck Exam: Supple; No: JVD Chest Exam: Clear to auscultation, Normal air movement Heart Exam: Rate Normal, Normal S1, Normal S2 ABDOMEN EXAM: Normal bowel sounds, Soft; No: Tenderness Male Exam: Normal Genital Exam Extremity Exam: Normal pulses; No: Clubbing, Cyanosis, Edema Neuro Exam: Normal Speech, Strength at 5/5 X4 ext, Other (walks with walker) Psych Exam: Mental status NL, Mood NL Vital Signs/I&O Vital Signs Date Time Temp Pulse Resp B/P (MAP) Pulse Ox O2 Delivery O2 Flow Rate FiO2 11/10/20 21:29 74 160/92 11/10/20 20:00 98.9 18 98 Room Air I&O- Last 24 Hours up to 6 AM 11/10/20 06:00 Intake Total 1680 ml Output Total 2750 ml Balance -1070 ml Laboratory Data Labs 24H Laboratory Tests 2 11/10/20 05:28: Anion Gap 11, Glomerular Filtration Rate 19.5L, Calcium Level 9.6, Magnesium Level 2.1, Total Bilirubin 0.6, Aspartate Amino Transf (AST/SGOT) 37, Alanine Aminotransferase (ALT/SGPT) 78, Alkaline Phosphatase 102, Total Protein 7.6, Albumin 3.9, Albumin/Globulin Ratio 1.1 CBC/BMP Laboratory Tests 11/10/20 05:28 Current Medications Current Medications Medications (Trade) Dose Ordered Sig/Dago Route PRN Reason Start Time Stop Time Status Last Admin Dose Admin Acetaminophen (Tylenol Tab) 650 mg Q4HP PRN PO fever/MILD PAIN (PS 1-4) 11/04/20 16:25 11/06/20 09:14 Albuterol/ Ipratropium (Combivent Respimat 100-20mcg) 1 puff RTID INH 11/04/20 21:00 11/07/20 20:16 Amlodipine Besylate (Norvasc) 10 mg DAILY PO 11/05/20 09:00 11/10/20 08:10 Bisacodyl (Dulcolax Suppository) 10 mg DAILYPRN PRN [place] CONSTIPATION 11/04/20 16:25 Calcium Acetate (Phoslo) 667 mg WM PO 11/10/20 08:00 11/10/20 18:26 Calcium Acetate (Phoslo) 1,334 mg WM PO 11/04/20 18:00 11/09/20 18:16 DC 11/09/20 17:17 Docusate Sodium (Colace) 100 mg BID PO 11/04/20 21:00 Gabapentin (Neurontin) 100 mg QHS PO 11/04/20 21:00 11/10/20 20:37 Heparin Sodium (Porcine) (Heparin) 5,000 units Q12H SC 11/04/20 21:00 11/05/20 20:31 Hydralazine HCl (Apresoline) 50 mg Q8H PO 11/04/20 22:00 11/05/20 09:42 DC 11/05/20 06:07 Hydralazine HCl (Apresoline) 75 mg Q8H PO 11/05/20 14:00 11/10/20 21:29 Labetalol HCl (Normodyne, Trandate) 100 mg Q8H PO 11/04/20 22:00 11/10/20 21:29 Menthol/Methyl Salicylate (Bengay Cream) apply to lower extremit... TIDP PRN TOP mild pain 11/05/20 20:55 Pantoprazole Sodium (Protonix) 40 mg DAILY PO 11/05/20 09:00 11/10/20 08:10 Polyethylene Glycol (Miralax) 1 pkt DAILY PRN PO CONSTIPATION 11/04/20 16:25 Ramelteon (Rozerem) 8 mg QHS PRN PO INSOMNIA 11/10/20 21:10 11/10/20 21:29 Senna (Senokot) 1 tab QHS PO 11/04/20 21:00 Sucroferric Oxyhydroxide (Velphoro) 500 mg WM PO 11/04/20 18:00 11/07/20 12:25 DC 11/07/20 09:03 Tramadol HCl (Ultram) 50 mg Q4HP PRN PO MODERATE PAIN (PS 5-7) 11/04/20 16:25 11/10/20 10:53 DC 11/06/20 21:00 Allergies Coded Allergies: No Known Allergies (Unverified , 03/04/14) Assessment/Plan Date Seen The patient was seen on 11/10/20 at 22:22. Plan / VTE VTE Prophylaxis Ordered?: No Plan Orders past 48 Hours Orders Potassium Chloride (Micro-K Extencaps) (11/09/20 10:00) Calcium Acetate (Phoslo) (11/10/20 08:00) Ramelteon (Rozerem) (11/10/20 21:10) Plan Text Weakness sec to severe Rhabdomyolysis ANDREA requiring HD HTN Hyperphosphatemia PT is non oliguria now, Making >3L per day. No need of HD. Cr gradually improving. HTN controlled with multi drug regimen. Cont Phoslo for now. Follow up with nephro after DC. Hypokalemia better today. ZEINA SAAVEDRA MD Nov 10, 2020 22:26
[2020-11-11] MEDS: LABETALOL 100MG TAB PO SCH (05:18)
[2020-11-11] MEDS: **hydrALAZINE HCL** 25 MG TAB PO SCH ×3 (05:18→17:57)
[2020-11-11 06:00] VITALS: BP 158/86
[2020-11-11 07:57] LABS: BILIRUBIN,TOTAL 0.5 MG/DL (0.2-1.0); CALCIUM LEVEL 9.4 MG/DL (8.5-10.1); CREATININE FOR GFR 3.12 MG/DL (0.70-1.30); GLOMERULAR FILTRATION RATE 22.7 (>60); POTASSIUM SERUM 3.8 MEQ/L (3.5-5.1); TOTAL PROTEIN 7.6 GM/DL (6.4-8.2)
[2020-11-11] MEDS: COMBIVENT RESPIMAT 100-20MCG INHALER 4GM INH SCH ×3 (08:00→20:00)
[2020-11-11] MEDS: CALCIUM ACETATE 667MG GELCAP PO SCH (08:28)
[2020-11-11] MEDS: PANTOPRAZOLE 40MG TAB (PROTONIX) PO SCH (08:28)
[2020-11-11] MEDS: DOCUSATE SODIUM 100MG CAPSULE PO SCH ×2 (08:29→20:37)
[2020-11-11] MEDS: HEPARIN SOD (PORCINE) 5000UNITS/ML 1ML VIAL/SYRINGE SC SCH (08:29)
[2020-11-11] MEDS ORDERED: CARVedilol 12.5 MG TAB PO SCH (09:00)
--- NOTE | 2020-11-11 10:52 | IPNPDOC ---
PM&R Progress Note DATE OF SERVICE: Nov 11, 2020 Talent Development Consultant Progress Note Subjective: Patient has no complaints today other than he did not sleep well, but does not want to try a sleep aid again or go up on his gabapentin while his kidneys are still recovering. REVIEW OF SYSTEMS: The following is a completed review of systems and has been reviewed. Review of systems otherwise unremarkable. PAIN: Patient self reports leg cramping EYES: No recent vision changes EARS, NOSE, & THROAT: No throat pain, or dysphagia, or rhinorrhea CARDIOVASCULAR: Denies chest pain or palpitations PULMONARY: Denies shortness of breath GASTROINTESTINAL: Denies constipation/diarrhea GENITOURINARY: denies dysuria or oliguria MUSCULOSKELETAL: LE weakness (improving) NEUROLOGICAL: denies paresthesias HEMATOLOGICAL: denies easy bruising SKIN: denies rash PSYCHIATRIC: Unremarkable All other review of systems found to be negative. PHYSICAL EXAMINATION: VITAL SIGNS: Please see below. GENERAL: Pleasant and cooperative. No acute distress. HEENT: PERRL. Extraocular movements intact. Clear conjunctiva CARDIOVASCULAR: Regular rate and rhythm. No murmurs, rubs, or gallops LUNGS: Clear to auscultation bilaterally. No wheezes. No rhonchi ABDOMEN: Soft, nontender, nondistended. Positive bowel sounds. Normal active bowel sounds NEUROLOGICAL: Alert and oriented times three. Cranial nerves II through XII grossly intact. Sensation grossly intact (-) Homans bilat EXTREMITIES: 5\5 strength bilateral upper extremities. 4\5 strength right lower extremity. 4/5 strength in left lower extremity. +atrophy of quad muscles and calf muscles (improving) ASSESSMENT:50-year-old M with past medical history of HTN who presents status post rhabdomyolysis with ADNREA requiring dialysis and severe muscles weakness PLAN: 1. Rehab- PT/OT advance mobility an ADLs, strengthen/stretch/maintain ROM all 4 limbs, balance training-ambulating with RW 2. NEuro- patient with muscle atrophy and weakness due to severe rhabdomyolysis causing gait and mobility deficits, cont therapy for strengthening 3. Cardiac- hx of HTN cont BP meds, adjust prn -medicine consulted to assist in overall management 4. Resp- monitor for infection, cont CPAP for TASHA 5. Renal- acute kidney failure in setting of rhabdomyolysis following Campylobacter infection, patient urinating well, permacath removed, patient now off dialysis, renal following -s/p course of calcium acetate for hypocalcemia and velphoro for hyperphosphatemia 6. GI ppx- protonix 7. DVT ppx heparin and teds 8. Pain- tylenol, gabapentin 9. Dispo- 11-13-20 to home, progressing towards goals Allergies Coded Allergies: No Known Allergies (Unverified , 03/04/14) Vital Signs Vital Signs Date Time Temp Pulse Resp B/P (MAP) Pulse Ox O2 Delivery O2 Flow Rate FiO2 11/11/20 10:10 80 138/88 11/11/20 06:00 98.1 18 98 Room Air Laboratory Data CBC/BMP Laboratory Tests 11/11/20 06:57 Labs 24H Laboratory Tests 2 11/11/20 06:57: Anion Gap 10, Glomerular Filtration Rate 22.7L, Calcium Level 9.4, Magnesium Level 2.0, Total Bilirubin 0.5, Aspartate Amino Transf (AST/SGOT) 36, Alanine Aminotransferase (ALT/SGPT) 71, Alkaline Phosphatase 104, Total Protein 7.6, Albumin 4.0, Albumin/Globulin Ratio 1.1 Current Medications Current Medications Current Medications Medications (Trade) Dose Ordered Sig/Dago Route PRN Reason Start Time Stop Time Status Last Admin Dose Admin Acetaminophen (Tylenol Tab) 650 mg Q4HP PRN PO fever/MILD PAIN (PS 1-4) 11/04/20 16:25 11/06/20 09:14 Albuterol/ Ipratropium (Combivent Respimat 100-20mcg) 1 puff RTID INH 11/04/20 21:00 11/07/20 20:16 Amlodipine Besylate (Norvasc) 10 mg DAILY PO 11/05/20 09:00 11/11/20 08:29 Bisacodyl (Dulcolax Suppository) 10 mg DAILYPRN PRN [place] CONSTIPATION 11/04/20 16:25 Calcium Acetate (Phoslo) 667 mg WM PO 11/10/20 08:00 11/11/20 09:46 DC 11/11/20 08:28 Calcium Acetate (Phoslo) 1,334 mg WM PO 11/04/20 18:00 11/09/20 18:16 DC 11/09/20 17:17 Carvedilol (COReg) 12.5 mg BID PO 11/11/20 09:00 11/11/20 10:10 Docusate Sodium (Colace) 100 mg BID PO 11/04/20 21:00 Gabapentin (Neurontin) 100 mg QHS PO 11/04/20 21:00 11/10/20 20:37 Heparin Sodium (Porcine) (Heparin) 5,000 units Q12H SC 11/04/20 21:00 11/05/20 20:31 Hydralazine HCl (Apresoline) 50 mg Q8H PO 11/04/20 22:00 11/05/20 09:42 DC 11/05/20 06:07 Hydralazine HCl (Apresoline) 75 mg Q8H PO 11/05/20 14:00 11/11/20 05:18 Labetalol HCl (Normodyne, Trandate) 100 mg Q8H PO 11/04/20 22:00 11/11/20 09:43 DC 11/11/20 05:18 Menthol/Methyl Salicylate (Bengay Cream) apply to lower extremit... TIDP PRN TOP mild pain 11/05/20 20:55 Pantoprazole Sodium (Protonix) 40 mg DAILY PO 11/05/20 09:00 11/11/20 08:28 Polyethylene Glycol (Miralax) 1 pkt DAILY PRN PO CONSTIPATION 11/04/20 16:25 Ramelteon (Rozerem) 8 mg QHS PRN PO INSOMNIA 11/10/20 21:10 11/10/20 21:29 Senna (Senokot) 1 tab QHS PO 11/04/20 21:00 Sucroferric Oxyhydroxide (Velphoro) 500 mg WM PO 11/04/20 18:00 11/07/20 12:25 DC 11/07/20 09:03 Tramadol HCl (Ultram) 50 mg Q4HP PRN PO MODERATE PAIN (PS 5-7) 11/04/20 16:25 11/10/20 10:53 DC 11/06/20 21:00 KATHLEEN GILES MD Nov 11, 2020 10:52
--- NOTE | 2020-11-11 13:13 | IPNPDOC ---
Subjective CC/HPI The patient is a 50-year-old male admitted with a reason for visit of Neuromuscular Disorder. Events since last encounter Feels much better, Strength improving, Renal function gradually improving General: Denies: ROS Unobtainable, Chills, Night Sweats, Fatigue, Malaise, Normal Appetite, Other Symptoms Constitutional: Denies: Chills, Fever, Malaise, Night Sweats, Weakness, Fatig ue, Weight Loss, Lethargy, Other Eyes: Denies: Pain, Vision change, Conjunctivae inflammation, Eyelid inflammation, Redness, Other ENT: Denies: Head Aches, Ear Pain, Dysphagia, Sinus Congestion, Post Nasal Drip, Sore Throat, Epistaxis, Other Symptoms Skin: Denies: Rash, Lesions, Jaundice, Bruising, Itching, Dry, Breakdown, Nail Changes, Other Pulmonary: Denies: Dyspnea, Cough, Pleuritic Chest Pain, Other Symptoms Cardiovascular: Denies: Chest Pain, Palpitations, Orthopnea, Paroxysmal Noc. Dyspnea, Edema, Lt Headedness, Other Symptoms Gastrointestinal: Denies: Nausea, Vomiting, Abdominal Pain, Diarrhea, Constipation, Melena, Hematochezia, Other Symptoms Genitourinary: Denies: Dysuria, Frequency, Incontinence, Hematuria, Retention, Other Symptoms Hematologic: Denies: Bruising, Bleeding Excessively, Petecchia, Purpura, Enlarged Lymph Nodes, Other Hematologic Musculoskeletal: Denies: Neck Pain, Back Pain, Shoulder Pain, Arm Pain, Hand Pain, Leg Pain, Foot Pain, Joint Pain, Muscle Pain, Spasms, Other Symptoms Neurological: Denies: Weakness, Numbness, Incoordination, Change in speech, Confusion, Seizures, Other Symptoms Psych: Reports: Mood Normal Objective Physical Examination General Exam: Alert, No Acute Distress EYE EXAM: PERRLA, Conjunctiva & lids normal, EOMI ENT EXAM: Atraumatic, Mucous membr. moist/pink Neck Exam: Supple; No: JVD Chest Exam: Clear to auscultation, Normal air movement Heart Exam: Rate Normal, Normal S1, Normal S2 ABDOMEN EXAM: Normal bowel sounds, Soft; No: Tenderness Male Exam: Normal Genital Exam Extremity Exam: Normal pulses; No: Clubbing, Cyanosis, Edema Neuro Exam: Normal Speech, Strength at 5/5 X4 ext, Other (walks with walker) Psych Exam: Mental status NL, Mood NL Vital Signs/I&O Vital Signs Date Time Temp Pulse Resp B/P (MAP) Pulse Ox O2 Delivery O2 Flow Rate FiO2 11/11/20 10:10 80 138/88 11/11/20 06:00 98.1 18 98 Room Air I&O- Last 24 Hours up to 6 AM 11/11/20 06:00 Intake Total 3080 ml Output Total 3150 ml Balance -70 ml Laboratory Data Labs 24H Laboratory Tests 2 11/11/20 06:57: Anion Gap 10, Glomerular Filtration Rate 22.7L, Calcium Level 9.4, Magnesium Level 2.0, Total Bilirubin 0.5, Aspartate Amino Transf (AST/SGOT) 36, Alanine Aminotransferase (ALT/SGPT) 71, Alkaline Phosphatase 104, Total Protein 7.6, Albumin 4.0, Albumin/Globulin Ratio 1.1 CBC/BMP Laboratory Tests 11/11/20 06:57 Current Medications Current Medications Medications (Trade) Dose Ordered Sig/Dago Route PRN Reason Start Time Stop Time Status Last Admin Dose Admin Acetaminophen (Tylenol Tab) 650 mg Q4HP PRN PO fever/MILD PAIN (PS 1-4) 11/04/20 16:25 11/06/20 09:14 Albuterol/ Ipratropium (Combivent Respimat 100-20mcg) 1 puff RTID INH 11/04/20 21:00 11/07/20 20:16 Amlodipine Besylate (Norvasc) 10 mg DAILY PO 11/05/20 09:00 11/11/20 08:29 Bisacodyl (Dulcolax Suppository) 10 mg DAILYPRN PRN [place] CONSTIPATION 11/04/20 16:25 Calcium Acetate (Phoslo) 667 mg WM PO 11/10/20 08:00 11/11/20 09:46 DC 11/11/20 08:28 Calcium Acetate (Phoslo) 1,334 mg WM PO 11/04/20 18:00 11/09/20 18:16 DC 11/09/20 17:17 Carvedilol (COReg) 12.5 mg BID PO 11/11/20 09:00 11/11/20 10:10 Docusate Sodium (Colace) 100 mg BID PO 11/04/20 21:00 Gabapentin (Neurontin) 100 mg QHS PO 11/04/20 21:00 11/10/20 20:37 Heparin Sodium (Porcine) (Heparin) 5,000 units Q12H SC 11/04/20 21:00 11/05/20 20:31 Hydralazine HCl (Apresoline) 50 mg Q8H PO 11/04/20 22:00 11/05/20 09:42 DC 11/05/20 06:07 Hydralazine HCl (Apresoline) 75 mg Q8H PO 11/05/20 14:00 11/11/20 05:18 Labetalol HCl (Normodyne, Trandate) 100 mg Q8H PO 11/04/20 22:00 11/11/20 09:43 DC 11/11/20 05:18 Menthol/Methyl Salicylate (Bengay Cream) apply to lower extremit... TIDP PRN TOP mild pain 11/05/20 20:55 Pantoprazole Sodium (Protonix) 40 mg DAILY PO 11/05/20 09:00 11/11/20 08:28 Polyethylene Glycol (Miralax) 1 pkt DAILY PRN PO CONSTIPATION 11/04/20 16:25 Ramelteon (Rozerem) 8 mg QHS PRN PO INSOMNIA 11/10/20 21:10 11/10/20 21:29 Senna (Senokot) 1 tab QHS PO 11/04/20 21:00 Sucroferric Oxyhydroxide (Velphoro) 500 mg WM PO 11/04/20 18:00 11/07/20 12:25 DC 11/07/20 09:03 Tramadol HCl (Ultram) 50 mg Q4HP PRN PO MODERATE PAIN (PS 5-7) 11/04/20 16:25 11/10/20 10:53 DC 11/06/20 21:00 Allergies Coded Allergies: No Known Allergies (Unverified , 03/04/14) Assessment/Plan Date Seen The patient was seen on 11/11/20 at 13:10. Plan / VTE VTE Prophylaxis Ordered?: No Plan Orders past 48 Hours Orders Calcium Acetate (Phoslo) (11/10/20 08:00) Ramelteon (Rozerem) (11/10/20 21:10) Arrange Follow Up With: (11/11/20 09:41) Carvedilol (Coreg) (11/11/20 09:00) Plan Text Weakness sec to severe Rhabdomyolysis ANDREA requiring HD HTN Hyperphosphatemia Pt is non oliguric now, Making >3L per day. Cr gradually improving. BP still l abile. Stop Labetalol and start Coreg 12.5 mg bid. Stop Phoslo now. Follow up with nephro after DC. OK to DC from Nephrology standpoint ZEINA SAAVEDRA MD Nov 11, 2020 13:13
[2020-11-11 14:00] VITALS: BP_SYST 188; BP_SYST 189; BP_DIAS 100
[2020-11-11 17:56] VITALS: BP 162/98
[2020-11-11] MEDS: GABAPENTIN 100 MG CAP PO SCH (20:37)
[2020-11-11] MEDS: SENNA 8.6 MG TAB (SENOKOT) PO SCH (20:37)
[2020-11-11] MEDS: CARVedilol 12.5 MG TAB PO SCH (20:44)
[2020-11-12] MEDS: **hydrALAZINE HCL** 25 MG TAB PO SCH ×4 (00:05→21:21)
[2020-11-12 06:00] VITALS: BP 158/92
[2020-11-12] MEDS: COMBIVENT RESPIMAT 100-20MCG INHALER 4GM INH SCH ×3 (07:41→20:00)
[2020-11-12 08:16] LABS: ALBUMIN 4.1 GM/DL (3.2-5.2); BILIRUBIN,TOTAL 0.6 MG/DL (0.2-1.0); CALCIUM LEVEL 9.4 MG/DL (8.5-10.1); CREATININE FOR GFR 2.53 MG/DL (0.70-1.30); MAGNESIUM LEVEL 1.9 MG/DL (1.8-2.4); POTASSIUM SERUM 3.8 MEQ/L (3.5-5.1); TOTAL PROTEIN 7.8 GM/DL (6.4-8.2)
[2020-11-12] MEDS: CARVedilol 12.5 MG TAB PO SCH ×2 (08:44→21:21)
[2020-11-12] MEDS: PANTOPRAZOLE 40MG TAB (PROTONIX) PO SCH (08:44)
[2020-11-12] MEDS: DOCUSATE SODIUM 100MG CAPSULE PO SCH ×2 (08:45→21:00)
[2020-11-12] MEDS: ISOSORBIDE MON. (IMDUR) 30 MG XR TAB PO SCH (11:38)
--- NOTE | 2020-11-12 12:01 | IPNPDOC ---
PM&R Progress Note DATE OF SERVICE: Nov 12, 2020 [employer] Operator Progress Note Subjective: REVIEW OF SYSTEMS: The following is a completed review of systems and has been reviewed. Review of systems otherwise unremarkable. PAIN: Patient self reports leg cramping EYES: No recent vision changes EARS, NOSE, & THROAT: No throat pain, or dysphagia, or rhinorrhea CARDIOVASCULAR: Denies chest pain or palpitations PULMONARY: Denies shortness of breath GASTROINTESTINAL: Denies constipation/diarrhea GENITOURINARY: denies dysuria or oliguria MUSCULOSKELETAL: LE weakness (improving) NEUROLOGICAL: denies paresthesias HEMATOLOGICAL: denies easy bruising SKIN: denies rash PSYCHIATRIC: Unremarkable All other review of systems found to be negative. PHYSICAL EXAMINATION: VITAL SIGNS: Please see below. GENERAL: Pleasant and cooperative. No acute distress. HEENT: PERRL. Extraocular movements intact. Clear conjunctiva CARDIOVASCULAR: Regular rate and rhythm. No murmurs, rubs, or gallops LUNGS: Clear to auscultation bilaterally. No wheezes. No rhonchi ABDOMEN: Soft, nontender, nondistended. Positive bowel sounds. Normal active bowel sounds NEUROLOGICAL: Alert and oriented times three. Cranial nerves II through XII grossly intact. Sensation grossly intact (-) Homans bilat EXTREMITIES: 5\5 strength bilateral upper extremities. 4\5 strength right lower extremity. 4/5 strength in left lower extremity. +atrophy of quad muscles and calf muscles (improving) ASSESSMENT:50-year-old M with past medical history of HTN who presents status post rhabdomyolysis with ANDREA requiring dialysis and severe muscles weakness PLAN: 1. Rehab- PT/OT advance mobility an ADLs, strengthen/stretch/maintain ROM all 4 limbs, balance training-ambulating with RW 2. NEuro- patient with muscle atrophy and weakness due to severe rhabdomyolysis causing gait and mobility deficits, cont therapy for strengthening 3. Cardiac- hx of HTN cont BP meds, adjust prn -medicine consulted to assist in overall management 4. Resp- monitor for infection, cont CPAP for TASHA 5. Renal- acute kidney failure in setting of rhabdomyolysis following Campylob acter infection, patient urinating well, permacath removed, patient now off dialysis, renal following -s/p course of calcium acetate for hypocalcemia and velphoro for hyperphosphatemia 6. GI ppx- protonix 7. DVT ppx heparin and teds 8. Pain- tylenol, gabapentin 9. Dispo- 11-13-20 to home, progressing towards goals Allergies Coded Allergies: No Known Allergies (Unverified , 03/04/14) Vital Signs Vital Signs Date Time Temp Pulse Resp B/P (MAP) Pulse Ox O2 Delivery O2 Flow Rate FiO2 11/12/20 08:44 72 158/92 11/12/20 06:00 98.0 18 98 Room Air Laboratory Data CBC/BMP Laboratory Tests 11/12/20 07:03 Labs 24H Laboratory Tests 2 11/12/20 07:03: Anion Gap 10, Glomerular Filtration Rate 29.0L, Calcium Level 9.4, Magnesium Level 1.9, Total Bilirubin 0.6, Aspartate Amino Transf (AST/SGOT) 36, Alanine Aminotransferase (ALT/SGPT) 66, Alkaline Phosphatase 112, Total Protein 7.8, Albumin 4.1, Albumin/Globulin Ratio 1.1 Current Medications Current Medications Current Medications Medications (Trade) Dose Ordered Sig/Dago Route PRN Reason Start Time Stop Time Status Last Admin Dose Admin Acetaminophen (Tylenol Tab) 650 mg Q4HP PRN PO fever/MILD PAIN (PS 1-4) 11/04/20 16:25 11/06/20 09:14 Albuterol/ Ipratropium (Combivent Respimat 100-20mcg) 1 puff RTID INH 11/04/20 21:00 11/07/20 20:16 Amlodipine Besylate (Norvasc) 10 mg DAILY PO 11/05/20 09:00 11/12/20 08:44 Bisacodyl (Dulcolax Suppository) 10 mg DAILYPRN PRN [place] CONSTIPATION 11/04/20 16:25 Calcium Acetate (Phoslo) 667 mg WM PO 11/10/20 08:00 11/11/20 09:46 DC 11/11/20 08:28 Calcium Acetate (Phoslo) 1,334 mg WM PO 11/04/20 18:00 11/09/20 18:16 DC 11/09/20 17:17 Carvedilol (COReg) 12.5 mg BID PO 11/11/20 09:00 11/11/20 14:45 DC 11/11/20 10:10 Carvedilol (COReg) 25 mg BID PO 11/11/20 21:00 11/12/20 08:44 Docusate Sodium (Colace) 100 mg BID PO 11/04/20 21:00 Gabapentin (Neurontin) 100 mg QHS PO 11/04/20 21:00 11/11/20 20:37 Heparin Sodium (Porcine) (Heparin) 5,000 units Q12H SC 11/04/20 21:00 11/11/20 14:45 DC 11/05/20 20:31 Hydralazine HCl (Apresoline) 50 mg Q8H PO 11/04/20 22:00 11/05/20 09:42 DC 11/05/20 06:07 Hydralazine HCl (Apresoline) 75 mg Q6H PO 11/11/20 18:00 11/12/20 09:28 DC 11/12/20 05:41 Hydralazine HCl (Apresoline) 75 mg Q8H PO 11/05/20 14:00 11/11/20 14:45 DC 11/11/20 14:25 Hydralazine HCl (Apresoline) 75 mg Q8H PO 11/12/20 14:00 Isosorbide Mononitrate (Imdur) 30 mg QAM PO 11/12/20 09:25 11/12/20 11:38 Labetalol HCl (Normodyne, Trandate) 100 mg Q8H PO 11/04/20 22:00 11/11/20 09:43 DC 11/11/20 05:18 Menthol/Methyl Salicylate (Bengay Cream) apply to lower extremit... TIDP PRN TOP mild pain 11/05/20 20:55 Pantoprazole Sodium (Protonix) 40 mg DAILY PO 11/05/20 09:00 11/12/20 08:44 Polyethylene Glycol (Miralax) 1 pkt DAILY PRN PO CONSTIPATION 11/04/20 16:25 Ramelteon (Rozerem) 8 mg QHS PRN PO INSOMNIA 11/10/20 21:10 11/11/20 14:45 DC 11/10/20 21:29 Senna (Senokot) 1 tab QHS PO 11/04/20 21:00 Sucroferric Oxyhydroxide (Velphoro) 500 mg WM PO 11/04/20 18:00 11/07/20 12:25 DC 11/07/20 09:03 Tramadol HCl (Ultram) 50 mg Q4HP PRN PO MODERATE PAIN (PS 5-7) 11/04/20 16:25 11/10/20 10:53 DC 11/06/20 21:00 KATHLEEN GILES MD Nov 12, 2020 12:01
[2020-11-12 14:00] VITALS: BP 146/68
[2020-11-12 20:00] VITALS: BP 141/79
[2020-11-12] MEDS: SENNA 8.6 MG TAB (SENOKOT) PO SCH (21:00)
[2020-11-12] MEDS: GABAPENTIN 100 MG CAP PO SCH (21:19)
[2020-11-12] MEDS: ACETAMINOPHEN TAB 650MG DOSE (2X325MG) PO PRN (21:19)
--- NOTE | 2020-11-12 22:16 | IPNPDOC ---
Subjective CC/HPI The patient is a 50-year-old male admitted with a reason for visit of Neuromuscular Disorder. Events since last encounter Pt feels better with every passing day. BP is still labile. Coreg and Hydralazine was increased by PMR. Renal function improving. He is walking with Cane now. General: Denies: ROS Unobtainable, Chills, Night Sweats, Fatigue, Malaise, Normal Appetite, Other Symptoms Constitutional: Denies: Chills, Fever, Malaise, Night Sweats, Weakness, Fatigue, Weight Loss, Lethargy, Other Eyes: Denies: Pain, Vision change, Conjunctivae inflammation, Eyelid inflammation, Redness, Other ENT: Denies: Head Aches, Ear Pain, Dysphagia, Sinus Congestion, Post Nasal Drip, Sore Throat, Epistaxis, Other Symptoms Skin: Denies: Rash, Lesions, Jaundice, Bruising, Itching, Dry, Breakdown, Nail Changes, Other Pulmonary: Denies: Dyspnea, Cough, Pleuritic Chest Pain, Other Symptoms Cardiovascular: Denies: Chest Pain, Palpitations, Orthopnea, Paroxysmal Noc. Dyspnea, Edema, Lt Headedness, Other Symptoms Gastrointestinal: Denies: Nausea, Vomiting, Abdominal Pain, Diarrhea, Constipation, Melena, Hematochezia, Other Symptoms Genitourinary: Denies: Dysuria, Frequency, Incontinence, Hematuria, Retention, Other Symptoms Hematologic: Denies: Bruising, Bleeding Excessively, Petecchia, Purpura, Enlarged Lymph Nodes, Other Hematologic Musculoskeletal: Denies: Neck Pain, Back Pain, Shoulder Pain, Arm Pain, Hand Pain, Leg Pain, Foot Pain, Joint Pain, Muscle Pain, Spasms, Other Symptoms Neurological: Reports: Weakness (Improving. ) Psych: Reports: Mood Normal Objective Physical Examination General Exam: Alert, No Acute Distress EYE EXAM: PERRLA, Conjunctiva & lids normal, EOMI ENT EXAM: Atraumatic, Mucous membr. moist/pink Neck Exam: Supple; No: JVD Chest Exam: Clear to auscultation, Normal air movement Heart Exam: Rate Normal, Normal S1, Normal S2 ABDOMEN EXAM: Normal bowel sounds, Soft; No: Tenderness Male Exam: Normal Genital Exam Extremity Exam: Normal pulses; No: Clubbing, Cyanosis, Edema Neuro Exam: Normal Speech, Strength at 5/5 X4 ext, Other (walks with cane) Psych Exam: Mental status NL, Mood NL Vital Signs/I&O Vital Signs Date Time Temp Pulse Resp B/P (MAP) Pulse Ox O2 Delivery O2 Flow Rate FiO2 11/12/20 21:21 125/60 11/12/20 20:00 99.1 72 18 98 Room Air I&O- Last 24 Hours up to 6 AM 11/12/20 06:00 Intake Total 750 ml Output Total 2500 ml Balance -1750 ml Laboratory Data Labs 24H Laboratory Tests 2 11/12/20 07:03: Anion Gap 10, Glomerular Filtration Rate 29.0L, Calcium Level 9.4, Magnesium Level 1.9, Total Bilirubin 0.6, Aspartate Amino Transf (AST/SGOT) 36, Alanine Aminotransferase (ALT/SGPT) 66, Alkaline Phosphatase 112, Total Protein 7.8, Albumin 4.1, Albumin/Globulin Ratio 1.1 CBC/BMP Laboratory Tests 11/12/20 07:03 Current Medications Current Medications Medications (Trade) Dose Ordered Sig/Dago Route PRN Reason Start Time Stop Time Status Last Admin Dose Admin Acetaminophen (Tylenol Tab) 650 mg Q4HP PRN PO fever/MILD PAIN (PS 1-4) 11/04/20 16:25 11/12/20 21:19 Albuterol/ Ipratropium (Combivent Respimat 100-20mcg) 1 puff RTID INH 11/04/20 21:00 11/07/20 20:16 Amlodipine Besylate (Norvasc) 10 mg DAILY PO 11/05/20 09:00 11/12/20 08:44 Bisacodyl (Dulcolax Suppository) 10 mg DAILYPRN PRN [place] CONSTIPATION 11/04/20 16:25 Calcium Acetate (Phoslo) 667 mg WM PO 11/10/20 08:00 11/11/20 09:46 DC 11/11/20 08:28 Calcium Acetate (Phoslo) 1,334 mg WM PO 11/04/20 18:00 11/09/20 18:16 DC 11/09/20 17:17 Carvedilol (COReg) 12.5 mg BID PO 11/11/20 09:00 11/11/20 14:45 DC 11/11/20 10:10 Carvedilol (COReg) 25 mg BID PO 11/11/20 21:00 11/12/20 21:21 Docusate Sodium (Colace) 100 mg BID PO 11/04/20 21:00 Gabapentin (Neurontin) 100 mg QHS PO 11/04/20 21:00 11/12/20 21:19 Heparin Sodium (Porcine) (Heparin) 5,000 units Q12H SC 11/04/20 21:00 11/11/20 14:45 DC 11/05/20 20:31 Hydralazine HCl (Apresoline) 50 mg Q8H PO 11/04/20 22:00 11/05/20 09:42 DC 11/05/20 06:07 Hydralazine HCl (Apresoline) 75 mg Q6H PO 11/11/20 18:00 11/12/20 09:28 DC 11/12/20 05:41 Hydralazine HCl (Apresoline) 75 mg Q8H PO 11/05/20 14:00 11/11/20 14:45 DC 11/11/20 14:25 Hydralazine HCl (Apresoline) 75 mg Q8H PO 11/12/20 14:00 11/12/20 21:21 Isosorbide Mononitrate (Imdur) 30 mg QAM PO 11/12/20 09:25 11/12/20 11:38 Labetalol HCl (Normodyne, Trandate) 100 mg Q8H PO 11/04/20 22:00 11/11/20 09:43 DC 11/11/20 05:18 Menthol/Methyl Salicylate (Bengay Cream) apply to lower extremit... TIDP PRN TOP mild pain 11/05/20 20:55 Pantoprazole Sodium (Protonix) 40 mg DAILY PO 11/05/20 09:00 11/12/20 08:44 Polyethylene Glycol (Miralax) 1 pkt DAILY PRN PO CONSTIPATION 11/04/20 16:25 Ramelteon (Rozerem) 8 mg QHS PRN PO INSOMNIA 11/10/20 21:10 11/11/20 14:45 DC 11/10/20 21:29 Senna (Senokot) 1 tab QHS PO 11/04/20 21:00 Sucroferric Oxyhydroxide (Velphoro) 500 mg WM PO 11/04/20 18:00 11/07/20 12:25 DC 11/07/20 09:03 Tramadol HCl (Ultram) 50 mg Q4HP PRN PO MODERATE PAIN (PS 5-7) 11/04/20 16:25 11/10/20 10:53 DC 11/06/20 21:00 Allergies Coded Allergies: No Known Allergies (Unverified , 03/04/14) Assessment/Plan Date Seen The patient was seen on 11/12/20 in AM. Plan / VTE VTE Prophylaxis Ordered?: No Plan Orders past 48 Hours Orders Arrange Follow Up With: (11/11/20 09:41) Carvedilol (Coreg) (11/11/20 09:00) Carvedilol (Coreg) (11/11/20 21:00) Hydralazine Hcl (Apresoline) (11/11/20 18:00) Hydralazine Hcl (Apresoline) (11/12/20 14:00) Isosorbide Mononitrate Xr (Imdur) (11/12/20 09:25) Room Privileges (Pm&R) (11/12/20 12:28) Plan Text Weakness sec to severe Rhabdomyolysis ANDREA requiring HD HTN (Labile) Cr gradually improving. BP still labile. Increased Coreg 25 mg bid. Decrease Hydralazine to tid. Added Isosorbide 30 mg. ZEINA SAAVEDRA MD Nov 12, 2020 22:16
[2020-11-13 05:40] VITALS: BP 142/80
[2020-11-13] MEDS: **hydrALAZINE HCL** 25 MG TAB PO SCH (05:52)
[2020-11-13 05:53] LABS: ALBUMIN 3.8 GM/DL (3.2-5.2); BILIRUBIN,TOTAL 0.6 MG/DL (0.2-1.0); CALCIUM LEVEL 9.3 MG/DL (8.5-10.1); CREATININE FOR GFR 2.47 MG/DL (0.70-1.30); GLOMERULAR FILTRATION RATE 29.8 (>60); MAGNESIUM LEVEL 1.8 MG/DL (1.8-2.4); POTASSIUM SERUM 3.6 MEQ/L (3.5-5.1); TOTAL PROTEIN 7.4 GM/DL (6.4-8.2)
[2020-11-13] MEDS: COMBIVENT RESPIMAT 100-20MCG INHALER 4GM INH SCH ×2 (08:00→13:17)
[2020-11-13] MEDS: PANTOPRAZOLE 40MG TAB (PROTONIX) PO SCH (08:39)
[2020-11-13] MEDS: DOCUSATE SODIUM 100MG CAPSULE PO SCH (08:39)
[2020-11-13 08:40] VITALS: BP 142/80
[2020-11-13] MEDS: CARVedilol 12.5 MG TAB PO SCH (08:40)
[2020-11-13] MEDS: ISOSORBIDE MON. (IMDUR) 30 MG XR TAB PO SCH (08:40)
[2020-11-13] MEDS ORDERED: ISOS1TAB35 PO (09:36)
[2020-11-13] MEDS ORDERED: AMLO1TAB25 PO (09:36)
[2020-11-13] MEDS ORDERED: SUPETAB44 PO (09:36)
[2020-11-13] MEDS ORDERED: HYDR50TA PO (09:36)
[2020-11-13] MEDS ORDERED: CARV25TA PO (09:36)
[2020-11-13] MEDS ORDERED: GABA-1171 PO (09:36)
[2020-11-13] MEDS ORDERED: **hydrALAZINE** 50 MG TAB PO SCH (14:00)
--- NOTE | 2020-11-13 22:08 | IPNPDOC ---
Subjective CC/HPI The patient is a 50-year-old male admitted with a reason for visit of Neuromuscular Disorder. Events since last encounter Very happy today. He is going to be discharged home. Renal function improving. BP is better controlled with current regimen. General: Reports: ROS Unobtainable; Denies: Chills, Night Sweats, Fatigue, Malaise, Normal Appetite, Other Symptoms Constitutional: Denies: Chills, Fever, Malaise, Night Sweats, Weakness, Fatigue, Weight Loss, Lethargy, Other Eyes: Denies: Pain, Vision change, Conjunctivae inflammation, Eyelid inflammation, Redness, Other ENT: Denies: Head Aches, Ear Pain, Dysphagia, Sinus Congestion, Post Nasal Drip, Sore Throat, Epistaxis, Other Symptoms Skin: Denies: Rash, Lesions, Jaundice, Bruising, Itching, Dry, Breakdown, Nail Changes, Other Pulmonary: Denies: Dyspnea, Cough, Pleuritic Chest Pain, Other Symptoms Cardiovascular: Denies: Chest Pain, Palpitations, Orthopnea, Paroxysmal Noc. Dyspnea, Edema, Lt Headedness, Other Symptoms Gastrointestinal: Denies: Nausea, Vomiting, Abdominal Pain, Diarrhea, Constipation, Melena, Hematochezia, Other Symptoms Genitourinary: Denies: Dysuria, Frequency, Incontinence, Hematuria, Retention, Other Symptoms Musculoskeletal: Denies: Neck Pain, Back Pain, Shoulder Pain, Arm Pain, Hand Pain, Leg Pain, Foot Pain, Joint Pain, Muscle Pain, Spasms, Other Symptoms Neurological: Denies: Weakness, Numbness, Incoordination, Change in speech, Confusion, Seizures, Other Symptoms Psych: Reports: Mood Normal Objective Physical Examination General Exam: Alert, No Acute Distress EYE EXAM: PERRLA, Conjunctiva & lids normal, EOMI ENT EXAM: Atraumatic, Mucous membr. moist/pink Neck Exam: Supple; No: JVD Chest Exam: Clear to auscultation, Normal air movement Heart Exam: Rate Normal, Normal S1, Normal S2 ABDOMEN EXAM: Normal bowel sounds, Soft; No: Tenderness Male Exam: Normal Genital Exam Extremity Exam: Normal pulses; No: Clubbing, Cyanosis, Edema Neuro Exam: Normal Speech, Strength at 5/5 X4 ext, Other (walks with cane) Psych Exam: Mental status NL, Mood NL Vital Signs/I&O Vital Signs Date Time Temp Pulse Resp B/P (MAP) Pulse Ox O2 Delivery O2 Flow Rate FiO2 11/13/20 08:40 142/80 11/13/20 08:40 68 11/13/20 05:40 98.8 18 98 11/12/20 20:00 Room Air I&O- Last 24 Hours up to 6 AM 11/13/20 06:00 Intake Total 1020 ml Output Total 3000 ml Balance -1980 ml Laboratory Data Labs 24H Laboratory Tests 2 11/13/20 05:12: Anion Gap 8, Glomerular Filtration Rate 29.8L, Calcium Level 9.3, Magnesium Level 1.8, Total Bilirubin 0.6, Aspartate Amino Transf (AST/SGOT) 32, Alanine Aminotransferase (ALT/SGPT) 60, Alkaline Phosphatase 101, Total Protein 7.4, Albumin 3.8, Albumin/Globulin Ratio 1.1 CBC/BMP Laboratory Tests 11/13/20 05:12 Current Medications Current Medications Medications (Trade) Dose Ordered Sig/Dago Route PRN Reason Start Time Stop Time Status Last Admin Dose Admin Acetaminophen (Tylenol Tab) 650 mg Q4HP PRN PO fever/MILD PAIN (PS 1-4) 11/04/20 16:25 11/13/20 15:32 DC 11/12/20 21:19 Albuterol/ Ipratropium (Combivent Respimat 100-20mcg) 1 puff RTID INH 11/04/20 21:00 11/13/20 15:32 DC 11/07/20 20:16 Amlodipine Besylate (Norvasc) 10 mg DAILY PO 11/05/20 09:00 11/13/20 15:32 DC 11/13/20 08:40 Bisacodyl (Dulcolax Suppository) 10 mg DAILYPRN PRN [place] CONSTIPATION 11/04/20 16:25 11/13/20 15:32 DC Calcium Acetate (Phoslo) 667 mg WM PO 11/10/20 08:00 11/11/20 09:46 DC 11/11/20 08:28 Calcium Acetate (Phoslo) 1,334 mg WM PO 11/04/20 18:00 11/09/20 18:16 DC 11/09/20 17:17 Carvedilol (COReg) 12.5 mg BID PO 11/11/20 09:00 11/11/20 14:45 DC 11/11/20 10:10 Carvedilol (COReg) 25 mg BID PO 11/11/20 21:00 11/13/20 15:32 DC 11/13/20 08:40 Docusate Sodium (Colace) 100 mg BID PO 11/04/20 21:00 11/13/20 15:32 DC Gabapentin (Neurontin) 100 mg QHS PO 11/04/20 21:00 11/13/20 15:32 DC 11/12/20 21:19 Heparin Sodium (Porcine) (Heparin) 5,000 units Q12H SC 11/04/20 21:00 11/11/20 14:45 DC 11/05/20 20:31 Hydralazine HCl (Apresoline) 50 mg Q8H PO 11/04/20 22:00 11/05/20 09:42 DC 11/05/20 06:07 Hydralazine HCl (Apresoline) 50 mg Q8H PO 11/13/20 14:00 11/13/20 15:32 DC Hydralazine HCl (Apresoline) 75 mg Q6H PO 11/11/20 18:00 11/12/20 09:28 DC 11/12/20 05:41 Hydralazine HCl (Apresoline) 75 mg Q8H PO 11/05/20 14:00 11/11/20 14:45 DC 11/11/20 14:25 Hydralazine HCl (Apresoline) 75 mg Q8H PO 11/12/20 14:00 11/13/20 09:22 DC 11/13/20 05:52 Isosorbide Mononitrate (Imdur) 30 mg QAM PO 11/12/20 09:25 11/13/20 15:32 DC 11/13/20 08:40 Labetalol HCl (Normodyne, Trandate) 100 mg Q8H PO 11/04/20 22:00 11/11/20 09:43 DC 11/11/20 05:18 Menthol/Methyl Salicylate (Bengay Cream) apply to lower extremit... TIDP PRN TOP mild pain 11/05/20 20:55 11/13/20 15:32 DC Pantoprazole Sodium (Protonix) 40 mg DAILY PO 11/05/20 09:00 11/13/20 15:32 DC 11/13/20 08:39 Polyethylene Glycol (Miralax) 1 pkt DAILY PRN PO CONSTIPATION 11/04/20 16:25 11/13/20 15:32 DC Ramelteon (Rozerem) 8 mg QHS PRN PO INSOMNIA 11/10/20 21:10 11/11/20 14:45 DC 11/10/20 21:29 Senna (Senokot) 1 tab QHS PO 11/04/20 21:00 11/13/20 15:32 DC Sucroferric Oxyhydroxide (Velphoro) 500 mg WM PO 11/04/20 18:00 11/07/20 12:25 DC 11/07/20 09:03 Tramadol HCl (Ultram) 50 mg Q4HP PRN PO MODERATE PAIN (PS 5-7) 11/04/20 16:25 11/10/20 10:53 DC 11/06/20 21:00 Allergies Coded Allergies: No Known Allergies (Unverified , 03/04/14) Assessment/Plan Date Seen The patient was seen on 11/13/20 in AM. Plan / VTE VTE Prophylaxis Ordered?: No Plan Orders past 48 Hours Orders Hydralazine Hcl (Apresoline) (11/12/20 14:00) Isosorbide Mononitrate Xr (Imdur) (11/12/20 09:25) Room Privileges (Pm&R) (11/12/20 12:28) Hydralazine Hcl (Apresoline) (11/13/20 14:00) Discharge/Transfer Order (11/13/20 09:33) Patient Discharge Instruction (11/13/20 09:33) Plan Text Weakness sec to severe Rhabdomyolysis-->Improved ANDREA requiring HD-->improving HTN-->better controlled Cr gradually improving. Cont Coreg,Hydralazine and Isosorbide on DC. Follow up nephrology as outpatient. OK to OK home ZEINA SAAVEDRA MD Nov 13, 2020 22:08
== END 2020-11-13 11:50 | disposition home or self-care (01) | DRG 558 ==
LOC: M PM&R 14:47 → UNDOADMIN 14:47
PROVIDERS: ADMIT Physical Medicine & Rehabilitation; ATTEND Physical Medicine & Rehabilitation
PROC: 05PYX3Z Removal of Infusion Device from Upper Vein, External Approach (ICD-10-PCS; principal; 2020-11-07)
DX: M62.82 Rhabdomyolysis (principal); N17.9 Acute kidney failure, unspecified; R53.1 Weakness; I10 Essential (primary) hypertension; G47.33 Obstructive sleep apnea (adult) (pediatric); E87.6 Hypokalemia; M54.5 Low back pain; E66.9 Obesity, unspecified; Z74.09 Other reduced mobility; Z74.1 Need for assistance with personal care; E83.51 Hypocalcemia; E83.39 Other disorders of phosphorus metabolism; Z79.899 Other long term (current) drug therapy

== ENCOUNTER → 2020-11-21 | Outpatient (REF) | payer OTHER ==
[~2020-11-21] MED LIST changes: +CARV25TA PO; +GABA-1171 PO; +ISOS1TAB35 PO
[2020-11-21 14:11] LABS: PERCENT SATURATION 43.7 % (19.7-50.0)
== END ==
LOC: M LAB REF 13:23
PROVIDERS: ATTEND Internal Medicine Nephrology
DX: D50.9 Iron deficiency anemia, unspecified (principal)

== ENCOUNTER 2021-07-16 06:58 | Emergency (ER) | payer OTHER ==
[~2021-07-16] VITALS: Ht 175.3 cm; Wt 98.6 kg
[2021-07-16 10:29] VITALS: BP 141/85
== END 2021-07-16 10:30 | disposition home or self-care (01) ==
LOC: M ED 06:58
DX: S93.401A Sprain of unspecified ligament of right ankle, initial encounter (principal); X50.0XXA Overexertion from strenuous movement or load, initial encounter; Y92.9 Unspecified place or not applicable; Y93.9 Activity, unspecified; Y99.9 Unspecified external cause status; I10 Essential (primary) hypertension; G47.33 Obstructive sleep apnea (adult) (pediatric); F17.200 Nicotine dependence, unspecified, uncomplicated; Z79.899 Other long term (current) drug therapy

== ENCOUNTER → 2022-04-01 | Outpatient (CLI) | payer OTHER ==
[~2022-04-01] MED LIST changes: -LABE100T4 PO; +LABE100T6 PO
[2022-04-01 10:11] LABS: ALBUMIN 4.2 G/DL (3.2-5.2); ALKALINE PHOSPHATASE 56 U/L (46-116); ALT/SGPT 45 U/L (7.0-40); AST/SGOT 45 U/L (<34); BILIRUBIN,TOTAL 0.9 MG/DL (0.3-1.2); BLOOD UREA NITROGEN 21 MG/DL (9-23); CALCIUM LEVEL 9.3 MG/DL (8.5-10.1); CARBON DIOXIDE LEVEL 28 MMOL/L (20-31); CHLORIDE LEVEL 100 MMOL/L (98-107); CHOLESTEROL LEVEL 186 MG/DL (<200); CREATININE FOR GFR 1.06 MG/DL (0.70-1.30); GLOMERULAR FILTRATION RATE > 60.0 (>56); GLUCOSE, FASTING 110 MG/DL (60-100); LDL CHOLESTEROL 111.4 MG/DL (<100); NON-HDL-C 128 MG/DL; POTASSIUM SERUM 3.6 MMOL/L (3.5-5.1); SODIUM LEVEL 138 MMOL/L (136-145); TOTAL PROTEIN 7.2 G/DL (5.7-8.2); TRIGLYCERIDES LEVEL 83 MG/DL (<150)
== END ==
LOC: M LAB 08:48
PROVIDERS: ATTEND Internal Medicine
DX: I10 Essential (primary) hypertension (principal)

== ENCOUNTER 2022-06-24 08:10 | Day surgery (SDC) | payer OTHER ==
[~2022-06-24] VITALS: Ht 175.3 cm; Wt 371.5 kg
[~2022-06-24 08:10] MED LIST changes: +ATEN50TA9 PO; +CALC600T60 PO; +HYDR-3911 PO; +NS 1,000 ML IV ONE
[2022-06-24] MEDS ORDERED: propofoL 500 MG/50 ML VIAL As Ordered ONE (09:12)
[2022-06-24] MEDS ORDERED: LIDOCAINE 2% 100MG/5ML SDV (FOR ANES.) As Ordered ONE (09:12)
[2022-06-24 10:02] VITALS: BP 123/66
== END 2022-06-24 10:15 | disposition home or self-care (01) ==
LOC: M OPP 08:10
PROVIDERS: ATTEND Internal Medicine Gastroenterology
DX: K64.4 Residual hemorrhoidal skin tags (principal); K64.8 Other hemorrhoids; G47.33 Obstructive sleep apnea (adult) (pediatric); Z99.89 Dependence on other enabling machines and devices; Z79.899 Other long term (current) drug therapy; F17.290 Nicotine dependence, other tobacco product, uncomplicated

== ENCOUNTER → 2022-11-08 | Outpatient (CLI) | payer OTHER ==
[~2022-11-08] MED LIST changes: -GABA-283 PO; +GABA-284 PO; -NS 1,000 ML IV ONE
[2022-11-08 07:39] LABS: HEMATOCRIT 45.8 % (42.0-52.0); HEMOGLOBIN 15.4 g/dl (13.5-17.5); MEAN CORPUSCULAR HEMOGLOBIN 30.7 pg (27.0-33.0); MEAN CORPUSCULAR HGB CONC 33.6 g/dl (32.0-36.5); MEAN CORPUSCULAR VOLUME 91.4 fl (80.0-96.0); PLATELET COUNT, AUTOMATED 285 10^3/uL (150-450); RED BLOOD COUNT 5.01 10^6/uL (4.30-6.10); WHITE BLOOD COUNT 7.9 10^3/uL (4.0-10.0)
[2022-11-08 08:00] LABS: BLOOD UREA NITROGEN 25 MG/DL (9-23); CARBON DIOXIDE LEVEL 30 MMOL/L (20-31); CHLORIDE LEVEL 100 MMOL/L (98-107); CREATININE FOR GFR 1.02 MG/DL (0.70-1.30); GLOMERULAR FILTRATION RATE > 60.0 (>56); GLUCOSE, FASTING 112 MG/DL (60-100); POTASSIUM SERUM 3.5 MMOL/L (3.5-5.1); SODIUM LEVEL 137 MMOL/L (136-145)
== END ==
LOC: M LAB 07:00
PROVIDERS: ATTEND Internal Medicine
DX: I10 Essential (primary) hypertension (principal)

== ENCOUNTER → 2023-02-08 | Outpatient (CLI) | payer OTHER ==
[2023-02-08 07:21] LABS: ALBUMIN 4.4 G/DL (3.2-5.2); ALKALINE PHOSPHATASE 57 U/L (46-116); ALT/SGPT 46 U/L (7.0-40); AST/SGOT 34 U/L (<34); BILIRUBIN,TOTAL 0.5 MG/DL (0.3-1.2); BLOOD UREA NITROGEN 18 MG/DL (9-23); CALCIUM LEVEL 9.7 MG/DL (8.5-10.1); CARBON DIOXIDE LEVEL 29 MMOL/L (20-31); CHLORIDE LEVEL 101 MMOL/L (98-107); CHOLESTEROL LEVEL 186 MG/DL (<200); CHOLESTEROL RISK RATIO 3.67 (<5); CREATININE FOR GFR 0.93 MG/DL (0.70-1.30); GLOMERULAR FILTRATION RATE > 60.0 (>56); HDL CHOLESTEROL 50.6 MG/DL (>40); LDL CHOLESTEROL 104.4 MG/DL (<100); NON-HDL-C 135.4 MG/DL; POTASSIUM SERUM 3.7 MMOL/L (3.5-5.1); SODIUM LEVEL 137 MMOL/L (136-145); TOTAL PROTEIN 7.4 G/DL (5.7-8.2); TRIGLYCERIDES LEVEL 155 MG/DL (<150)
[2023-02-09 06:54] LABS: GLUCOSE, FASTING 95 MG/DL (60-100)
== END ==
LOC: M LAB 06:09
PROVIDERS: ATTEND Internal Medicine
DX: I10 Essential (primary) hypertension (principal)

== ENCOUNTER → 2023-08-09 | Outpatient (CLI) | payer OTHER ==
[~2023-08-09] MED LIST changes: -HYDR-3911 PO; -HYDR50TA PO; +HYDR50TA46 PO; +HYDR50TA47 PO
[2023-08-09 07:53] LABS: ALBUMIN 4.1 G/DL (3.2-5.2); ALKALINE PHOSPHATASE 65 U/L (46-116); ALT/SGPT 47 U/L (7.0-40); AST/SGOT 37 U/L (<34); BILIRUBIN,TOTAL 0.6 MG/DL (0.3-1.2); BLOOD UREA NITROGEN 21 MG/DL (9-23); CALCIUM LEVEL 9.5 MG/DL (8.5-10.1); CARBON DIOXIDE LEVEL 27 MMOL/L (20-31); CHLORIDE LEVEL 103 MMOL/L (98-107); CHOLESTEROL LEVEL 173 MG/DL (<200); CREATININE FOR GFR 0.94 MG/DL (0.70-1.30); GLOMERULAR FILTRATION RATE > 60.0 (>56); GLUCOSE, FASTING 111 MG/DL (60-100); HDL CHOLESTEROL 55.7 MG/DL (>40); LDL CHOLESTEROL 101.3 MG/DL (<100); NON-HDL-C 117.3 MG/DL; POTASSIUM SERUM 3.6 MMOL/L (3.5-5.1); SODIUM LEVEL 137 MMOL/L (136-145); TOTAL PROTEIN 7.1 G/DL (5.7-8.2); TRIGLYCERIDES LEVEL 80 MG/DL (<150)
== END ==
LOC: M LAB 06:37
PROVIDERS: ATTEND Internal Medicine
DX: I10 Essential (primary) hypertension (principal); R73.01 Impaired fasting glucose; E78.5 Hyperlipidemia, unspecified

== ENCOUNTER → 2024-02-09 | Outpatient (CLI) | payer OTHER ==
[~2024-02-09] MED LIST changes: +GABA-1172 PO; -GABA-282 PO
[2024-02-09 13:20] LABS: ALBUMIN 4.2 G/DL (3.2-5.2); ALKALINE PHOSPHATASE 69 U/L (40-129); ALT/SGPT 55 U/L (7.0-40); AST/SGOT 50 U/L (<34); BILIRUBIN,TOTAL 0.4 MG/DL (0.3-1.2); BLOOD UREA NITROGEN 25 MG/DL (9-23); CALCIUM LEVEL 9.9 MG/DL (8.5-10.1); CARBON DIOXIDE LEVEL 27 MMOL/L (20-31); CHLORIDE LEVEL 100 MMOL/L (98-107); CHOLESTEROL LEVEL 194 MG/DL (<200); CHOLESTEROL RISK RATIO 3.31 (<5); CREATININE FOR GFR 0.92 MG/DL (0.70-1.30); GLOMERULAR FILTRATION RATE > 60.0 (>56); GLUCOSE, FASTING 98 MG/DL (60-100); HDL CHOLESTEROL 58.6 MG/DL (>40); LDL CHOLESTEROL 110.2 MG/DL (<100); NON-HDL-C 135.4 MG/DL; POTASSIUM SERUM 4.1 MMOL/L (3.5-5.1); SODIUM LEVEL 138 MMOL/L (136-145); TOTAL PROTEIN 7.9 G/DL (5.7-8.2); TRIGLYCERIDES LEVEL 126 MG/DL (<150)
== END ==
LOC: M LRY 07:26
PROVIDERS: ATTEND Internal Medicine
DX: I10 Essential (primary) hypertension (principal)